=== PATIENT | female | born 2000 | race Two or more races ===

== ENCOUNTER 2023-07-06 22:02 | Emergency (ER) | payer MEDICAID, SELFPAY ==
--- NOTE | ~2023-07-06 | US_ITS ---
EXAMINATION: US ABDOMEN LIMITED CLINICAL INFORMATION: Abdominal pain and vomiting.. COMPARISON: None available. TECHNIQUE: Real-time imaging of the right upper quadrant abdominal viscera. FINDINGS: PANCREAS: The visualized portions of pancreas are within normal limits. The tail of the pancreas is obscured by bowel gas. LIVER: Normal. The liver is normal in size. The liver contour is normal. Parenchymal echogenicity is normal. No focal hepatic lesion. There is no intrahepatic biliary duct dilatation seen. GALLBLADDER: Significant shadowing extends from the gallbladder fossa consistent numerous gallstones. There is no gallbladder wall thickening or pericholecystic fluid. There is no tendon tenderness in the area of the gallbladder. Midline pain is noted. COMMON BILE DUCT: Normal in caliber measuring 0.3 cm in diameter. RIGHT KIDNEY: Normal. No hydronephrosis. No renal calculi or focal parenchymal lesions. The kidney measures 10.3 cm in maximum dimension. FREE FLUID: None. US/US abdomen limited IMPRESSION: Cholelithiasis. No gallbladder wall thickening or pericholecystic fluid. No tenderness in the area of the gallbladder. No biliary dilatation.
[2023-07-06 22:28] VITALS: BP 112/70; PULSE 68; RESP 18; TEMP 36.3; O2SAT 99; BMI 35.1
[2023-07-07 00:03] LABS: MANUAL DIFF FLAG NO
[2023-07-07 00:04] LABS: Basophils Absolute Auto 0.1 X10*3/uL (0.0-0.2); Basophils Percent Auto 0.8 % (0-2); Eosinophils Absolute Auto 0.1 X10*3/uL (0.0-0.4); Eosinophils Percent Auto 0.9 % (0-4); Hematocrit 40.8 % (37.0-47.0); Imm Gran Abs Auto 0.04 X10*3/uL (0.00-0.03); Imm Gran Pct Auto 0.3 % (0.0-0.4); Lymphocytes Absolute Auto 2.1 X10*3/uL (1.2-4.9); Lymphocytes Percent Auto 16.4 % (20-40); Mean Corpuscular HGB Conc 31.9 g/dl (31.0-35.0); Mean Corpuscular Hemoglobin 27.1 pg (27.0-33.0); Mean Corpuscular Volume 85.2 fL (80.0-98.0); Mean Platelet Volume 8.4 fL (9.4-12.3); Monocytes Absolute Auto 0.7 X10*3/uL (0.1-1.2); Monocytes Percent Auto 5.2 % (2-11); Neutrophils Absolute Auto 9.9 x10*3/uL (2.0-8.3); Neutrophils Percent Auto 76.4 % (45-73); Platelet Count 369 X10*3/uL (160-400); Red Blood Count 4.79 X10*6/uL (4.20-5.50); Red Cell Distribution Width 14.6 % (11.0-16.0)
[2023-07-07 00:24] LABS: Alanine Aminotransferase 108 U/L (0-31); Albumin Level 3.7 g/dL (3.5-5.0); Alkaline Phosphatase 147 U/L (39-117); Anion Gap 13 (12-20); Aspartate Amino Transferase 280 U/L (5-31); Bilirubin Total 0.8 mg/dL (0.0-1.0); Blood Urea Nitrogen 13 mg/dL (9-16); Calcium 9.9 mg/dL (8.4-10.2); Carbon Dioxide 26 mmol/L (22-29); Chloride 107 mmol/L (96-108); Creatinine Clr Calc Pharmacy 113.4; Estimated Glomerular Filt Rate > 60; Glucose Random 93 mg/dL (60-115); Lipase 21 U/L (8-78); Potassium 3.9 mmol/L (3.3-5.1); Sodium 142 mmol/L (135-145); Total Protein 6.3 g/dL (6.5-8.0)
[2023-07-07 01:12] VITALS: BP 114/73; PULSE 77; RESP 20; TEMP 36.7; O2SAT 99
[2023-07-07] MEDS: Ibuprofen 600 MG TABLET PO (01:20)
--- OUTSIDE RECORDS SUMMARY | 2023-07-07 02:52 | XMS_ITS | Continuity of Care Document ---
Author Name Unknown Organization [facility] Address [address] [place] [id number]- Care Team Providers Care Electrical Journeyman Name Role Phone Not on Staff, PCP Primary Care Physician Unavail able Encounter [facility] Date(s): 05/02/23 - 06/07/[address] [address]- Attending Physician: Марина Norwood MD Admitting Physician: Марина Norwood MD Referring Physician: Emmanuel SHAH, WOOD TURNING LATHE OPERATOR, Ashely Prieto Allergies, Adverse Reactions, Alerts No Known Allergies Immunizations Given and Recorded Vaccine Date Status Refusal Reason influenza virus vaccine, inactivated 05/01/23 Give n influenza virus vaccine, inactivated 04/24/23 Give n influenza virus vaccine, inactivated 06/10/22 Bhanu rded influenza virus vaccine, inactivated 1 08/16/19 Gi shireen influenza virus vaccine, inactivated 04/28/16 Give n influenza virus vaccine, inactivated 04/30/10 Give n influenza virus vaccine, inactivated 07/29/07 Give n tetanus/diphtheria/pertussis, acel(Tdap) 03/13/23 Given tetanus/diphtheria/pertussis, acel(Tdap) 09/03/12 Given SARS-CoV-2 (COVID-19) mRNA BNT-162b2 vac 08/28/21 Recorded SARS-CoV-2 (COVID-19) mRNA BNT-162b2 vac 03/26/21 Recorded SARS-CoV-2 (COVID-19) mRNA BNT-162b2 vac 03/05/21 Recorded Meningococcal Conjugate Vaccine 2 08/16/19 Given Meningococcal Conjugate Vaccine 3 02/08/14 Given Hepatitis A Adult Vaccine 08/16/19 Recorded Human Papillomavirus Vaccine 4 02/21/15 Given Human Papillomavirus Vaccine 5 02/08/14 Given Varicella Virus Vaccine 09/03/12 Given Varicella Virus Vaccine 12/15/00 Given Poliovirus Vaccine, Inactivated 04/30/10 Given Poliovirus Vaccine, Inactivated 10/31/03 Given Poliovirus Vaccine, Inactivated 01/01/00 Given Poliovirus Vaccine, Inactivated 99 Given Measles/Mumps/Rubella Virus Vaccine 10/31/03 Given Measles/Mumps/Rubella Virus Vaccine 12/15/00 Given Diphth/Tet/Pertussis, Acel (oldterm) 10/31/03 Give n Diphth/Tet/Pertussis, Acel (oldterm) 02/26/01 Give n Diphth/Tet/Pertussis, Acel (oldterm) 03/16/00 Give n Diphth/Tet/Pertussis, Acel (oldterm) 01/01/00 Give n Diphth/Tet/Pertussis, Acel (oldterm) 99 Give n Haemophilus B Conj Vaccine (oldterm) 02/26/01 Give n Haemophilus B Conj Vaccine (oldterm) 03/16/00 Give n Haemophilus B Conj Vaccine (oldterm) 01/01/00 Give n Haemophilus B Conj Vaccine (oldterm) 99 Give n Pneumococcal Conjugate (PCV7) (oldterm) 12/15/00 G iven Pneumococcal Conjugate (PCV7) (oldterm) 08/20/00 G iven Pneumococcal Conjugate (PCV7) (oldterm) 03/16/00 G iven Hepatitis B Vaccine (old term) 12/15/00 Given Hepatitis B Vaccine (old term) 99 Given Hepatitis B Vaccine (old term) 99 Given 1Result Comment: 22179-608-23 2Result Comment: [id number] 3Result Comment: VIS GIVEN 04/04/11 4Result Comment: gardasil 9 5Result Comment: VIS GIVEN 11/05/12 Medications Motrin IB 200 mg oral tablet 3 tablet = 600 mg, By Mouth, Every 6 hours, PRN for pain, # 50 tablet, 0 Refills, Maintenance, 06/02/23 6:54:00 EST, Tablet, [id number], Partial fill upon patient request if the prescription is for a schedule II opioid drug., 158, cm, 06/02/23... Start Date: 06/02/23 Status: Ordered Problem List Condition Confirmation Course Effective Dates Status Health St atus Informant Chlamydia infection during Confirmed Active History of delivery, currently in second trimester Confirmed Active History of chlamydia Confirmed Active History of Headache, migraine 1 Confirmed Active Obese class II Confirmed Active 1Treat on e her own with Tylenol Social History Social History Type Response Smoking Status Never smoker; Tobacc o user in household: No entered on: 01/26/18 Sex Patient Care team information Care Team Personnel Name: Not on Staff, PCP Position: [facility] Physician (General Medicine) Member Role: PCP Name: Peter Li MD Position: [facility] NETWORK SERVICES PROJECT MANAGER MD Member Role: Lifetime NETWORK SERVICES PROJECT MANAGER Physician Address: Address: [address] [place] [address] [place] [address]- Care Team Related Persons Name: CAN ELMORE Address: [id number] Address: home [address] Name: AMANDA HANEY Address: [address] [place] [address] Name: HECTOR GILLILAND Address: [address] [place] [address] Name: MACIE BOUDREAUX Address: [address] Address: home [address] Name: LAYTON COHN Address: [address] [place] [address]
--- OUTSIDE RECORDS SUMMARY | 2023-07-07 02:52 | XMS_ITS | Continuity of Care Document ---
Author Name Unknown Organization [facility] Address [address] [place] [id number]- Care Team Providers Care Alumni Secretary Name Role Phone Jacobo Angel MD Primary Care Physician [phone] [facility]counter [facility] Date(s): 01/21/23 - 02/20/23 [facility] [address] [address]- Allergies, Adverse Reactions, Alerts No Known Allergies Immunizations Given and Recorded Vaccine Date Status Refusal Reason influenza virus vaccine, inactivated 06/10/22 Bhanu rded influenza virus vaccine, inactivated 1 08/16/19 Gi shireen influenza virus vaccine, inactivated 04/28/16 Give n influenza virus vaccine, inactivated 04/30/10 Give n influenza virus vaccine, inactivated 07/29/07 Give n SARS-CoV-2 (COVID-19) mRNA BNT-162b2 vac 08/28/21 Recorded SARS-CoV-2 (COVID-19) mRNA BNT-162b2 vac 03/26/21 Recorded SARS-CoV-2 (COVID-19) mRNA BNT-162b2 vac 03/05/21 Recorded Meningococcal Conjugate Vaccine 2 08/16/19 Given Meningococcal Conjugate Vaccine 3 02/08/14 Given Hepatitis A Adult Vaccine 08/16/19 Recorded Human Papillomavirus Vaccine 4 02/21/15 Given Human Papillomavirus Vaccine 5 02/08/14 Given tetanus/diphtheria/pertussis, acel(Tdap) 09/03/12 Given Varicella Virus Vaccine 09/03/12 Given Varicella [...] Vaccine (old term) 99 Given 1Result Comment: [id number] 2Result Comment: [id number] 3Result Comment: VIS GIVEN 04/04/11 4Result Comment: gardasil 9 5Result Comment: VIS GIVEN 11/05/12 Medications aspirin 81 mg oral delayed release tablet See Instructions, 2 tablet By Mouth Daily at bedtime from 12 weeks gestation until 2 weeks , # 60 tablet, Refills 8, Tot. Refills 8, Maintenance, 11/04/22 8:59:00 EDT, Instructions Replace Required Details, Route to Pharmacy Electronically,... Start Date: 11/04/22 Status: Ordered O2 Sat Monitor See Instructions, # 1 each, Maintenance, check three times per day. call for pulse >115 or O2 <95, 02/10/23 17:42:00 EDT, Supply, 157.48, cm, 11/04/22 8:44:00 EDT, Height, 91, kg, 10/28/22 18:22:00 EDT, Dry Weight Start Date: 02/10/23 Status: Ordered Paxlovid 150 mg-100 mg (150 mg-100 mg Dose) oral tablet See Instructions, 300mg nirmatrelvir (two 150mg tablets) with 100mg ritonavir (one tablet). All 3 tablets taken together twice daily for 5 days, with or without food. Dispense: 30 tablets, # 30 tablet, 0 Refills, Maintenance, 02/10/23 18:53:00 EDT,... Start Date: 02/10/23 Status: Ordered Multivitamins with Vitamin B Complex, Vitamin C, Minerals and L- Methylfolate oral capsule 1 capsule, By Mouth, Daily, # 90 capsule, 2 Refills, Maintenance, 09/23/22 18:38:00 EDT, Capsule, [id number], Partial fill upon patient request if the prescription is for a schedule II opioiddrug., 1 capsule By Mouth Daily, 157.48, cm, 09/15/... Start Date: 09/23/22 Status: Ordered Prometrium 200 mg oral capsule See Instructions, place 1 capsule in vagina Daily at bedtime, # 30 capsule, 5 Refills, Acute 04/27/23 13:48:00 EST, 11/19/22 13:46:00 EDT, [id number], Partial fill upon patient request if theprescription is for a schedule II opioid drug., 157... Start Date: 11/19/22 Stop Date: 04/27/23 Status: Ordered Tylenol 8 Hour Caplet = 1,300 mg, By Mouth, Every 8 hours, 0 Refills, Maintenance, 11/04/22 8:46:00 EDT, Partial fill upon patient request if the prescription is for a schedule II opioid drug. Start Date: 11/04/22 Status: Ordered Unisom 25 mg oral tablet See Instructions, take 1 tablet by mouth at bedtime, # 60 tablet, 1 Refills, Maintenance, 11/04/22 8:59:00 EDT, [id number], Partial fill upon patient request if the prescription is for a schedule II opioid drug., 157.48, cm, 11/04/22 8:44:00 E... Start Date: 11/04/22 Status: Ordered Vitamin B6 25 mg oral tablet See Instructions, 1 tablet By Mouth 3 times Daily, # 90 tablet, 1 Refills, Maintenance, 11/04/22 8:59:00 EDT, [id number], Partial fill upon patient request if the prescription is for a schedule II opioid drug., 157.48, cm, 11/04/22 8:44:00 EDT... Start Date: 11/04/22 Status: Ordered Problem List Condition Confirmation Course Effective Dates Status H ealth Status Informant History of delivery, currently in second trimester Confirmed Active History of chlamydia Confirmed Active History of Headache, migraine 1 Confirmed Active Obese class II Confirmed Active Oligomenorrhea Confirmed Active 1Treat on e her own with Tylenol Social History Social History Type Response Smoking Status Never smoker; Tobacc o user in household: No entered on: 01/26/18 Sex Patient Care team information Care Team Personnel Name: Jacobo Angel MD Position: [facility] Resident Member Role: PCP Address: Address: [address] [place] [address] Name: Peter Li MD Position: [facility] PROCESS OPERATOR MD Member Role: Lifetime PROCESS OPERATOR Physician Address: Address: [address] [place] [address] [facility], [address] Care Team Related Persons Name: CAN ELMORE Address: [address] Address: home [address] Name: AMANDA HANEY Address: [address] [place] [address] Name: HECTOR GILLILAND Address: [address] [place] [address] Name: LAYTON COHN Address: [address] [place] [address]
--- OUTSIDE RECORDS SUMMARY | 2023-07-07 02:52 | XMS_ITS | Continuity of Care Document ---
Author Name Unknown Organization [facility] ter Address [address] [place] [id number]- Care Team Providers Care Insole Channeler Name Role Phone Not on Staff, PCP Primary Care Physician Unavail able Encounter [facility] Date(s): 05/30/23 - 06/02/[address] [address]- Discharge Disposition: A-D/C Home Attending Physician: Mani BANERJEE [OB], Ariana Schrader Admitting Physician: Mani BANERJEE [OB], Ariana Schrader Referring Physician: Mani BANERJEE [OB], Ariana Schrader Allergies, Adverse Reactions, Alerts No Known Allergies [...] Vaccine (old term) 99 Given 1Result Comment: 25945-960-60 2Result Comment: [id number] 3Result Comment: VIS GIVEN 04/04/11 4Result Comment: [...] 1Treat on e her own with Tylenol Vital Signs Most recent to oldest [Reference Range]: 1 2 3 Height 158 cm (06/02/23 10:00 AM) 158 cm (06/02/23 12:09 AM) 158 cm (06/01/23 8:51 PM) Weight 91 kg (05/30/23 6:47 PM) 91 kg (05/30/23 5:32 PM) Oxygen Saturation [94-100 %] 96 % (06/02/23 12:09 AM) 96 % (06/01/23 4:05 AM) 98 % (06/01/23 12:06 AM) Pulse Rate [55-90 bpm] 66 bpm (06/02/23 10:00 AM) 75 bpm (06/02/23 12:09 AM) 64 bpm (06/01/23 4:38 PM) Body Mass Index [18.5-24.99 kg/m2] 36.45 kg/m2 *>HHI* (05/30/23 5:32 PM) Blood Pressure [90-138/55-84 mm Hg] 128/86mm Hg (06/02/23 10:00 AM) 123/81mm Hg (06/02/23 12:09 AM) 114/77mm Hg (06/01/23 4:38 PM) Respiratory Rate [16-30 br/min] 18 br/min (06/02/23 10:00 AM) 18 br/min (06/02/23 12:09 AM) 18 br/min (06/01/23 4:38 PM) Temperature [96.8-100.4 DegF] 98.3 DegF (06/02/23 10:00 AM) 98.3 DegF (06/02/23 12:09 AM) 98.0 DegF (06/01/23 4:38 PM) Mode of Delivery (Oxygen) Room air (06/02/23 12:09 AM) Room air (06/01/23 4:05 AM) Room air (06/01/23 12:06 AM) Blood pressure sites Arm, right (06/01/23 4:38 PM) Arm, left (06/01/23 8:20 AM) Arm, left (05/31/23 6:54 PM) Temperature Route Axillary (06/02/23 10:00 AM) Oral (06/02/23 12:09 AM) Oral (06/01/23 4:38 PM) Dry Weight 91 kg (05/30/23 5:32 PM) Social History Social History Type Response Smoking Status Never smoker; Tobacc o user in household: No entered on: 01/26/18 Sex History and physical note * Chrissy Mcgraw DO: PERFORM Event Display: History and Physical Hospital Authored Date: Patient: ??AMANDA BOUDREAUX ? Age:??22 Years?Sex:??Female?:??2000?? OB Reason for Admission OB Reason for Admission?? No qualifying data available. LMP/EGA/ROSHAN Gestational Age (EGA) and ROSHAN? * Note: EGA calculated as of 05/30/2023 ?? ROSHAN:??05/23/2023?EGA*:??41 weeks ? History?(0,1,0,0)?Method:??Last Menstrual Period??(08/16/2022) History of Present Illness Patient is a 22 year old ??at 41w0d??gestation??presenting for induction of labor in the setting of late term gestation. She denies contractions,??leakage of fluid, or vaginal bleeding. Endorses good movement. Denies fever/chills, CAMPBELL, dizziness, changes in vision, CP, SOB, RUQ pain, UE/LE swelling. Overall, doing well with no complaints. ?? Reports uncomplicated . History of pre term labor at 21 weeks with ultimate demise after delivery. Denies past medical. Not taking any medications. Denies past surgeries.?? Review of Systems Constitutional:??No fever, chills, or fatigue. HEENT:??No changes in vision, sneezing, congestion, runny nose or sore throat. Skin:??No rash or itching. Cardiovascular:??No chest pain. Respiratory:??No shortness of breath. Gastrointestinal:??No abdominal pain, anorexia, nausea/vomiting, constipation/diarrhea. Genitourinary:??No burning micturition, urinary frequency or incontinence. Gynecologic: No vaginal bleeding, vaginal discharge, or vaginal itching. Neurologic:??No headaches. Musculoskeletal:??No muscle pains. Psychiatric:??No depression or anxiety. Physical Exam Vitals & Measurements T:??98.1?F?? HR:??86??(Peripheral)?? RR:??20?? BP:??130/80?? SpO2:??97%?? HT:??158??cm?? WT:??91??kg?? BMI:??36.45?? Constitutional:??Well-developed, no acute distress. Respiratory:??Equal chest rise bilaterally, no labored breathing.? Abdomen/GI:??Soft, non-tender, non-distended, no guarding or rebound tenderness.??Gravid. Gynecologic:?External Genitalia: normal exam, without lesions ??Cervix:??4/20/-3 Extremities:??Warm and well-perfused.?? Skin:??No rash or lesions.?? Neurological/Psychiatric:??Appearance appropriate, mood and affect stable. ?? Presentation:??cephalic by US OB Assessment Baby A Baseline:130 Baseline Description:Normal, 110-160 bpm Baseline Variability:Moderate variability Accelerations:Present Deceleration:None Activity:Present Uterine Number of Contractions per 10 minutes1 Monitor Mode, UterineExternal Cervical Cervical Dilatation4 cm Cervical Krwdqireia74% Station-3 Assessment/Plan Assessment:??22 year old at 41w0d admitted for induction of labor in the setting of late term gestation. GBS negative. Rh positive. With unfavorable cervical exam and Stevens score of 4, plan to start induction with misoprostol. Plan to recheck cervix prior to the next dose to assess possible switch to Pitocin. Category I tracing with reassuring maternal and status. ?? Encounter for induction of labor (Z34.90):? -Admit to L&D -CBC, Type and Screen ordered -Induction: misoprostol -Continuous monitoring and toco -Labor coping: prn -Rubella status: immune -Expected sex: female -Re-eval in 2 hours or prn ?? History of delivery (Z87.51):? H/o delivery at 21w3d, painless premature cervical dilation, infant after delivery s/p MFM consult s/p progesterone ?? Obesity in (O99.210):? BMI 37 at new OB ? Discussed with Dr. Singleton, attending physician. OB team notified. OB History History?(0,1,0,0)? # 1 ?Baby 1 ?Outcome Date:??07/08/2022?Outcome or Result:??Vaginal ?Gest Age:??21 weeks 3 days ? Outcome:??Live ? Sex:??Female?Wt:?343 g ?Hospital:??[facility] ?Comment:??12 mins then demise Labs Labs Labs & Tests Antibody Screen: Negative (11/04/22) Chlamydia Trachomatis Amplified Probe: NEGATIVE (04/24/23) Down Syndrome Age Risk FTS: Age Risk: (11/18/22) Down Syndrome Scrn Risk FTS: Screening Risk: (11/18/22) Glucose 3hr Gest Beatris, +120 minutes: 95 mg/dL (03/23/23) Glucose 3hr Gest Beatris, +180 minutes: 127 mg/dL (03/23/23) Glucose 3hr Gest Beatris, +60 minutes: 150 mg/dL (03/23/23) Glucose 50 Gm, +60 Minutes:??136 mg/dL??High (03/13/23) Glucose Tolerance, Fastin mg/dL (03/23/23) Hct:??33.1 %??Low (03/13/23) Hepatitis B Surface Antigen: NEGATIVE (11/04/22) Hepatitis C Ab: NEGATIVE (11/04/22) Hgb:??11 Gm/dL??Low (03/13/23) HIV 4th Generation Ab-Ag Result: NEGATIVE (11/04/22) RPR Titer Result: NOT INDICATED (03/13/23) Rubella IgG Ab: POSITIVE (11/04/22) Syphilis Screen by SYED: NEGATIVE (03/13/23) Trisomy 18 Scrn Risk FTS: Screening Risk: (11/18/22) Urine Culture: Urine Culture (11/04/22) Problem List Active Active Problem List Chlamydia infection during : (Medical) History of chlamydia: (Medical) History of Headache, migraine: (Medical) Treat on e her own with Tylenol History of delivery, currently in second trimester: (Medical) Obese class II: (Medical) : (Obstetric) (08/16/22) Procedure/Surgical History Vaginal delivery of fetus Home Medications Aspirin: 81 mg = 1 tablet, By Mouth, Daily Doxylamine: See Instructions, take 1 tablet by mouth at bedtime Durable Medical Equipment: See Instructions, check three times per day. call for pulse >115 or O2 <95 Multivitamin, : 1 capsule, By Mouth, Daily Pyridoxine: See Instructions, 1 tablet By Mouth 3 times Daily Allergies NKA Social History Alcohol Use: Never. Electronic Cigarette/Vaping Electronic Cigarette Use: Never. Employment/School Status: Employed. Other: [employer]. Exercise Self assessment: Fair condition. Home/Environment Living situation: Home/Independent. Lives with: Mother. Nutrition/Health Diet: Regular. Sexual Sexually involved in last 6 months: Yes. Gender identity: Identifies as female. Self described orientation: Straight or heterosexual. Substance Abuse Use: Never. Tobacco Never smoker, Tobacco user in household: No. Family History Mother: Blood clot; DVT - Deep vein thrombosis of lower limb Father: Diabetes mellitus Other: Asthma; Cardiac disease ? 05-APR-2016 02:49:52<$>; Diabetes mellitus type II Plan No Data Found * Mani BANERJEE [OB], Ariana R: PERFORM Event Display: History and Physical Hospital Authored Date: ?Attending Attestation:??I have seen and evaluated this patient. ??I have discussed the caseand its management with the resident and agree with the findings and plan as documented above in the resident???s note. ? Hospital Progress note * Donya Rangel RN: PERFORM, SIGN, VERIFY Event Display: Progress Note Hospital Authored Date: [id number] Patient: AMANDA BOUDREAUX Age: 22 years Sex: Female : 2000 Associated Diagnoses: None Author: Donya Rangel RN Findings B.R. pt denies pain. Fundus firm contracted with mild vaginal bleeding.Pt indep with barbara care withice, tucks and barbara bottle. Pt bonding well with infant. Pt ambulating with no difficulty and tolerating po. Pt denies any difficulty with voiding. Pt is requesting to soley formula feed infant and education was provided to pt related to formula feeding. Discussed breast care r/t formula feeding. * Sangeetha Moctezuma MD: PERFORM Event Display: Progress Note Hospital Authored Date: [id number] Patient: ??AMANDA BOUDREAUX ? Age:??22 Years?Sex:??Female?:??2000?? Subjective In to round on patient. Patient is feeling well with no acute concerns. States her pain is well controlled with PO pain medications. Her lochia is??like a normal period. She is ambulating, voiding spontaneously, and tolerating a regular diet without nausea/vomiting. Denies fever, chills, chest pain, shortness of breath,??persistent headache, vision changes, RUQ pain, calf swelling or tenderness.??She is bottle??feeding. Mood is??appropriate and she is bonding well with her baby. Patient??reports that she has a??good support system at home. Review of Systems Per HPI Physical Exam Vitals & Measurements T:??98.4?F?? HR:??76??(Peripheral)?? RR:??18?? BP:??126/76?? SpO2:??96%?? HT:??158??cm?? WT:??91??kg?? BMI:??36.45?? General:??Patient resting comfortably in bed. No??acute distress. Pleasant, cooperative. Cardiovascular: No signs of fluid overload. Pulmonary: No respiratory distress, no signs of accessory muscle use. Abdomen: Fundus firm, non-tender, at umbilicus. It Programmer Analyst: Moderate amount??of blood??on peripad. Minimal perineal??edema. Psych: Appropriate mood and affect. Answering questions appropriately. Extremities: No peripheral edema. No calf asymmetry, redness, or tenderness. Assessment/Plan Assessment:??22 yo G2 now P2 s/p uncomplicated vaginal delivery on 05/31 at 41+1 weeks. The patienthad a small 2nd degree perineal laceration. Delivery was otherwise uncomplicated and she had a postplacental IUD placed. Her course has been uncomplicated and she is meeting appropriate milestones. Anticipate discharge on PPD2. ?? state (Z39.2):? - Patient meeting all appropriate milestones - Expected discharge to home??PPD2 - Continue routine care - Diet: Regular - Pain control: Ibuprofen & Tylenol - Encourage ambulation - Feeding plan:??formula/bottle feeding - Infant sex:??female - PPBC: PP IUD in place - Follow-up:??in 4-6 wks for visit ?? History of delivery (Z87.51):? -H/o delivery at 21w3d, painless premature cervical dilation, infant after delivery -s/p MFM consult -s/p progesterone ?? Obesity in (O99.210):? -Pre- BMI 37 -Normotensive ?? OB Summary : 2 . Baby A - Weight: 3.234 kg Baby A - Date, Time of : 05/31/23 15:15:00 Baby A - Gender: Female Baby A - Complications: None EGA at Documented Date, Time: 41W 1D Weight at Delivery Baby A - Delivery Type: Vaginal Delivery Complications: None OB History History?(0,1,0,0)? # 1 ?Baby 1 ?Outcome Date:??07/08/2022?Outcome or Result:??Vaginal ?Gest Age:??21 weeks 3 days ? Outcome:??Live ? Sex:??Female?Wt:?343 g ?Hospital:??[facility] ?Comment:??12 mins then demise Active Problem List Active Problem List Chlamydia infection during : (Medical) History of chlamydia: (Medical) History of Headache, migraine: (Medical) Treat on e her own with Tylenol History of delivery, currently in second trimester: (Medical) Obese class II: (Medical) : (Obstetric) (08/16/22) Home Medications Aspirin: 81 mg = 1 tablet, By Mouth, Daily Doxylamine: See Instructions, take 1 tablet by mouth at bedtime Durable Medical Equipment: See Instructions, check three times per day. call for pulse >115 or O2 <95 Multivitamin, : 1 capsule, By Mouth, Daily Pyridoxine: See Instructions, 1 tablet By Mouth 3 times Daily Medications Medications (5) Active SCHEDULED: (0) CONTINUOUS: (1) Lactated Ringers (1000 mL) Cont IV 1,000 mL (Lactated Ringers 1,000 mL) ??1,000 mL, Intrauterine, 125 mL/hr PRN: (4) Acetaminophen 325 mg Tablet (Acetaminophen Tablet) ??650 mg, By Mouth, Every 4 hours Calcium Carbonate 500 mg (Calcium 200 mg) Chewable Tablet (Tums 500 mg Tablet) ??1,000 mg 2 tablet,Chew, 3 times a day Docusate Sodium 100 mg Capsule (Docusate Sodium Capsule) ??100 mg 1 capsule, By Mouth, 2 times a day Ibuprofen 800 mg Tablet (Ibuprofen Tablet) ??800 mg, By Mouth, Every 8 hours * Mary Cisneros RN: PERFORM, SIGN, VERIFY Event Display: Progress Note Hospital Authored Date: Patient: AMANDA BOUDREAUX Age: 22 years Sex: Female : 2000 Associated Diagnoses: None Author: Mary Cisneros RN Findings Evaluation A&Ox4. VSS. recovery plan of care reviewed with patient. Pt formula feeding .Good mother/baby bonding observed. Pt reports uterine cramping, medicated with Tylenol and Motrin PRN with +effect. OB bleeding WNL, pt aware to report large clots or new saturations of peripad. . Note * Blessing Greenwood RN: PERFORM Event Display: Discharge/Transfer Note Hospital Authored Date: Nursing Discharge Note Entered On: 06/02/2023 13:01 EST Performed On: 06/02/2023 13:00 EST by Blessing Greenwood RN Nursing Discharge Note 2 Discharge Time : 06/02/2023 12:37 EST Discharge Level of Care at Discharge : Home/[facility] Patient Left Unit Via : Ambulatory Patient Accompanied Off Unit with : Significant other DC Instructions Provided & Signed by Pt : Yes Patient Understands D/C Instructions : Yes Verbalized Understanding of D/C Plan By : Patient Patient Instructions Discharge Signed : Yes Did Pt have Specialty Bed or Wound Vac : No Krystyna OBREGON, Blessing - 06/02/2023 13:00 EST * Anahi Ramos CNM: PERFORM Event Display: Discharge/Transfer Note Hospital Authored Date: Patient: ??AMANDA BOUDREAUX ? Age:??22 Years?Sex:??Female?:??2000?? Admit Date Admission Date: 05/30/2023 Discharge Date 06/02/2023 OB Reason for Admission OB Reason for Admission Reason for admission: Induction of labor Reason for Induction: Late term [facility] Course 22 yo G2 now P2 s/p uncomplicated vaginal delivery of??baby girl??on 05/31 at 41+1 weeks. The patient had a small 2nd degree perineal laceration. Delivery was otherwise uncomplicated and she had a postplacental IUD placed. Her course has been uncomplicated and she is meeting appropriate milestones.?? She was discharged home in stable condition on PP day #2. States she plans to continue to live with her mom in supportive environment, FOB mostly lives with them. Denies any hx of??depression.?? Continues to feel well.?Bottle feeding. Has had a BM.?? Denies any heavy bleeding or worsening abdominal cramping.? Objective/Physical Exam on Day of Discharge Vitals & Measurements T:??98.3?F?? HR:??75??(Peripheral)?? RR:??18?? BP:??123/81?? SpO2:??96%?? HT:??158??cm?? WT:??91??kg?? BMI:??36.45?? VSS Gen: A&Ox3, NAD, laying comfortably in bed Breast: soft, no abnorm. Milk??currently not in. Abd: Soft, non-distended, non-tender, no R/G : Fundus firm, 2FB below umbilicus, non-tender.?? Perineum lac intact. Mild bleeding Ext: No Edema, NT Assessment/Plan/Discharge Diagnosis state (Z39.2):? - Patient meeting all appropriate milestones - Discharge to home today??PPD2 ??- Diet: Regular, continue at home?- Pain control: Ibuprofen & Tylenol prn , Rx faxed to [facility] in [place] - Feeding plan:??formula/bottle feeding, pt??educated on breast care PP. Encouraged Motrin, ice, nostimulation?? - PPBC: PP IUD in place - PP danger signs reviewed with pt prior to discharge - Follow-up:??in 6 wks for visit - scheduled for 06/2623 ?? History of delivery (Z87.51):? -H/o delivery at 21w3d, painless premature cervical dilation, infant after delivery Future Appointments Thursday 11:40 AM EST ?? With: Eriberto Toribio DO Where: [facility] - It Programmer Analyst [address] [place] [address]- Status: Pending Delivery Summary Delivery Summary Maternal Information ??Labor Information ?Baby A ?Labor Onset Methods: ??Induced ?Induction Methods: ??Amniotomy, Misoprostol, Pitocin ??Delivery Information ?Gestational Age at Delivery: ??41W 1D ?Anesthesia OB: ??Epidural ??05/31/23 18:05:57, Epidural ??05/31/23 07:49:00 ?Obstetrical Laceration: ??Perineal laceration ?Perineal Laceration: ??Midline, 2nd degree ?Perineal Laceration Repair: ??Vicryl suture ?Anesthesia for Repair: ??Epidural ?Delivery Complications: ??None ?Blood Loss(ml): ??250 mL ? Baby A ??Delivery Information ?Delivery Type: ??Vaginal ?Date, Time of : ??05/31/23 15:15:00 ? Position: ??Supine ?Foot of bed removed: ??No ?Delayed Cord Clamping: ??Yes ?Placenta Delivery Date/Time: ??05/31/23 15:22:00 ?Placenta Delivery Method: ??Assisted ?Placenta Appearance: ??Normal ?Placenta to Pathology: ??No ??Care Team ?Attending Provider: ??Nick SHETTY, Alaina Singh ?Delivery Physician: ??Lucien SHETTY, Chrissy ?automotive consultant #1: ??Lyly RN, Mariana ?automotive consultant #2: ??Yobani RN, Yokasta ?Painter Supervisor: ??Rebeka Ash MD ?Anesthesiology Attending: ??Royce Blue MD ??Labor Information ?ROM Date, Time: ??05/31/23 06:39:00 ? monitoring: ??External monitor ?? Information ? Outcome: ??Live ? Position: ??Occiput anterior ? Weight: ??3.234 kg ? Score 1 minute: ??8 ? Score 5 minute: ??9 ? Score 10 minute: ??9 ?Transferred To: ?? Care area with Family ?Umbilical Cord Description: ??3 vessel cord ? Complications: ??None ?Gender: ??Female ? Discharge Medications Stop taking these medications ???Aspirin (aspirin 81 mg oral tablet)???Doxylamine (Unisom 25 mg oral tablet)???Durable Medical Equipment (O2 Sat Monitor)???Multivitamin, ( Multivitamins with Vitamin B Complex, Vitamin C, Minerals and L-Methylfolate oral capsule)???Pyridoxine (Vitamin B6 25 mg oral tablet) Immunizations during Hospitalization Vaccine Date Status influenza virus vaccine, inactivated 05/01/2023 Given influenza virus vaccine, inactivated 04/24/2023 Given tetanus/diphtheria/pertussis, acel(Tdap) 03/13/2023 Given influenza virus vaccine, inactivated 06/10/2022 Recorded SARS-CoV-2 (COVID-19) mRNA BNT-162b2 vac 08/28/2021 Recorded SARS-CoV-2 (COVID-19) mRNA BNT-162b2 vac 03/26/2021 Recorded SARS-CoV-2 (COVID-19) mRNA BNT-162b2 vac 03/05/2021 Recorded Meningococcal Conjugate Vaccine 08/16/2019 Given Comments : [id number] influenza virus vaccine, inactivated 08/16/2019 Given Comments : [id number] Hepatitis A Adult Vaccine 08/16/2019 Recorded influenza virus vaccine, inactivated 04/28/2016 Given Human Papillomavirus Vaccine 02/21/2015 Given Comments : gardasil 9 Meningococcal Conjugate Vaccine 02/08/2014 Given Comments : VIS GIVEN 04/04/11 Human Papillomavirus Vaccine 02/08/2014 Given Comments : VIS GIVEN 11/05/12 tetanus/diphtheria/pertussis, acel(Tdap) 09/03/2012 Given Varicella Virus Vaccine 09/03/2012 Given Poliovirus Vaccine, Inactivated 04/30/2010 Given influenza virus vaccine, inactivated 04/30/2010 Given influenza virus vaccine, inactivated 07/29/2007 Given Measles/Mumps/Rubella Virus Vaccine 10/31/2003 Given Poliovirus Vaccine, Inactivated 10/31/2003 Given Diphth/Tet/Pertussis, Acel (oldterm) 10/31/2003 Given Haemophilus B Conj Vaccine (oldterm) 02/26/2001 Given Diphth/Tet/Pertussis, Acel (oldterm) 02/26/2001 Given Pneumococcal Conjugate (PCV7) (oldterm) 12/15/2000 Given Varicella Virus Vaccine 12/15/2000 Given Measles/Mumps/Rubella Virus Vaccine 12/15/2000 Given Hepatitis B Vaccine (old term) 12/15/2000 Given Pneumococcal Conjugate (PCV7) (oldterm) 08/20/2000 Given Haemophilus B Conj Vaccine (oldterm) 03/16/2000 Given Pneumococcal Conjugate (PCV7) (oldterm) 03/16/2000 Given Diphth/Tet/Pertussis, Acel (oldterm) 03/16/2000 Given Haemophilus B Conj Vaccine (oldterm) 01/01/2000 Given Poliovirus Vaccine, Inactivated 01/01/2000 Given Diphth/Tet/Pertussis, Acel (oldterm) 01/01/2000 Given Diphth/Tet/Pertussis, Acel (oldterm) 2000 Given Haemophilus B Conj Vaccine (oldterm) 2000 Given Poliovirus Vaccine, Inactivated 1999 Given Hepatitis B Vaccine (old term) 2000 Given Hepatitis B Vaccine (old term) 2000 Given Feeding Method Feeding Method: Formula (06/01/23 09:27:00) Follow-Up Appointments Added Follow Up ?Time Frame ?Comments Please call and schedule a follow up appointment with OBGYN in 4-6 weeks * Markie OBREGON, Isi: PERFORM Event Display: Patient Education/Instruction Authored Date: [id number] Inpatient Adult Discharge Instructions [address] [address] Name: AMANDA BOUDREAUX : 2000 Visit: 05/30/2023 17:09:00 Current Date: 06/02/2023 11:58 Account: [id number] Inpatient Adult Discharge Instructions We would like to thank you for allowing us to assist you with your healthcare needs. The following includes patient education materials and information regarding your injury/illness. Our entire staffstrives to provide an excellent experience for our patients and their families. PLEASE ENSURE YOU FOLLOW-UP PER THE INSTRUCTIONS BELOW! ?? YOUR OPINION IS IMPORTANT TO US! Please complete the survey you may receive by mail or email. Your feedback will be used to make improvements to the healthcare experiences of our patients and their families. Surveys are administered by [employer] ?? If further treatment with your primary care physician or another doctor is recommended, it is important for you to keep the appointment. Call your primary care physician or return to the Emergency Department immediately if your condition worsens, fails to improve, or new symptoms develop. If you need to find a doctor, you can call [facility] [employer] for a referral at [phone] or toll free at [phone]) or log in to [email or web address].. ?? [facility], in keeping with [facility] guidance, no longer requires face masks for staff, patientsor visitors in most situations. Similiar to time spent indoors at other locations, there is the chance that you were exposed to repiratory viruses during your time with us (such as flu or COVID-19). If you develop symptoms concerning for a viral respiratory infection, please seek testing (and treatment if indicated) from your medical provider or home test kit. ?? You can view and manage your care through the patient portal or by using a health care kenan of your choosing. [employer] is a website that allows you to securely view your medical information including your hospital discharge summary, office visit summaries, medications and follow-up visits. You can also request appointments, renew medications, and request access to your medical information using a health care kenan of your choosing, or just ask a question. You can enroll at [email or web address] or register during your next office visit. You have been discharged from [facility], Patient Care Unit: [facility]. If you have any questions regarding these instructions after you leave, please call us and we will be happy to assist you. [facility] Your Care Team Attending Physician Mani BANERJEE [OB], Ariana Schrader Discharging Providers Anahi Ramos CNM Reason for Admission Induction of labor Your Diagnosis History of delivery Obesity in state Tests Performed Below is a partial list of the tests performed during your hospitalization. You may have had other tests and procedures not included in this list. Please discuss all test results with your provider. CBC Type and Screen Primary Care Provider Not on Staff, PCP [facility] Care Proxy on File Yes - Health Care Proxy Discharge Vitals Temperature: 98.3 DegF Height: 158 cm Pulse Rate: 66 bpm Weight: 91 kg Respiratory Rate: 18 br/min Body Mass Index:??36.45 kg/m2??Critical Systolic Blood Pressure: 128 mm Hg Body surface area: 2 Diastolic Blood Pressure:??86 mm Hg??High ?? Oxygen Saturation: 96 % ?? Studies Pending All tests and labs ordered during this hospital stay have been completed unless listed below. Please discuss all pending results with your provider listed above in these instructions. ?? No incomplete studies found What to do next Instructions From Your Doctor Discharge Orders Instructions from your Care Team Discharge Care Instructions for the New Mom?? Please take a few moments to read through these helpful instructions before you leave the hospital.??Your nurse will be glad to answer any questions you may have. ??You can also find this and more information throughout the purple??Becoming a Family??booklet,??[facility] New Beginnings Guide??and the?? Consultation Services Guide??given to you after the of your baby. ??You may also phone our nurses stations if you have further questions. ??[facility]: ??First Floor ([phone]), Second Floor ([phone]). ?? Please call your provider if you have any questions or concerns ??before your next appointment. For ongoing support??please?Like?us on our Facebook page?[facility] New Beginnings?and sign up for our email newsletter at??[email or web address]. ??News and information will be sent to you??until your baby???s third birthday. Instructions for the New Mother Activity:?? For the next 2 weeks at home?no heavy lifting, avoid unnecessary stair climbing, and no driving (especially if you are taking medicine that may make you sleepy or feel that you are sleep deprived). ?? For the next 4-6 weeks - no tampons, no douches, no sexual intercourse. Use your barbara bottle to rinse your perineum until your vaginal flow stops. ??If you have stitches in your bottom, they generally dissolve within 7-10 days. ??Apply Tucks/witch william pads until your soreness subsides. ??Use your bathroom at home every 3 to 4 hours, rinse, and change your pads. Warm showers feel great on achy muscles, sore backs and sore bottoms. Exercise: Walking is the best form of exercise. ??Wait until your follow up appointment with your provider in4-6 weeks before engaging in more strenuous activity. Diet: Drink plenty of fluids to avoid constipation and to help support your recovery. Eat plenty of iron rich foods such as red meat, iron fortified cereals like Total and Cream of Wheat, raisins, prunes, greens and spinach. ??These will help to build your blood count back up as all women lose some blood after delivery. ??Also add foods rich in Vitamin C such as strawberries, oranges, papayas, kale and lehman peppers. Continue to take your vitamins if you are . ??If you are not follow the instructions of your provider. ??If you were prescribed iron supplements such as ferrous sulfate, it is important to continue these until your doctor or lock and dam equipment repairer tells you to stop. ?? Breast Care for Bottle Feeding Mothers: Engorgement may occur within the first week after delivery. ??Your breasts may become hard and verytender. ??A cool compress of cleaned raw green cabbage leaves applied to the breast and changed as leaves wilt has been proven helpful for many women. ??Ice packs or frozen bags of peas also work nicely to ease the discomfort. ??The soreness will only last a couple of days. Keep your back turned to the water while showering to decrease breast stimulation. Wear a snug fitting bra such as a sports bra. ?? Control: Your doctor or lock and dam equipment repairer will discuss control methods with you when you are discharged from thespital or at your checkup. ??Be sure to let your provider know if you are . You had a Paragard IUD placed on 05/31/2023. ??This control method is effective for 10 years. ?? Pain Management: Cramping after is common and increases in strength with each baby you have. ??If you experience painful cramps, and have no allergies to acetaminophen (Tylenol) or ibuprofen (Motrin), you may continue to take these medications as you did in the hospital. ??Ibuprofen is also helpful with back aches following epidurals, perineal pain following a vaginal delivery, and moderate incisional pain after a section or a tubal ligation. ?? If you experience gas distention, especially after surgery, you may take an over the counter medication called simethicone. ??Take these chewable tablets 4 times a day as needed and directed on the package. ??Keep moving. ??Walking or rocking in a chair, will help to move the gas along. ??Carlos tea made with heated carlos raina (instead of water) and a tea bag, stirred to dissolve carbonation (bubbles) is a helpful drink to soothe a gassy stomach. Warning Signs of a Problem to Notify Your Doctor or Safety Grooving Machine Operator of: Heavy vaginal bleeding?which is??soaking a pad every hour??with bright red blood. Passing blood clots the size of an egg or larger. An incision that is not healing. A temperature greater than or equal to 100.4 especially if accompanied by any of the following symptoms?painful, frequent urination; extreme back or flank pain; lower belly pain with a foul smell to your vaginal flow; a red hard hot area on your breast. ?? Severe headache that does not go away after taking acetaminophen or ibuprofen. ?? A headache that changes your vision, including seeing spots or blurring. Right sided upper abdominal pain along the rib cage area. Pain in your legs that is warm and tender to the touch. depression signs may include?loss of interest in your baby, weepiness, difficulty focusing, weight loss with no appetite, exhaustion, feeling overwhelmed or anxious, feelings??of despair, or thoughts of harming yourself or your baby. ??These symptoms are important and should be discussed with your doctor or lock and dam equipment repairer. depression may develop over a period of time and needs prompt medical attention. ??Do not suffer in silence. ??In both the??Becoming a Family??booklet and the??[facility]??New Beginnings Guide??there is a screening tool used to identify women at risk, called the Nash Scale which you have taken in the office prior to delivery and again during your [facility] stay. ??Three to four weeks after your delivery, and before your check with your provider, take this test and share your results with your provider. ??Be sure to mention any score of 10 or more. ?? Many women, and even some partners, may experience the?baby blues?? . ??This is a state of feeling overwhelmed and weepy. ??Discomfort from childbirth, hormonal changes, exhaustion, changes to your body and lifestyle are a few of the things that contribute to the highs and lows new parents go through. ??Don???t be afraid to ask your partner or family and friends for some help at home so you can get some rest and a few minutes to yourself. ??The blues will quickly pass. Personal Safety: Every person has the right to feel safe at home and live free from physical or emotional harm. ??Ifyou have suffered mental or physical abuse at home, you are not alone. ??There is help. ??Please call HOTLINE or the Kiosked Program at [phone]. Scheduled Follow-Up Appointments Thursday 11:40 AM EST ?? With: Eriberto Toribio DO Where: [facility] - It Programmer Analyst [address] [place] [address]- Status: Pending You Need to Schedule the Following Appointments Follow Up with??Please call and schedule a follow up appointment with OBGYN in 4-6 weeks Discharge Medications AMANDA BOUDREAUX :2000 Visit Date:05/30/2023 Medications: Please continue your medications until treatment is completed or stopped by your provider. Medications not listed below should be discontinued. Discuss any questions related to medications with your provider. What How Much When Instructions Next Dose New Ibuprofen (Motrin IB 200 mg oral tablet) 3 tab(s) Oral Every 6 hours as needed for for pain Pickup at [facility] Pharmacy Information [facility]: [address], [place] [id number] [phone] ?? What How Much When Why Comments Stop Taking Aspirin (aspirin 81 mg oral tablet) 1 tab(s) Oral Daily Stop Taking Doxylamine (Unisom 25 mg oral tablet) See instructions Nausea and vomiting in take 1 tablet by mouth at bedtime ?? Stop Taking Durable Medical Equipment (O2 Sat Monitor) See instructions check three times per day. call for pulse >115 or O2 <95 ?? Stop Taking Multivitamin, ( Multivitamins with Vitamin B Complex, Vitamin C, Minerals and L-Methylfolate oral capsule) 1 capsule Oral Daily Stop Taking Pyridoxine (Vitamin B6 25 mg oral tablet) See instructions Nausea and vomiting in 1 tablet By Mouth 3 times Daily ?? Test Results Below is a partial list of the most recent Laboratory test results done prior to this discharge. You may have had other tests and procedures not included in this list. Please discuss all test resultswith your provider. CBC (05/30/2023) ???WBC - 12.3 k/mm3???RBC - 3.64 m/mm3???Hgb - 10.0 Gm/dL???Hct - 31.2 %???MCV - 85.7 femtoliters???MCH - 27.5 pg???MCHC - 32.1 g/dL???Platelet Count - 345 k/mm3???RDW-SD - 42.6 femtoliters???MPV - 9.1 femtoliters???Nucleated RBC (Automated) - 0.0 #/100 WBC'S???Abs. NRBC - 0.0 k/mm3 Type and Screen (05/30/2023) ???Blood Type - O Positive???Antibody Screen - Negative Allergies (NKA means No Known Allergies) NKA Problems Active Problems??(6) Chlamydia infection during ?? History of chlamydia?? History of Headache, migraine?? History of delivery, currently in second trimester?? Obese class II? Education Materials Below is the list of Educational Leaflet Providered with your Discharge Instructions. Valuables and Belongings I fully understand and agree that [facility] accepts no responsibility for all my personal property including clothing, toilet articles, radios, jewelry, dentures, hearing aids, rings, money, or any other property that is in my possession or is brought to me after admission. I understand certain valuables may be placed in a hospital safe for a short period of time. I understand that the hospital is not liable for loss or damage due to accident, fire, or other natural occurrence while said property is in the safe. I accept full responsibility for any personal property that I keep with me, and will not hold the hospital responsible in case of loss or disappearance. I acknowledge that i have been encouraged to send valuables and belongings home. ?? No Valuables/Belongings: No valuables/belongings present Review of Valuable and Belonging List: With patient Disposition of Belongings: Other: in room with pt Date for Pt to Sign Valuables/Belongings: 06/02/23 10:24:00 ?? Other Discharge Information ? Pulmonary Rehab Status?? Pulmonary Rehab Discharge Status?? Respiratory Rate: 18 br/min ? Common Emergency Awareness Tips IS IT A STROKE? Act FAST and Check for these signs: FACE Does the face look uneven? ARM Does one arm drift down? SPEECH Does their speech sound strange? TIME Call at any sign of stroke ?? Heart Attack Signs Chest discomfort: Most heart attacks involve discomfort in the center of the chest and lasts more than a few minutes, or goes away and comes back. It can feel like uncomfortable pressure, squeezing, fullness or pain. Discomfort in upper body: Symptoms can include pain or discomfort in one or both arms, back, neck, jaw or stomach. Shortness of breath: With or without discomfort. Other signs: Breaking out in a cold sweat, nausea, or lightheaded. Remember, MINUTES DO MATTER. If you experience any of these heart attack warning signs, call to get immediate medical attention! ?? Smoking can increase your chances of developing chronic health problems and can cause harmful effects to other family members in your house. If you smoke, you are strongly encouraged to quit. Please call [facility] at [phone] or [phone] ([phone]) or log in to [email or web address] for referrals to smoking cessation programs. ?? 711 Suicide & Crisis Lifeline is available 12/01 if you or someone you know needs to find a reason to keep living. By calling 974 you'll be connected to a skilled, trained counselor at a crisis center in your area. INPATIENT DISCHARGE INSTRUCTIONS SIGNATURE PAGE AMANDA BOUDREAUX Location:[facility] Registration Date and Time:05/30/2023 17:09 EST Primary Care Physician: Not on Staff, PCP Attending Physician: Mani BANERJEE [OB], Ariana Schrader, I AMANDA BOUDREAUX, have received the above patient education materials/instructions and have verbalized understanding. If ambulance or transport services are being used I further acknowledge being given a choice of service. ?? If you need to contact me, please call me at this number: . Patient/Keyboard Action Assembler Name: Patient/Keyboard Action Assembler Signature: Relationship to Patient: Witness Name/Signature: Date: * Donya Rangel RN: PERFORM, SIGN, VERIFY Event Display: Patient Education Handout Authored Date: [id number] Patient Care team information Care Team Personnel Name: Not on Staff, PCP Position: [facility] Physician (General Medicine) Member Role: PCP Name: Peter Li MD Position: [facility] COBOL MAINFRAME DEVELOPER Member Role: Lifetime COBOL MAINFRAME DEVELOPER Physician Address: Address: [address] [place], [place] [address] [place] [address]- Name: Mary Cisneros RN Position: [facility] OB RN Member Role: Patient Care Provider Care Team Related Persons Name: CAN ELMORE Address: [address] Address: [place] [address] [place] Name: AMANDA HANEY Address: home [address] [place] [address] Name: HECTOR GILLILAND Address: home [address] [place] [address] Name: AMANDA BOUDREAUX GIRL Address: [address] Address: home [address] Name: LAYTON COHN Address: [place] [address]
--- OUTSIDE RECORDS SUMMARY | 2023-07-07 02:52 | XMS_ITS | Continuity of Care Document ---
Author Name Unknown Organization [facility] Address [address] [place] [address]- Care Team Providers Care Insulator Helper Name Role Phone Jacobo Angel MD Primary Care Physician [facility]counter [facility] Date[facility]s): 12[facility]16/22 - 01/15/23 [facility] [address] [address]- Attending Physician: Howard Ledbetter Admitting Physician: Howard Ledbetter Referring Physician: AdmtrHoward Allergies, Adverse Reactions, Alerts No Known Allergies [...] SARS-CoV-2 (COVID-19) mRNA BNT-162b2 vac 03/05/21 Recorded Hepatitis A Pediatric Vaccine 2, 3 08/16/19 Given Meningococcal Conjugate Vaccine 4 08/16/19 Given Meningococcal Conjugate Vaccine 5 02/08/14 Given Hepatitis A Adult Vaccine 08/16/19 Recorded Human Papillomavirus Vaccine 6 02/21/15 Given Human Papillomavirus Vaccine 7 02/08/14 Given tetanus/diphtheria/pertussis, acel(Tdap) 09/03/12 Given Varicella Virus Vaccine 09/03/12 Given Varicella Virus Vaccine 12/15/00 Given Poliovirus Vaccine, Inactivated 04/30/10 Given Poliovirus Vaccine, Inactivated 10/31/03 Given Poliovirus Vaccine, Inactivated 8 03/16/00 Given Poliovirus Vaccine, Inactivated 01/01/00 Given Poliovirus [...] Vaccine (old term) 99 Given 1Result Comment: 70359-253-75 2Result Comment: 10432-571-56 3Result Comment: wrong dose ordered 4Result Comment: 94312-232-20 5Result Comment: VIS GIVEN 04/04/11 6Result Comment: gardasil 9 7Result Comment: VIS GIVEN 11/05/12 8Result Comment: entered in error Medications aspirin 81 mg oral delayed release tablet See Instructions, 2 tablet By Mouth Daily at bedtime from 12 weeks gestation until 2 weeks , # 60 tablet, Refills 8, Tot. Refills 8, Maintenance, 11/04/22 8:59:00 EDT, Instructions Replace Required Details, Route to Pharmacy Electronically,... Start Date: 11/04/22 Status: Ordered Multivitamins with Vitamin B Complex, [...] Team Personnel Name: Jacobo Angel MD Position: [facility] Resident Member Role: PCP Address: Address: [address] [place] [address] [place] [address]- Name: Peter Li MD Position: [facility] BUILD TECHNICIAN MD Member Role: Lifetime BUILD TECHNICIAN Physician Address: Address: [address] [place] [address] [facility], [address] Care Team Related Persons Name: CAN ELMORE Address: [address] Address: home [address] [place] [address] [place] Name: AMANDA HANEY Address: home [address] [place] [address] Name: HECTOR GILLILAND Address: home [address] [place] [address] Name: LAYTON COHN Address: [place] [address]
--- OUTSIDE RECORDS SUMMARY | 2023-07-07 02:52 | XMS_ITS | Continuity of Care Document ---
Author Name Unknown Organization [facility] Address [address] [place] [address]- Care Team Providers Care Ladies Attendant Name Role Phone Jacobo Angel MD Primary Care Physician [facility]counter [facility] Date(s): 12/09/22 - 01/08/[address] [address]- Allergies, Adverse Reactions, Alerts No Known Allergies [...] Vaccine (old term) 99 Given 1Result Comment: 49942-231-30 2Result Comment: [id number] 3Result Comment: wrong dose ordered 4Result Comment: [id number] 5Result Comment: VIS GIVEN 04/04/11 6Result Comment: [...] Team Personnel Name: Jacobo Angel MD Position: [facility] Resident Member Role: PCP Address: Address: [address] [place] [address] [place] [address]- Name: Peter Li MD Position: [facility] BEEF CATTLE FARM MANAGER MD Member Role: Lifetime BEEF CATTLE FARM MANAGER Physician Address: Address: [address] [place] [address] [facility], [place] [address]- Care Team Related Persons Name: CAN ELMORE Address: [address] Address: home [address] [place] [address] [place] Name: AMANDA HANEY Address: home [address] [place] [address] Name: HECTOR GILLILAND Address: home [address] [place] [address] Name: LAYTON COHN Address: [place] [address]
--- OUTSIDE RECORDS SUMMARY | 2023-07-07 02:52 | XMS_ITS | Continuity of Care Document ---
Author Name Unknown Organization [facility] Address [address] [place] [address]- Care Team Providers Care Airline Reservation Agent Name Role Phone Zachary BANERJEE, [facility] Primary Care Physician Encounter [facility] Date(s): 07/08/22 - 07/15/[address] [address]- Encounter Diagnosis Procedure and treatment not carried out for other reasons(Final) - Discharge Disposition: A-D/C Walkout Attending Physician: Peter Li MD Admitting Physician: Peter Li MD Allergies, Adverse Reactions, Alerts No Known Allergies Immunizations Given and Recorded Vaccine Date Status Refusal Reason SARS-CoV-2 (COVID-19) mRNA BNT-162b2 vac 03/26/21 Recorded SARS-CoV-2 (COVID-19) mRNA BNT-162b2 vac 03/05/21 Recorded Hepatitis A Pediatric Vaccine 1, 2 08/16/19 Given Meningococcal Conjugate Vaccine 3 08/16/19 Given Meningococcal Conjugate Vaccine 4 02/08/14 Given influenza virus vaccine, inactivated 5 08/16/19 Gi shireen influenza virus vaccine, inactivated 04/28/16 Give n influenza virus vaccine, inactivated 04/30/10 Give n influenza virus vaccine, inactivated 07/29/07 Give n Hepatitis A Adult Vaccine 08/16/19 Recorded Human [...] Vaccine (old term) 99 Given 1Result Comment: 75198-584-54 2Result Comment: wrong dose ordered 3Result Comment: 32399-380-93 4Result Comment: VIS GIVEN 04/04/11 5Result Comment: 63861-624-80 6Result Comment: gardasil 7Result Comment: VIS GIVEN 11/05/12 8Result Comment: entered in error Problem List Condition Confirmation Course Effective Dates Status Health St atus Informant Headache Confirmed Active Obese class II Confirmed Active Oligomenorrhea Confirmed Active Vaginitis Confirmed Active Vital Signs Most recent to oldest [Reference Range]: 1 Weight 91.0 kg (07/08/22 12:22 PM) Oxygen Saturation [94-100 %] 99 % (07/08/22 12:22 PM) Blood Pressure [90-138/55-84 mm Hg] 108/ 65mm Hg (07/08/22 12:22 PM) Respiratory Rate [16-30 br/min] 18 br/mi n (07/08/22 12:22 PM) Temperature [96.8-100.4 DegF] 97.7 DegF (07/08/22 12:22 PM) Mode of Delivery (Oxygen) Room air (07/08/22 12:22 PM) Blood pressure sites Arm, right (07/08/22 12:22 PM) Temperature Route Oral (07/08/22 12:22 PM) Dry Weight 91.0 kg (07/08/22 12:22 PM) Weight Obtained Via Standing scale (07/08/22 12:22 PM) Dry Weight Obtained Via Standing scale (07/08/22 12:22 PM) Social History Social History Type Response Smoking Status Never smoker; Tobacc o user in household: No entered on: 01/26/18 Sex Patient Care team information Care Team Personnel Name: Megan Sharma MD Position: [facility] Resident Member Role: PCP Address: Address: [address] [place] [address]- Name: Guillermo BANERJEE, Peter Singh Position: [facility] DOCUMENTATION WRITER MD Member Role: Lifetime DOCUMENTATION WRITER Physician Address: Address: [address] [place] [address] [place] [address]- Care Team Related Persons Name: CAN ELMORE Address: [address] Address: home [address] [place] [address] Name: AMANDA HANEY Address: home [address] [place] [address] Name: HECTOR GILLILAND Address: [place] [address] [place] [address]
--- OUTSIDE RECORDS SUMMARY | 2023-07-07 02:52 | XMS_ITS | Continuity of Care Document ---
Author Name Unknown Organization [facility] Address [address] [place] [address]- Care Team Providers Care Dental Equipment Repairer Name Role Phone Roz Couch DO Primary Care Physician Encounter [facility] Date(s): 08/23/20 - 08/30/20 [facility] [address] [place] [address]- Attending Physician: Not on Staff, Attending MD Referring Physician: Roz Couch DO Allergies, Adverse Reactions, Alerts Substance Reaction Severity Status NKA Active Immunizations Given and Recorded Vaccine Date Status Refusal Reason Hepatitis A Pediatric Vaccine 1, 2 08/16/19 [...] Vaccine (old term) 99 Given 1Result Comment: 28701-594-98 2Result Comment: wrong dose ordered 3Result Comment: 08120-050-04 4Result Comment: VIS GIVEN 04/04/11 5Result Comment: 71648-247-89 6Result Comment: gardasil 9 7Result Comment: VIS GIVEN 11/05/12 8Result Comment: entered in error Medications Diflucan 150 mg oral tablet 1 tablet = 150 mg, By Mouth, Once, # 1 tablet, 5 Refills, Soft Stop, 11/16/19 13:58:00 EDT, Tablet,[facility]/pharmacy #1972, 162.2, cm, 11/16/19 13:24:00 EDT, Height, 85.2, kg, 11/16/19 13:24:00 EDT, Dry Weight Start Date: 11/16/19 Status: Ordered Provera 10 mg oral tablet 10 mg, 1, tablet, By Mouth, Daily, take 1 per day for 10 days, # 30 tablet, Refills 3, Tot. Refills3, Maintenance, 06/19/20 13:38:00 EST, Route to Pharmacy Electronically, [facility]/pharmacy #1972, Partial fill upon patient request if the prescription is f... Start Date: 06/19/20 Status: Ordered Provera 10 mg oral tablet 10 mg, 1, tablet, By Mouth, Daily, take 1 daily for 10 days- continue after period if bleeding persists, # 30 tablet, Refills 3, Tot. Refills 3, Maintenance, 06/19/20 13:42:00 EST, Route to Pharmacy Electronically, [facility]/pharmacy #1972, Partial fill upo... Start Date: 06/19/20 Status: Ordered SUMAtriptan 100 mg oral tablet 1 tablet = 100 mg, By Mouth, Once, PRN as needed for migraine headache, may repeat dose after 2 hours up to a maximum of 200 mg in 24 hours, # 18 tablet, 1 Refills, Soft Stop, 08/16/19 17:17:00 EST, Tablet, [facility]/pharmacy #1972, 158.4, cm, 08/16/19 16:5... Start Date: 08/16/19 Status: Ordered Xulane 150 mcg-35 mcg/24 hr transdermal film, extended release 1 patch, Topically, Every week, # 12 each, 5 Refills, Maintenance, 11/16/19 13:58:00 EDT, [facility]/pharmacy #1972, 1 patch Topically Every week, 162.2, cm, 11/16/19 13:24:00 EDT, Height, 85.2, kg, 11/16/19 13:24:00 EDT, Dry Weight Start Date: 11/16/19 Status: Ordered Problem List Condition Effective Dates Status Health Status Inform ant Headache(Confirmed) Active Social History Social History Type Response Smoking Status Never smoker; Tobacc o user in household: No entered on: 01/26/18 Sex
--- OUTSIDE RECORDS SUMMARY | 2023-07-07 02:52 | XMS_ITS | Continuity of Care Document ---
Author Name Unknown Organization [facility] Address [address] [place] [address]- Care Team Providers Care Bobbin Winder Tender Name Role Phone Zachary BANERJEE, [facility] Primary Care Physician ( [phone] [place] [facility] Date(s): 06/24/22 - 07/30/[address] [address]- Attending Physician: Peter Li MD Admitting Physician: Peter Li MD Referring Physician: Peter Li MD Allergies, Adverse Reactions, [...] Vaccine (old term) 99 Given 1Result Comment: 70334-199-50 2Result Comment: wrong dose ordered 3Result Comment: 08239-784-52 4Result Comment: VIS GIVEN 04/04/11 5Result Comment: 33999-447-07 6Result Comment: gardasil 9 7Result Comment: VIS GIVEN 11/05/12 8Result Comment: entered in error Problem List Condition Confirmation Course Effective Dates Status Health St [facility] Informant Headache Confirmed Active Obese class II Confirmed Active Oligomenorrhea Confirmed Active Vaginitis Confirmed Active Social History Social History Type Response Smoking Status Never smoker; Tobacc o user in household: No entered on: 01/26/18 Sex Patient Care team information Care Team Personnel Name: Megan Sharma MD Position: [facility] Resident Member Role: PCP Address: Address: [address] [place] [address] Name: Peter Li MD Position: [facility] PILE DRIVING TECHNICIAN Member Role: Lifetime PILE DRIVING TECHNICIAN Physician Address: Address: [address] [place] [address] [facility], [place] [address]- Care Team Related Persons Name: RAMÍREZ, CAN Address: [address] Address: home [address] [place] [address] Name: AMANDA HANEY Address: home [address] [place] [address] Name: HECTOR GILLILAND Address: [place] [address]
--- OUTSIDE RECORDS SUMMARY | 2023-07-07 02:52 | XMS_ITS | Continuity of Care Document ---
Author Name Unknown Organization [facility] Address [address] [place] [address]- Care Team Providers Care Education Reporter Name Role Phone Not on Staff, PCP Primary Care Physician Unavail able [facility] Date[facility]s): 03/19/23 - 04/18/[address] [email or web address] Allergies, Adverse Reactions, Alerts No Known Allergies Immunizations Given and Recorded Vaccine Date Status Refusal Reason tetanus/diphtheria/pertussis, acel(Tdap) 03/13/23 Given tetanus/diphtheria/pertussis, acel(Tdap) 09/03/12 Given influenza virus vaccine, inactivated 06/10/22 Bhanu rded [...] Vaccine (old term) 99 Given 1Result Comment: 88876-443-63 2Result Comment: 44699-964-73 3Result Comment: VIS GIVEN 04/04/11 4Result Comment: gardasil 9 5Result Comment: VIS GIVEN 11/05/12 Medications O2 Sat Monitor See Instructions, # 1 each, Maintenance, check three times per day. call for pulse >115 or O2 <95, 02/10/23 17:42:00 EDT, Supply, 157.48, cm, 11/04/22 8:44:00 EDT, Height, 91, kg, 10/28/22 18:22:00 EDT, Dry Weight Start Date: 02/10/23 Status: Ordered Multivitamins with [...] Date: 11/19/22 Stop Date: 04/27/23 Status: Ordered Unisom 25 mg oral tablet [...] Personnel Name: Not on Staff, PCP Position: [facility] Physician (General Medicine) Member Role: PCP Name: Peter Li MD Position: [facility] PATIENTS TRANSPORTER MD Member Role: Lifetime PATIENTS TRANSPORTER Physician Address: Address: [address] [place] [address], [place] [address]- Care Team Related Persons Name: CAN ELMORE Address: [address] Address: home [address] [place] [address] Name: AMANDA HANEY Address: [address] [place] [address] Name: HECTOR GILLILAND Address: home [address] [place] [address] Name: LAYTON COHN Address: home [address] [place] [address]
--- OUTSIDE RECORDS SUMMARY | 2023-07-07 02:52 | XMS_ITS | Continuity of Care Document ---
Author Name Unknown Organization [facility] Address [address] [place] [address]- Care Team Providers Care Pss Delivery Professional Name Role Phone Zachary BANERJEE, [facility] Primary Care Physician [facility]counter [facility] Date(s): 06/10/22 - 07/10/22 [facility] [address] [place] [address] Allergies, Adverse Reactions, Alerts No Known Allergies [...] Vaccine (old term) 99 Given 1Result Comment: 07105-990-97 2Result Comment: wrong dose ordered 3Result Comment: 00483-747-59 4Result Comment: VIS GIVEN 04/04/11 5Result Comment: 06421-075-10 6Result Comment: gardasil 9 7Result Comment: VIS [...] Team Personnel Name: Megan Sharma MD Position: [facility] Resident Member Role: PCP Address: Address: [address] [place] [address]- Name: Peter Li MD Position: [facility] BAND DIRECTOR MD Member Role: Lifetime BAND DIRECTOR Physician Address: Address: [address] [place] [address] [facility], [place] [address]- [place] Care Team Related Persons Name: AMANDA HANEY Address: home [address] [place] [address] Name: HECTOR GILLILAND Address: [place] [address] Name: AMANDA BOUDREAUX GIRL Address: [address] Address: [address]
--- OUTSIDE RECORDS SUMMARY | 2023-07-07 02:52 | XMS_ITS | Continuity of Care Document ---
Author Name Unknown Organization [facility] Address [address] [place] [address]- Care Team Providers Care Board Design Engineer Name Role Phone Nileshmartíngerald Roz Primary Care Physician [facility]counter [facility] Date(s): 11/15/19 - 12/16/19 [facility] [address] [place] [address]- Attending Physician: Not on Staff, Attending MD Allergies, Adverse Reactions, Alerts Substance Reaction Severity [...] Vaccine (old term) 99 Given 1Result Comment: 19269-864-87 2Result Comment: wrong dose ordered 3Result Comment: 98331-863-01 4Result Comment: VIS GIVEN 04/04/11 5Result Comment: 03828-803-34 6Result Comment: gardasil 9 7Result Comment: VIS GIVEN 11/05/12 8Result Comment: entered in error Medications Diflucan 150 mg oral tablet 1 tablet = 150 mg, By Mouth, Once, # 1 tablet, 5 Refills, Soft Stop, 11/16/19 13:58:00 EDT, Tablet,[facility]/pharmacy #1972, 162.2, cm, 11/16/19 13:24:00 EDT, Height, 85.2, kg, 11/16/19 13:24:00 EDT, Dry Weight Start Date: 11/16/19 Status: Ordered SUMAtriptan 100 mg oral tablet 1 tablet = 100 mg, By Mouth, Once, PRN as needed for migraine headache, may repeat dose after 2 hours up to a maximum of 200 mg in 24 hours, # 18 tablet, 1 Refills, Soft Stop, 08/16/19 17:17:00 EST, Tablet, [facility]/pharmacy #1972, 158.4, cm, 08/16/19 16:5... Start Date: 08/16/19 Status: Ordered Xulane 150 mcg-35 mcg/24 hr transdermal film, extended release 1 patch, Topically, Every week, # 12 each, 5 Refills, Maintenance, 11/16/19 13:58:00 EDT, [facility]/pharmacy #1972, 1 patch Topically Every week, 162.2, cm, 11/16/19 13:24:00 EDT, Height, 85.2, kg, 11/16/19 13:24:00 EDT, Dry Weight Start Date: 11/16/19 Status: Ordered Problem List Condition Effective Dates Status Health Status Inform ant Headache(Confirmed) Active Social History Social History Type Response Smoking Status Never smoker; Tobacc o user in household: No entered on: 01/26/18 Sex
--- OUTSIDE RECORDS SUMMARY | 2023-07-07 02:52 | XMS_ITS | Continuity of Care Document ---
Author Name Unknown Organization [facility] Address [address] [place] [address]- Care Team Providers Care Syrup Mixer Assistant Name Role Phone Zachary BANERJEE, [facility] Primary Care Physician ( [phone] [facility]counter [facility] Date(s): 10/09/22 - 11/14/[address] [address]- Attending Physician: Mary Joya MD Admitting Physician: Mary Joya MD Referring Physician: Ariana Friend MD Allergies, Adverse Reactions, Alerts No Known [...] Vaccine (old term) 99 Given 1Result Comment: 89604-955-98 2Result Comment: 24881-763-87 3Result Comment: wrong dose ordered 4Result Comment: 57859-655-53 5Result Comment: VIS GIVEN 04/04/11 6Result Comment: [...] 1 capsule By Mouth Daily, 157.48, cm, ... Start Date: 09/23/22 Status: Ordered Tylenol 8 Hour Caplet = [...] Status H ealth Status Informant History of chlamydia Confirmed Active History of Headache, migraine 1 Confirmed Active Obese class II Confirmed Active Oligomenorrhea Confirmed Active 1Treat on e her own with Tylenol Social History Social History Type Response Smoking Status Never smoker; Tobacc o user in household: No entered on: 01/26/18 Sex Patient Care team information Care Team Personnel Name: Megan Sharma MD Position: [facility] Resident Member Role: PCP Address: Address: [address] [place] [address] Name: Peter Li MD Position: [facility] DIRECTOR PRESALES MD Member Role: Lifetime DIRECTOR PRESALES Physician Address: Address: [address] [place] [address] [facility], [place] [address]- Care Team Related Persons Name: CAN ELMORE Address: [address] Address: home [address] [place] [address] Name: AMANDA HANEY Address: [place] [address] Name: HECTOR GILLILAND Address: [place] [address] Name: LAYTON COHN Address: [place] [address]
--- OUTSIDE RECORDS SUMMARY | 2023-07-07 02:52 | XMS_ITS | Continuity of Care Document ---
Author Name Unknown Organization [facility] Address [address] [place] [address]- Care Team Providers Care Flux Tube Attendant Name Role Phone Zachary BANERJEE, [facility] Primary Care Physician ( [phone] [facility]counter [facility] Date(s): 10/10/22 - 11/09/22 [facility] [address] [place] [address] Allergies, Adverse Reactions, Alerts No Known Allergies [...] Vaccine (old term) 99 Given 1Result Comment: 20670-811-81 2Result Comment: 02894-472-80 3Result Comment: wrong dose ordered 4Result Comment: 00336-455-62 5Result Comment: VIS GIVEN 04/04/11 6Result Comment: [...] Team Personnel Name: Megan Sharma MD Position: [facility] Resident Member Role: PCP Address: Address: [address] [place] [address]- Name: Peter Li MD Position: [facility] NONPROFIT FUNDRAISER MD Member Role: Lifetime NONPROFIT FUNDRAISER Physician Address: Address: [address] [place] [address] [facility], [place], [place] [address] Care Team Related Persons Name: CAN ELMORE Address: [address] Address: home [address] [place] [address] Name: AMANDA HANEY Address: [place] [address] Name: HECTOR GILLILAND Address: [place] [address] Name: LAYTON COHN Address: [place] [address]
--- OUTSIDE RECORDS SUMMARY | 2023-07-07 02:52 | XMS_ITS | Continuity of Care Document ---
Author Name Unknown Organization [facility] Address [address] [place] [address]- Care Team Providers Care Cost Recorder Name Role Phone Not on Staff, PCP Primary Care Physician Unavail able Encounter [facility] Date(s): 02/13/23 - 06/07/[address] [address]- Attending Physician: Not on Staff, Attending MD Allergies, Adverse Reactions, Alerts No Known [...] Vaccine (old term) 99 Given 1Result Comment: 97957-723-66 2Result Comment: 89176-816-69 3Result Comment: VIS GIVEN 04/04/11 4Result Comment: [...] Personnel Name: Not on Staff, PCP Position: [facility] Physician (General Medicine) Member Role: PCP Name: Peter Li MD Position: [facility] OPERATIONS INTERN MD Member Role: Lifetime OPERATIONS INTERN Physician Address: Address: [address] [place] [address] [place] [address]- Care Team Related Persons Name: CAN ELMORE Address: [address] Address: [address] Name: AMANDA HANEY Address: [address] [place] [address] Name: HECTOR GILLILADN Address: [address] [place] [address] Name: MACIE BOUDREAUX Address: [address] Address: home [address] Name: LAYTON COHN Address: [address] [place] [address]
--- OUTSIDE RECORDS SUMMARY | 2023-07-07 02:52 | XMS_ITS | Continuity of Care Document ---
Author Name Unknown Organization [facility] Address [address] [place] [address]- Care Team Providers Care Prime Minister Name Role Phone Zachary BANERJEE, Megan Primary Care Physician [facility] Date(s): 02/17/22 - 04/16/22 [facility] [address] [place] [address]- Attending Physician: Werner Weathers MD Admitting Physician: Werner Weathers MD Allergies, Adverse Reactions, Alerts No Known [...] Vaccine (old term) 99 Given 1Result Comment: 92018-990-31 2Result Comment: wrong dose ordered 3Result Comment: 51730-622-72 4Result Comment: VIS GIVEN 04/04/11 5Result Comment: 14847-967-79 6Result Comment: gardasil 9 7Result Comment: VIS GIVEN 11/05/12 8Result Comment: entered in error Problem List Condition Confirmation Course Effective Dates Status Health St [facility] Informant Headache Confirmed Active Obese class I Confirmed Active Oligomenorrhea Confirmed Active Vaginitis Confirmed Active Social History Social History Type Response Smoking Status Never smoker; Tobacc o user in household: No entered on: 01/26/18 Sex Patient Care team information Personnel Name: Megan Sharma MD Address: Address: [address] [place] [address]
--- OUTSIDE RECORDS SUMMARY | 2023-07-07 02:53 | XMS_ITS | Continuity of Care Document ---
Author Name Unknown Organization [facility] Address [address] [place] [address]- Care Team Providers Care Cordage Sales Representative Name Role Phone Zachary BANERJEE, [facility] Primary [facility] Physician [facility] Date[facility]s): 08/02/21 - 09/01/21 [facility] [address] [place] [address]- Attending Physician: Howard Ledbetter Admitting Physician: AdmHowrad fountain Referring Physician: AdmtrHoward Allergies, Adverse Reactions, Alerts [...] Vaccine (old term) 99 Given 1Result Comment: 23287-610-05 2Result Comment: wrong dose ordered 3Result Comment: 28911-842-34 4Result Comment: VIS GIVEN 04/04/11 5Result Comment: 53481-140-61 6Result Comment: gardasil 9 7Result Comment: VIS GIVEN 11/05/12 8Result Comment: entered in error Problem List Condition Effective Dates Status Health Status Inform ant Chlamydia trachomatis infection(Confirmed) Active Headache(Confirmed) Active Oligomenorrhea(Confirmed) Active Vaginitis(Confirmed) Active Social History Social History Type Response Smoking Status Never smoker; Tobacc o user in household: No entered on: 01/26/18 Sex
--- OUTSIDE RECORDS SUMMARY | 2023-07-07 02:53 | XMS_ITS | Continuity of Care Document ---
Author Name Unknown Organization [facility] Address [address] [place] [address]- Care Team Providers Care Plaque Maker Name Role Phone Zachary BANERJEE, [facility] Date(s): 03/10/22 - 04/09/[address] [address] Allergies, Adverse Reactions, Alerts No Known [...] Vaccine (old term) 99 Given 1Result Comment: 29176-349-99 2Result Comment: wrong dose ordered 3Result Comment: 42353-271-14 4Result Comment: VIS GIVEN 04/04/11 5Result Comment: 84345-709-28 6Result Comment: gardasil 9 7Result Comment: VIS [...] Sex Patient Care team information Personnel Name: Zachary BANERJEE, Megan Address: Address: [address] [place] [address]
--- OUTSIDE RECORDS SUMMARY | 2023-07-07 02:53 | XMS_ITS | Continuity of Care Document ---
Author Name Unknown Organization [facility] Address [address] [place] [address]- Care Team Providers Care Entrepreneurial Finance Professor Name Role Phone Roz Couch DO Primary Care Physician Encounter [facility] Date(s): 08/23/20 - 09/22/20 [facility] [address] [place], [place] [address] Attending Physician: Howard Ledbetter Admitting Physician: AdmHoward fountain Referring Physician: AdmtrHoward Allergies, Adverse Reactions, Alerts Substance Reaction Severity [...] Vaccine (old term) 99 Given 1Result Comment: 98229-289-75 2Result Comment: wrong dose ordered 3Result Comment: 02106-418-31 4Result Comment: VIS GIVEN 04/04/11 5Result Comment: 15637-512-19 6Result Comment: gardasil 9 7Result Comment: VIS GIVEN 11/05/12 8Result Comment: entered in error Medications Diflucan 150 mg oral tablet 1 tablet = 150 mg, By Mouth, Once, # 1 tablet, 5 Refills, Soft Stop, 11/16/19 13:58:00 EDT, Tablet,[facility]/pharmacy #1972, 162.2, cm, 11/16/19 13:24:00 EDT, Height, 85.2, kg, 11/16/19 13:24:00 EDT, Dry Weight Start Date: 11/16/19 Status: Ordered Provera 10 mg oral tablet 10 mg, 1, tablet, By Mouth, Daily, take 1 per day for 10 days, # 30 tablet, Refills 3, Tot. Refills3, Maintenance, 06/19/20 13:38:00 EST, Route to Pharmacy Electronically, [facility]/pharmacy #1972, Partial fill upon patient request if the prescription is f... Start Date: 06/19/20 Status: Ordered Provera 10 mg oral tablet 10 mg, 1, tablet, By Mouth, Daily, take 1 daily for 10 days- continue after period if bleeding persists, # 30 tablet, Refills 3, Tot. Refills 3, Maintenance, 06/19/20 13:42:00 EST, Route to Pharmacy Electronically, [facility]/pharmacy #1972, Partial fill upo... Start Date: 06/19/20 Status: Ordered SUMAtriptan 100 mg oral tablet 1 tablet = 100 mg, By Mouth, Once, PRN as needed for migraine headache, may repeat dose after 2 hours up to a maximum of 200 mg in 24 hours, # 18 tablet, 1 Refills, Soft Stop, 08/16/19 17:17:00 EST, Tablet, [facility]/pharmacy #1972, 158.4, cm, 08/16/19 16:5... Start Date: 08/16/19 Status: Ordered Xulane 150 mcg-35 mcg/24 hr transdermal film, extended release 1 patch, Topically, Every week, # 12 each, 5 Refills, Maintenance, 11/16/19 13:58:00 EDT, [facility]/pharmacy #1972, 1 patch Topically Every week, 162.2, cm, 11/16/19 13:24:00 EDT, Height, 85.2, kg, 11/16/19 13:24:00 EDT, Dry Weight Start Date: 11/16/19 Status: Ordered Problem List Condition Effective Dates Status Health Status Inform ant Headache(Confirmed) Active Social History Social History Type Response Smoking Status Never smoker; Tobacc o user in household: No entered on: 01/26/18 Sex
--- OUTSIDE RECORDS SUMMARY | 2023-07-07 02:53 | XMS_ITS | Continuity of Care Document ---
Author Name Unknown Organization [facility] Address [address] [place] [address]- Care Team Providers Care Food Science Technician Name Role Phone MannyjoRoz duarte DO Primary Care Physician [facility] Date(s): 09/19/19 - 09/29/19 [facility] [address] [place] [address]- Attending Physician: Admtr, Ar8 Allergies, Adverse Reactions, Alerts Substance Reaction Severity [...] Vaccine (old term) 99 Given 1Result Comment: 31673-299-14 2Result Comment: wrong dose ordered 3Result Comment: 06959-366-43 4Result Comment: VIS GIVEN 04/04/11 5Result Comment: 63272-215-47 6Result Comment: gardasil 9 7Result Comment: VIS GIVEN 11/05/12 8Result Comment: entered in error Medications Diflucan 150 mg oral tablet 1 tablet = 150 mg, By Mouth, Once, # 1 tablet, 5 Refills, Soft Stop, 08/16/19 17:22:00 EST, Tablet,[facility]/pharmacy #1972, 158.4, cm, 08/16/19 16:54:00 EST, Height, 83.9, kg, 08/16/19 16:54:00 EST, Dry Weight Start Date: 08/16/19 Status: Ordered Estradiol Patch 0.025 mg/24 hours weekly transdermal film, extended release 1 patch, Topically, Every week, # 4 patch, 0 Refills, Maintenance, 09/19/19 12:24:00 EDT, Patch Start Date: 09/19/19 Status: Ordered SUMAtriptan 100 mg oral tablet 1 tablet = 100 mg, By Mouth, Once, PRN as needed for migraine headache, may repeat dose after 2 hours up to a maximum of 200 mg in 24 hours, # 18 tablet, 1 Refills, Soft Stop, 08/16/19 17:17:00 EST, Tablet, [facility]acy [facility], 158.4, cm, 08/16/19 16:5... Start Date: 08/16/19 Status: Ordered Problem List Condition Effective Dates Status Health Status Inform ant Headache(Confirmed) Active Vital Signs Most recent to oldest [Reference Range]: 1 Height 131.60 cm (11/21/08 2:07 PM) Weight 30.500 kg (11/21/08 2:07 PM) Pulse Rate [75-100 bpm] 84 bpm (11/21/08 2:07 PM) Body Mass Index [18.50-24.99] 17.61 *L* (11/21/08 2:07 PM) Blood Pressure [77-126/50-84 mm Hg] 100/ 60mm Hg (11/21/08 2:07 PM) Blood pressure sites Arm, right (11/21/08 2:07 PM) Social History Social History Type Response Smoking Status Never smoker; Tobacc o user in household: No entered on: 01/26/18 Sex
--- OUTSIDE RECORDS SUMMARY | 2023-07-07 02:53 | XMS_ITS | Continuity of Care Document ---
Author Name Unknown Organization [facility] Address [address] [place] [address]- Care Team Providers Care Medical Scientific Liaison Name Role Phone Roz Couch DO Primary Care Physician Encounter [facility] Date(s): 08/21/20 - 09/20/[address] [address]- Attending Physician: Howard Ledbetter Admitting Physician: Howard [...] Vaccine (old term) 99 Given 1Result Comment: 83131-479-23 2Result Comment: wrong dose ordered 3Result Comment: 77498-383-96 4Result Comment: VIS GIVEN 04/04/11 5Result Comment: [id number] 6Result Comment: gardasil 9 7Result Comment: VIS GIVEN 11/05/12 8Result Comment: entered in error Medications Diflucan 150 mg oral tablet 1 tablet = 150 mg, By Mouth, Once, # 1 tablet, 5 Refills, Soft Stop, 11/16/19 13:58:00 EDT, Tablet,[facility]/pharmacy #1972, 162.2, cm, 11/16/19 13:24:00 EDT, Height, 85.2, kg, 11/16/19 13:24:00 EDT, Dry Weight Start Date: 11/16/19 Status: Ordered Provera 10 mg oral tablet 10 mg, 1, tablet, By Mouth, Daily, take 1 per day for 10 days, # 30 tablet, Refills 3, Tot. Refills3, Maintenance, 06/19/20 13:38:00 EST, Route to Pharmacy Electronically, [facility]/pharmacy #1972, Partial fill upon patient request if the prescription is f... Start Date: 06/19/20 Status: Ordered Provera 10 mg oral tablet 10 mg, 1, tablet, By Mouth, Daily, take 1 daily for 10 days- continue after period if bleeding persists, # 30 tablet, Refills 3, Tot. Refills 3, Maintenance, 06/19/20 13:42:00 EST, Route to Pharmacy Electronically, [facility]/pharmacy #1972, Partial fill upo... Start Date: 06/19/20 Status: Ordered SUMAtriptan 100 mg oral tablet 1 tablet = 100 mg, By Mouth, Once, PRN as needed for migraine headache, may repeat dose after 2 hours up to a maximum of 200 mg in 24 hours, # 18 tablet, 1 Refills, Soft Stop, 08/16/19 17:17:00 EST, Tablet, [facility]/pharmacy #1972, 158.4, cm, 08/16/19 16:5... Start Date: 08/16/19 Status: Ordered Xulane 150 mcg-35 mcg/24 hr transdermal film, extended release 1 patch, Topically, Every week, # 12 each, 5 Refills, Maintenance, 11/16/19 13:58:00 EDT, [facility]/pharmacy #1972, 1 patch Topically Every week, [...]
--- OUTSIDE RECORDS SUMMARY | 2023-07-07 02:53 | XMS_ITS | Continuity of Care Document ---
Author Name Unknown Organization [facility] ter Address [address] [place] [address]- Care Team Providers Care Diamond Blender Name Role Phone Zachary BANERJEE, [facility] Primary Care Physician Encounter [facility] Date(s): 09/22/22 - 11/14/[address] [address] Attending Physician: Neal Mayberry MD Admitting Physician: Neal Mayberry MD Allergies, Adverse Reactions, Alerts No Known [...] Vaccine (old term) 99 Given 1Result Comment: [id number] 2Result Comment: 69312-950-18 3Result Comment: wrong dose ordered 4Result Comment: 46051-138-72 5Result Comment: VIS GIVEN 04/04/11 6Result Comment: [...] Team Personnel Name: Megan Sharma MD Position: [facility] Resident Member Role: PCP Address: Address: [address] [place] [address]- Name: Peter Li MD Position: [facility] RESTAURANT MANAGING PARTNER MD Member Role: Lifetime RESTAURANT MANAGING PARTNER Physician Address: Address: [address] [place] [address] [facility], [place], [place] [address] Care Team Related Persons Name: CAN ELMORE Address: [address] Address: home [address] [place] [address] Name: AMANDA HANEY Address: home [address] [place] [address] Name: HECTOR GILLILAND Address: home [address] [place] [address] Name: LAYTON COHN Address: [place] [address]
--- OUTSIDE RECORDS SUMMARY | 2023-07-07 02:53 | XMS_ITS | Continuity of Care Document ---
Author Name Unknown Organization [facility] Address [address] [place] [address]- Care Team Providers Care Dental Equipment Technician Name Role Phone Zachary BANERJEE, [facility] Primary Care Physician Encounter [facility] Date(s): 10/28/22 - 11/27/[address] [address]- Allergies, Adverse Reactions, Alerts No Known Allergies [...] Vaccine (old term) 99 Given 1Result Comment: 62824-856-28 2Result Comment: 37187-947-89 3Result Comment: wrong dose ordered 4Result Comment: 36866-759-45 5Result Comment: VIS GIVEN 04/04/11 6Result Comment: [...] Care team information Care Team Personnel Name: Zachary BANERJEE, Megan Position: [facility] Resident Member Role: PCP Address: Address: [address] [place] [address]- Name: Peter Li MD Position: [facility] GENERAL MANAGER FOOD MD Member Role: Lifetime GENERAL MANAGER FOOD Physician Address: Address: [address] [place] [address] [facility], [place] [address]- Care Team Related Persons Name: CAN ELMORE Address: [address] Address: home [address] [place] [address] [place] Name: AMANDA HANEY Address: home [address] [place] [address] Name: HECTOR GILLLIAND Address: home [address] [place] [address] Name: LAYTON COHN Address: [place] [address]
--- OUTSIDE RECORDS SUMMARY | 2023-07-07 02:53 | XMS_ITS | Continuity of Care Document ---
Author Name Unknown Organization [facility] Address [address] [place] [address]- Care Team Providers Care Door Maker Name Role Phone Zachary BANERJEE, [facility] Primary Care Physician Encounter [facility] Date(s): 10/18/21 - 11/17/21 [facility] [address] [place] [address]- Attending Physician: Howard Ledbetter Admitting Physician: AdmHoward [...] Vaccine (old term) 99 Given 1Result Comment: 87255-125-37 2Result Comment: wrong dose ordered 3Result Comment: 17741-119-13 4Result Comment: VIS GIVEN 04/04/11 5Result Comment: 18722-220-04 6Result Comment: gardasil 9 7Result Comment: VIS GIVEN 11/05/12 8Result Comment: entered in error Problem List Condition Effective Dates Status Health Status Inform ant Headache(Confirmed) Active Obese class I(Confirmed) Active Oligomenorrhea(Confirmed) Active Vaginitis(Confirmed) Active Social History Social History Type Response Smoking Status Never smoker; Tobacc o user in household: No entered on: 01/26/18 Sex
--- OUTSIDE RECORDS SUMMARY | 2023-07-07 02:53 | XMS_ITS | Continuity of Care Document ---
Author Name Unknown Organization [facility] Address [address] [place] [address]- Care Team Providers Care Switch Technician Name Role Phone Zachary BANERJEE, [facility] Primary Care Physician ( [phone] Encounter [facility] Date(s): 04/22/22 - 05/22/22 [facility] [address] [place] [address] Allergies, Adverse Reactions, Alerts No Known Allergies [...] Vaccine (old term) 99 Given 1Result Comment: 40984-024-30 2Result Comment: wrong dose ordered 3Result Comment: 71777-620-13 4Result Comment: VIS GIVEN 04/04/11 5Result Comment: 40627-957-48 6Result Comment: gardasil 9 7Result Comment: VIS [...] Team Personnel Name: Megan Sharma MD Position: [facility] Resident Member Role: PCP Address: Address: [address] [place] [address]- Name: Peter Li MD Position: [facility] RESEARCH AFFILIATE MD Member Role: Lifetime RESEARCH AFFILIATE Physician Address: Address: [address] [place] [address] [facility], [place], [place] [address] Care Team Related Persons Name: AMANDA HANEY Address: home [address] [place] [address] Name: HECTOR GILLILAND Address: [place] [address]
--- OUTSIDE RECORDS SUMMARY | 2023-07-07 02:53 | XMS_ITS | Continuity of Care Document ---
Author Name Unknown Organization [facility] Address [address] [place] [address]- Care Team Providers Care Tube Coater Name Role Phone Roz Couch DO Primary Care Physician Encounter [facility] Date(s): 09/19/19 - 09/26/19 [facility] [address] [place] [address]- Attending Physician: Connie Cloud MD Admitting Physician: Consuelo Trujillo MD Allergies, Adverse Reactions, Alerts Substance Reaction [...] Vaccine (old term) 99 Given 1Result Comment: 28525-604-73 2Result Comment: wrong dose ordered 3Result Comment: 10959-609-93 4Result Comment: VIS GIVEN 04/04/11 5Result Comment: 64926-734-13 6Result Comment: gardasil 9 7Result Comment: VIS GIVEN 11/05/12 8Result Comment: entered in error Medications Diflucan 150 mg oral tablet 1 tablet = 150 mg, By Mouth, Once, # 1 tablet, 5 Refills, Soft Stop, 08/16/19 17:22:00 EST, Tablet,[facility]/pharmacy #1972, 158.4, cm, 08/16/19 16:54:00 EST, Height, [...]
--- OUTSIDE RECORDS SUMMARY | 2023-07-07 02:53 | XMS_ITS | Continuity of Care Document ---
Author Name Unknown Organization [facility] ter Address [address] [place] [id number]- Care Team Providers Care Canvas Repairer Name Role Phone Jacobo Angel MD Primary Care Physician Encounter [facility] Date(s): 02/10/23 - 02/10/[address] [address] Discharge Disposition: A-D/C Home Attending Physician: Martha Chopra MD Admitting Physician: Martha Chopra MD Referring Physician: Martha Chopra MD Allergies, Adverse Reactions, Alerts No Known [...] Vaccine (old term) 99 Given 1Result Comment: [id number] 2Result Comment: [id number] 3Result Comment: VIS GIVEN 04/04/11 4Result Comment: [...] mg-100 mg Dose) oral tablet See Instructions, By Mouth 2 times a day, # 5 tablet, 0 Refills, Acute 02/16/23 3:36:00 EDT, 02/10/23 3:36:00 EDT, [id number], Partial fill upon patient request if the prescription is for a schedule II opioid drug., 157.48, cm, 11/04/22 8:44:0... Start Date: 02/10/23 Stop Date: 02/16/23 Status: Ordered Paxlovid 150 mg-100 mg (150 [...] Most recent to oldest [Reference Range]: 1 Oxygen Saturation [94-100 %] 98 % (02/10/23 11:38 AM) Blood Pressure [90-138/55-84 mm Hg] 94/5 4mm Hg (02/10/23 11:38 AM) Temperature [96.8-100.4 DegF] 99.0 DegF (02/10/23 11:38 AM) Mode of Delivery (Oxygen) Room air (02/10/23 11:38 AM) Blood pressure sites Arm, right (02/10/23 11:38 AM) Social History Social History Type Response Smoking Status Never smoker; Tobacc o user in household: No entered on: 01/26/18 Sex EKG study * Event Display: ECG 12-Lead Authored Date: Please click on pdf link to open report * Event Display: ECG 12-Lead Authored Date: [id number] Ventricular Rate: 110 BPM Atrial Rate: 110 BPM P-R Interval: 156 ms QRS Duration: 70 ms Q-T Interval: 328 ms QTC Calculation(Bazett): 443 ms P [place]: 51 degrees R [place]: 21 degrees T [place]: 30 degrees Sinus tachycardia Otherwise normal ECG When compared with ECG of 19-JUL-2022 17:35, Vent. rate has increased BY 39 BPM Confirmed by VANESA JACKSON MD ([id number]) on 02/10/2023 7:38:05 PM [place]: VANESA JACKSON MD Note * Teja Pérez RN: PERFORM Event Display: Discharge/Transfer Note Hospital Authored Date: [id number] Nursing Discharge Note Entered On: 02/10/2023 18:11 EDT Performed On: 02/10/2023 18:10 EDT by Teja Pérez RN Nursing Discharge Note 2 Discharge Time : 02/10/2023 18:10 EDT Discharge Level of Care at Discharge : Home/Senior Care/Foster Care Patient Left Unit Via : Ambulatory Patient Accompanied Off Unit with : Other: self DC Instructions Provided & Signed by Pt : Yes Patient Understands D/C Instructions : Yes Patient Instructions Discharge Signed : Yes Did Pt have Specialty Bed or Wound Vac : No Teja Pérez RN - 02/10/2023 18:10 EDT * Teja Pérez RN: PERFORM Event Display: Patient Education/Instruction Authored Date: [id number] Inpatient Adult Discharge Instructions [address] [address] Name: AMANDA BOUDREAUX : 2000 Visit: 02/10/2023 10:19:00 Current Date: 02/10/2023 16:40 Account: [id number] Inpatient Adult Discharge Instructions We would like [...] and their families. Surveys are administered by [employer] ?? If further treatment with your primary care physician or another doctor is recommended, it is important for you to keep the appointment. Call your primary care physician or return to the Emergency Department immediately if your condition worsens, fails to improve, or new symptoms develop. If you need to find a doctor, you can call [facility] for a referral at [phone] or toll free at [phone] ([phone]) or log in to [email or web address].. ?? You can view and manage your care through the patient portal or by using a health care kenan of your choosing. [employer] is a website that allows you to securely view your medical information including your hospital discharge summary, office visit summaries, medications and follow-up visits. You can also request appointments, renew medications, and request access to your medical information using a health care kenan of your choosing, or just ask a question. You can enroll at [email or web address] or register during your next office visit. You have been discharged from [facility], Patient Care Unit: [id number]. If you have any questions regarding these instructions after you leave, please call us and we will be happy to assist you. [facility] Your Care Team Attending Physician Martha Chopra MD Tests Performed Below is a partial list of the tests performed during your hospitalization. You may have had other tests and procedures not included in this list. Please discuss all test results with your provider. Primary Care Provider Jacobo Angel MD Advance Directive Health Care Proxy on File Yes - Health Care Proxy Discharge Vitals Temperature: 99 DegF Systolic Blood Pressure: 94 mm Hg Diastolic Blood Pressure:??54 mm Hg??Low Oxygen Saturation: 98 % Studies Pending All tests and labs ordered during this hospital stay have been completed unless listed below. Please discuss all pending results with your provider listed above in these instructions. ?? No incomplete studies found What to do next Instructions From Your Doctor Discharge Orders Scheduled Follow-Up Appointments Thursday 4:00 PM EDT ?? Where: [facility] - Housekeeper Caregiver [address] [place] [address]- Status: Pending You Need to Schedule the Following Appointments Follow Up with??Ivonne SHETTY, Dasha Rivera Why: Please keep all scheduled appts with your OB Provider and call with any additional concerns orquestions. Where: [address] [facility] [place] [address]- Discharge Medications AMANDA BOUDREAUX :2000 Visit Date:02/10/2023 Medications: Please continue your medications until treatment is completed or stopped by your provider. Medications not listed below should be discontinued. Discuss any questions related to medications with your provider. What How Much When Why Instructions Next Dose Unchanged Acetaminophen (Tylenol 8 Hour Caplet) 1,300 Milligram Oral Every 8 hours Unchanged Aspirin (aspirin 81 mg oral delayed release tablet) See instructions 2 tablet By Mouth Daily at bedtime from 12 weeks gestation until 2 weeks ?? Unchanged Doxylamine (Unisom 25 mg oral tablet) See instructions Nausea and vomiting in take 1 tablet by mouth at bedtime ?? Unchanged Multivitamin, ( Multivitamins with Vitamin B Complex, Vitamin C, Minerals and L-Methylfolate oral capsule) 1 capsule Oral Daily Unchanged nirmatrelvir-ritonavir (Paxlovid 150 mg-100 mg (150 mg-100 mg Dose) oral tablet) See instructions By Mouth 2 times a day ?? Unchanged Progesterone (Prometrium 200 mg oral capsule) See instructions place 1 capsule in vagina Daily at bedtime ?? Unchanged Pyridoxine (Vitamin B6 25 mg oral tablet) See instructions Nausea and vomiting in 1 tablet By Mouth 3 times Daily ?? Test Results Below is a partial list of the most recent Laboratory test results done prior to this discharge. You may have had other tests and procedures not included in this list. Please discuss all test resultswith your provider. Allergies (NKA means No Known Allergies) NKA Problems Active Problems??(6) History of chlamydia?? History of Headache, migraine?? History of delivery, currently in second trimester?? Obese class II?? Oligomenorrhea? Education Materials Below is the list of Educational Leaflet Providered with your Discharge Instructions. Paxlovid 5-Day Oral Tablet 150 mg/100 mg (nirmatrelvir/ritonavir)?? Premature Labor?? Understanding Coronavirus Disease 2019 COVID-19?? COVID-19 Information for Families?? Valuables and Belongings I fully understand and agree that [facility] accepts no responsibility for all my personal [...] encouraged to send valuables and belongings home. ? Common Emergency Awareness Tips IS IT [...] are strongly encouraged to quit. Please call [facility] Link at [phone] or [phone] ([phone]) or log in to [email or web address] for referrals to smoking cessation programs. ?? 731 Suicide & Crisis Lifeline is available 12/01 if you or someone you know needs to find a reason to keep living. By calling 884 you'll be connected to a skilled, trained counselor at a crisis center in your area. INPATIENT DISCHARGE INSTRUCTIONS SIGNATURE PAGE AMANDA BOUDREAUX Location:[facility] Registration Date and Time:02/10/2023 10:19 EDT Primary Care Physician: Jacobo Angel MD, Attending Physician: Martha Chopra MD, I AMANDA BOUDREAUX, have received the above patient education materials/instructions and have verbalized understanding. If ambulance or transport services are being used I further acknowledge being given a choice of service. ?? If you need to contact me, please call me at this number: . Patient/Environmental Monitoring Technician Name: Patient/Environmental Monitoring Technician Signature: Relationship to Patient: Witness Name/Signature: Date: * Teja Pérez RN: PERFORM Event Display: Patient Education Leaflets Authored Date: [id number] Paxlovid 5-Day Oral Tablet 150 mg/100 mg (nirmatrelvir/ritonavir) ?? [id number] Paxlovid 5-Day Oral Tablet 150 mg/100 mg (nirmatrelvir/ritonavir) Uses For treating COVID-19 (coronavirus). ?? Instructions Swallow the medicine without crushing or chewing it. This medicine may be taken with or without food. This medicine will work best if you take it at about the same time every day. Space doses evenly to keep a steady amount of medicine in the body. Store at room temperature away from heat, light, and moisture. Do not keep in the bathroom. If you forget to take a dose on time, take it if you remember within 8 hours of the scheduled dose.If you don???t remember until after more than 8 hours, skip the missed dose and return to your regular schedule with the next dose. Do not take 2 doses of this medicine at one time. Drug interactions can change how medicines work or increase risk for side effects. Tell your healthcare providers about all medicines taken. Include prescription and [id number]-[id number]-[id number] medicines, vitamins, and herbal medicines. Speak with your doctor or pharmacist before starting or stopping any medicine. Tell your doctor if symptoms do not get better or if they get worse. Keep using this medicine for the full number of days that it is prescribed. Do not stop the medicine even if you start to feel better. This medicine may decrease the effectiveness of some controls which use hormones (such as control pills and patches). Use an extra form of control, such as condoms, while on this medicine. Keep all appointments for medical exams and tests while on this medicine. Continue to wear a mask, practice social distancing, and follow other safety guidelines to protect yourself and those around you until otherwise directed. ?? Cautions Tell your doctor and pharmacist if you ever had an allergic reaction to a medicine. Do not use the medication any more than instructed. It is unknown if this medicine passes into breast milk. Ask your doctor before . During , this medicine should be used only when clearly needed. Talk to your doctor about the risks and benefits. Do not take Tiffanie's wort while on this medicine. Do not share this medicine with anyone who has not been prescribed this medicine. ?? Side Effects The following is a list of some common side effects from this medicine. Please speak with your doctor about what you should do if you experience these or other side effects. ??? diarrhea ??? changes in taste or unpleasant taste Call your doctor or get medical help right away if you notice any of these more serious side effects: ??? signs of liver damage (such as yellowing of eye or skin, dark urine, or unusual tiredness) A few people may have an allergic reaction to this medicine. Symptoms can include difficulty breathing, skin rash, itching, swelling, or severe dizziness. If you notice any of these symptoms, seek medical help quickly. ?? Extra Please speak with your doctor, nurse, or pharmacist if you have any questions about this medicine. ?? [email or web address] IMPORTANT NOTE: This document tells you briefly how to take your medicine, but it does not tell youall there is to know about it. Your doctor or pharmacist may give you other documents about your medicine. Please talk to them if you have any questions. Always follow their advice. There is a more complete description of this medicine available in [place]. Scan this code on your smartphone or tablet or use the web address below. You can also ask your pharmacist for a printout. If you have any questions, please ask your pharmacist. The display and use of this drug information is subject to Terms of Use. Copyright(c) 2022 [employer]. ?? [employer]. All rights reserved. This information is not intended as a substitute for professional medical care. Always follow your healthcare professional's instructions. ?? * Teja Pérez RN: PERFORM Event Display: Patient Education Leaflets Authored Date: [id number] Premature Labor ?? [id number] Premature Labor Premature labor ( labor) is when symptoms of labor occur before 37 weeks of . (Thisis 3 weeks before your due date.) Premature labor can lead to premature delivery. This means givingbirth to your baby early. Babies need at least 37 weeks of for all the organs to develop normally. The earlier the delivery, the greater the risks to the baby. In most cases, the cause of premature labor is unknown. But certain factors may make the problem more likely. These include: ??? History of premature labor with other pregnancies ??? Smoking ??? Alcohol or substance abuse ??? Low prepregnancy weight or weight gain during ??? Short time period between pregnancies ??? Being with twins, triplets, or more ??? History of certain types of surgery on the cervix or uterus ??? Having a short cervix ??? Certain infections There are a number of other risk factors. Ask your healthcare provider to help you understand the risk factors specific to your case. Then find out what you can do to control or reduce them. Contractions are one of the main signs of premature labor. A contraction is different from cramping. It may feel painful and the belly (abdomen) may get hard. It can last from a few seconds to a few minutes. Some women may feel only a sense of pressure in the belly, thighs, rectum, or vagina. Some may feel only the hardening of the uterus without pain or pressure. Or there may be a constant pain in the lower back, which spreads forward toward the belly. Premature labor is often treated with medicines.??A hospital stay may be needed. If labor doesn't progress and you and your baby are both healthy, you may be discharged to continue care at home. Home care ??? Ask your provider any questions you have. Be certain you understand how to care for yourself at home. Also follow all recommendations given by your healthcare providers. ??? Learn the signs of premature labor.??Watch for these signs when you get home. ??? Limit or restrict activities as advised. This may include stopping certain physical activities and cutting back hours at work. ??? Don't do strenuous work as advised by your provider.??Ask family and friends for help with tasks and support at home, if needed. ??? Don???t smoke, drink alcohol, or use other harmful substances. ??? Take steps to reduce stress. ??? Report any unusual symptoms to your provider. ?? Follow-up care Follow up with your healthcare provider directed.??Weekly visits with your provider may be needed. ?? When to seek medical advice Call your healthcare provider right away if any of these occur: ??? Regular or frequent contractions, whether they're painful or not ??? Pressure in the pelvis ??? Pressure in the lower belly or mildcramping in your belly with or without diarrhea ??? Constant low, dull backache ??? Gush or slow leaking of water from your vagina ??? Change in vaginal discharge (watery, mucus, or bloody) ??? Any vaginal bleeding ??? Decreased movement of your baby ?? Last Reviewed Date: 2021 ?? [employer]. All rights reserved. This information is not intended as a substitute for professional medical care. Always follow your healthcare professional's instructions. ?? * Teja Pérez RN: PERFORM Event Display: Patient Education Leaflets Authored Date: [id number] Understanding Coronavirus Disease 2019 COVID-19 ?? 323 Understanding Coronavirus Disease 2019 (COVID-19) Coronavirus disease 2019 (COVID-19) is a respiratory illness. It's caused by a new (novel) coronavirus called SARS-CoV-2. There are many types of coronavirus. Coronaviruses are a very common cause ofbronchitis. They may sometimes cause lung infection (pneumonia). Symptoms can range from mild to severe respiratory illness. These viruses are also found in some animals. COVID-19 was first found in people in [facility], in late 2018. In 2020, several cases of COVID-19 have been confirmed in the [place] COVID-19 is a rapidly- emerging infectious disease. This means that scientists are actively researching it.??There are information updates regularly. Public health officials are working to find the source. How the virus spreads is not yet fully understood, but it seems to spread and infect people fairly easily. Some people who have been infected in an area may be unsure how or where they became infected. The virus may be spread through droplets of fluid that a person coughs or sneezes into the air. It may be spread if you touch a surface with virus on it, such as a handle or object, and then touch your eyes, nose, or mouth. For the latest information, visit the CDC website at www.cdc.gov/coronavirus/2019-ncov. Or call 791-CLN-EWZF (196-687-9159). What are the symptoms of COVID-19? Some people have no symptoms or mild symptoms. Symptoms may appear 2 to 14 days after contact with the virus. Symptoms can include: ??? Fever ??? Coughing ??? Trouble breathing What are possible complications from COVID-19? In many cases, this virus can cause infection (pneumonia) in both lungs. In some cases, this can cause . Certain people are at higher risk for complications. This includes older adults and people with serious chronic health conditions such as heart or lung disease or diabetes. How is COVID-19 diagnosed? Your healthcare provider will ask about your symptoms. He or she will also ask about your recent travel and contact with sick people. If your healthcare provider thinks you may have COVID-19, he or she will work closely with your local health department on testing. Follow all instructions from yourhealthcare provider. COVID-19 is diagnosed by: ??? Nose and throat swab. A cotton-tipped swab is wiped inside your nose or throat. This is done tocheck for viruses in your nasal mucus. ??? Sputum culture. A small sample of mucus coughed from your lungs (sputum) is collected if you have a cough. It's checked for the virus. How is COVID-19 treated? There is currently no medicine to treat the virus. Treatment is done to help your body while it fights the virus. This is known as supportive care. Supportive care may include: ??? Pain medicine. These include acetaminophen and ibuprofen. They are used to help ease pain and reduce fever. ??? Bed rest. This helps your body fight the illness. For severe illness, you may need to stay in the hospital. Care during severe illness may include: ??? IV (intravenous) fluids. These are given through a vein to help keep your body hydrated. ??? Oxygen. Supplemental oxygen or ventilation with a breathing machine (ventilator) may be given. This isdone so you get enough oxygen in your body. Are you at risk for COVID-19? You are at risk for infection if you ???ve been to a place where people have been sick with this virus or if there are people with COVID-19 in your area. You are at risk if you: ??? Recently traveled to an area with a COVID-19 outbreak ??? Had contact with a sick person who recently traveled to an area with a COVID-19 outbreak ??? Had contact with a person who was diagnosed with or who may have COVID-19 ?? How can COVID-19 be prevented? There is no vaccine yet. The best prevention is to not have contact with the virus. The CDC advisesthat people should not travel to areas where there are COVID-19 outbreaks right now for any reason that is not urgent. For the most current CDC travel advisories, visit the CDC website at www.cdc.gov/ coronavirus/2019-ncov/travelers. ? To help prevent spreading the infection, wash your hands often, or use an alcohol-based hand print shop helper. The CDC advises that you should not wear a facemask if you are not sick. Prepare and protect yourself from COVID-19: ??? Wash your hands often with soap and clean, running water for at least 20 seconds. ??? If you don't have access to soap and water, use an alcohol-based hand print shop helper often. Make sure it has at least 60% alcohol. ??? Don't touch your eyes, nose, or mouth unless you have clean hands. ??? As much as possible, don't touch high-touch public surfaces such as doorknobs. Don't shake hands. ??? Clean home and work surfaces often with disinfectant. ??? Cough or sneeze into a tissue, then throw the tissue into the trash. If you don't have tissues, cough or sneeze into the bend of your elbow. ??? Stay informed about COVID-19 in your area. Follow local instructions about being in public. Be aware of events in your community that may be postponed or canceled such as school and sporting events. You may be advised not to attend public gatherings. You will be advised to stay about 6 feet from others as much as possible. This is called social distancing. ??? Check your home supplies. Consider keeping a 2-week supply of medicines, food, and other needed household items. ??? Make a plan for chil dcare, work, and ways to stay in touch with others. Know who will help you if you get sick. ??? Don't be around people who are sick. ??? There is no evidence right now that animals spread SARS-CoV-2.But it's always a good idea to wash your hands after touching any animals. Don't touch animals thatmay be sick. ??? Don ???t share eating or drinking utensils with sick people. ??? Don???t kiss someone who is sick. If you were in an area with COVID-19 in the last 14 days: ??? Call your healthcare provider and follow all instructions. Your activities and where you go maybe restricted for up to 2 weeks. ??? Take your temperature every morning and evening for at least 14 days. This is to check for fever. Keep a record of the readings. ??? Watch for symptoms of the virus. Call your provider if you have symptoms. Call your provider first before going to any clinic or hospital. ??? Stay home if you are sick for any reason. If you are sick with COVID-19 symptoms: ??? Stay home. Call your healthcare provider and tell them you have symptoms of COVID-19. Do this before going to any hospital or clinic. Follow your provider's instructions. You may be advised to isolate yourself at home. This is called self-isolation or self-quarantine. ??? Don ???t panic. Keep in mind that other illnesses can cause similar symptoms. ??? Stay away from work, school, and public places. Limit physical contact with family members. Limit visitors. Don't kiss anyone or share eating or drinking utensils. Clean surfaces you touch with disinfectant. This is to help prevent the virus from spreading. ??? Cough or sneeze into a tissue, then throw away the tissue in the trash. If youdon't have tissues, cough or sneeze into the bend of your elbow. ??? Wear a facemask only if you have symptoms ??? If you need to go in to a hospital or clinic, expect that the healthcare staff will wear protective equipment such as masks, gowns, gloves, and eye protection. You may be put in a separate room. This is to prevent the possible virus from spreading. ??? Tell the healthcare staff about recent travel. This includes local travel on public transport. Staff may need to find other people you have been in contact with. ??? Follow all instructions the healthcare staff give you. If you have been diagnosed with COVID-19 ??? Stay home. Don ???t leave your home unless you need to get medical care. Don't go to work, school, or public areas. Don't use public transportation or taxis. ??? Follow all instructions from yourhealthcare provider. Call your healthcare provider???s office before going. They can prepare and give you instructions. This will help prevent the virus from spreading. ??? If you need to go to a hospital or clinic, expect that the healthcare staff will wear protective equipment such as masks, gowns, gloves, and eye protection. You may be put in a separate room. This is to prevent the possible virus from spreading. ??? Wear a face mask. This is to protect other people from your germs. If you are not able to wear a mask, your caregivers should. ??? Stay away from other people in your home. ???Limit contact with pets and animals. Although there are no reports of pets getting sick with COVID-19, consider limiting contact with pets until more is known. ??? Don???t share household items or food. ??? Cover your face with a tissue when you cough or sneeze. Throw the tissue away. Then wash your hands. ??? Wash your hands often. If you are caring for a sick person: ??? Follow all instructions from healthcare staff. ??? Wash your hands often. ??? Wear protective clothing as advised. ??? Make sure the sick person wears a mask. If they can't wear a mask, don't stay in the same room with the person. If you must be in the same room, wear a facemask. ??? Keep trackof the sick person???s symptoms. ??? Clean surfaces, fabrics, and laundry thoroughly. ??? Keep other people and pets away from the sick person. When to call your healthcare provider Call your healthcare provider: ??? If you ???ve recently traveled or have been in an area with COVID-19 and have symptoms ??? If you have been diagnosed with COVID-19 and your symptoms are worse ? 3088-2700 [employer]. [address] [facility], [place] [address]. All rights reserved. This information is not intended as a substitute for professional medical care. Always follow your healthcare professional's instructions. ?? Patient Care team information Care Team Personnel Name: Jacobo Angel MD Position: [facility] Resident Member Role: PCP Address: Address: [address] [facility] [place] [address]- [place] Name: Peter Li MD Position: [facility] DOUGH PANNER MD Member Role: [employer] DOUGH PANNER Physician Address: Address: [address] [place] [address] [facility], [place] [address]- Name: Teja Pérez RN Position: [facility] OB RN Member Role: Patient Care Provider Care Team Related Persons Name: CAN ELMORE Address: [facility] [address] Address: home [address] Name: AMANDA HANEY Address: home [address] [place] [address] Name: HECTOR GILLILAND Address: home [address] [place] [address] Name: LAYTON COHN Address: home [address] [place] [address]
--- OUTSIDE RECORDS SUMMARY | 2023-07-07 02:53 | XMS_ITS | Continuity of Care Document ---
Author Name Unknown Organization [facility] Address [address] [place] [address]- Care Team Providers Care Evaporative Cooler Installer Name Role Phone Not on Staff, PCP Primary Care Physician Unavail able Encounter [facility] Date(s): 04/17/23 - 05/17/[address] [address] Allergies, Adverse Reactions, Alerts No Known Allergies [...] Vaccine (old term) 99 Given 1Result Comment: 62487-998-96 2Result Comment: 22345-373-18 3Result Comment: VIS GIVEN 04/04/11 4Result Comment: gardasil 9 5Result Comment: VIS GIVEN 11/05/12 Medications aspirin 81 mg oral tablet 1 tablet = 81 mg, By Mouth, Daily, # 30 tablet, 0 Refills, Maintenance, 05/15/23 10:00:00 EST, Tablet, Partial fill upon patient request if the prescription is for a schedule II opioid drug. Start Date: 05/15/23 Status: Ordered O2 Sat Monitor See Instructions, [...] cm, ... Start Date: 09/23/22 Status: Ordered Unisom 25 mg oral tablet [...] Personnel Name: Not on Staff, PCP Position: [facility] Physician (General Medicine) Member Role: PCP Name: Peter Li MD Position: [facility] FITNESS LEADER MD Member Role: [employer] FITNESS LEADER Physician Address: Address: [address] [place] [address] [facility] Care Team Related Persons Name: CAN ELMORE Address: [id number] Address: home [address] [place] [address] Name: AMANDA HANEY Address: home [address] [place] [address] Name: HECTOR GILLLIAND Address: home [address] [place] [id number] Name: LAYTON COHN Address: [place] [address]
--- OUTSIDE RECORDS SUMMARY | 2023-07-07 02:53 | XMS_ITS | Continuity of Care Document ---
Author Name Unknown Organization [facility] Address [address] [place] [address]- Care Team Providers Care Senior Java Engineer Name Role Phone Not on Staff, PCP Primary Care Physician Unavail able Encounter [facility] Date(s): 05/26/23 - 06/25/[address] [address] Allergies, Adverse Reactions, [...] Vaccine (old term) 99 Given 1Result Comment: 14581-950-82 2Result Comment: 59908-377-41 3Result Comment: VIS GIVEN 04/04/11 4Result Comment: [...] Personnel Name: Not on Staff, PCP Position: [facility] Physician (General Medicine) Member Role: PCP Name: Peter Li MD Position: [facility] ASSISTANT HEALTH EDUCATOR MD Member Role: [employer]etime ASSISTANT HEALTH EDUCATOR Physician Address: Address: [address] [place] [address] [facility] Care Team Related Persons Name: CAN ELMORE Address: [id number] Address: home [address] Name: AMANDA HANEY Address: home [address] [place] [address] Name: HECTOR GILLILAND Address: [address] [place] [address] Name: MACIE BOUDREAUX Address: [address] Address: home [address] Name: LAYTON COHN Address: [address] [place] [address]
--- OUTSIDE RECORDS SUMMARY | 2023-07-07 02:53 | XMS_ITS | Continuity of Care Document ---
Author Name Unknown Organization [facility] Address [address] [place] [address]- Care Team Providers Care Gamewell Operator Name Role Phone Zachary BANERJEE, Megan Primary Care Physician Encounter [facility] Date(s): 05/06/21 - 08/04/21 [facility] [address] [place] [address]- Attending Physician: Werner Weathers MD Admitting Physician: [...] Vaccine (old term) 99 Given 1Result Comment: [id number] 2Result Comment: wrong dose ordered 3Result Comment: 98120-204-09 4Result Comment: VIS GIVEN 04/04/11 5Result Comment: 17194-616-00 6Result Comment: gardasil 9 7Result Comment: VIS GIVEN 11/05/12 8Result Comment: entered in error Problem List Condition Effective Dates Status Health Status Inform ant Chlamydia trachomatis infection(Confirmed) Active Headache(Confirmed) Active Oligomenorrhea(Confirmed) Active Vaginitis(Confirmed) Active Social History Social History Type Response Smoking Status Never smoker; Tobacc o user in household: No entered on: 01/26/18 Sex
--- OUTSIDE RECORDS SUMMARY | 2023-07-07 02:53 | XMS_ITS | Continuity of Care Document ---
Author Name Unknown Organization [facility] Address [address] [place] [address]- Care Team Providers Care Inspector Production Plastic Parts Name Role Phone Roz Couch DO Primary Care Physician Encounter [facility] Date(s): 06/25/20 - 08/02/[address] [address] Attending Physician: Isi Mckeon MD Admitting Physician: Isi Mckeon MD Referring Physician: Aleshia Richey DO Allergies, Adverse Reactions, Alerts Substance Reaction [...] Vaccine (old term) 99 Given 1Result Comment: 32462-687-73 2Result Comment: wrong dose ordered 3Result Comment: 98213-468-36 4Result Comment: VIS GIVEN 04/04/11 5Result Comment: 23604-195-08 6Result Comment: gardasil 9 7Result Comment: VIS GIVEN 11/05/12 8Result Comment: entered in error Medications Diflucan 150 mg oral tablet 1 tablet = 150 mg, By Mouth, Once, # 1 tablet, 5 Refills, Soft Stop, 11/16/19 13:58:00 EDT, Tablet,[facility]/pharmacy #[id number], 162.2, cm, 11/16/19 13:24:00 EDT, Height, 85.2, kg, 11/16/19 13:24:00 EDT, Dry Weight Start Date: 11/16/19 Status: Ordered Provera 10 mg oral tablet 10 mg, 1, tablet, By Mouth, Daily, take 1 per day for 10 days, # 30 tablet, Refills 3, Tot. Refills3, Maintenance, 06/19/20 13:38:00 EST, Route to Pharmacy Electronically, [facility]/pharmacy #[id number], Partial fill upon patient request if the prescription is f... Start Date: 06/19/20 Status: Ordered Provera 10 mg oral tablet 10 mg, 1, tablet, By Mouth, Daily, take 1 daily for 10 days- continue after period if bleeding persists, # 30 tablet, Refills 3, Tot. Refills 3, Maintenance, 06/19/20 13:42:00 EST, Route to Pharmacy Electronically, [facility]/pharmacy #[id number], Partial fill upo... Start Date: [...]
--- OUTSIDE RECORDS SUMMARY | 2023-07-07 02:53 | XMS_ITS | Continuity of Care Document ---
Author Name Unknown Organization [facility] ter Address [address] [place] [id number] Care Team Providers Care Rug Dyer Name Role Phone Zachary BANERJEE, [facility] Primary Care Physician Encounter [facility] Date(s): 07/08/22 - 07/09/[address] [address] Discharge Disposition: A-D/C Home Attending Physician: Peter Li MD Admitting Physician: [...] Vaccine (old term) 99 Given 1Result Comment: 02113-562-40 2Result Comment: wrong dose ordered 3Result Comment: [id number] 4Result Comment: VIS GIVEN 04/04/11 5Result Comment: [id number] 6Result Comment: gardasil 9 7Result Comment: VIS GIVEN 11/05/12 8Result Comment: entered in error Medications Acetaminophen Tablet 650 mg, Tablet, By Mouth, Every 4 hours, PRN for Pain , Mild, (1-3), may give 325mg per patient preference and re-dose with 325mg within 4 hours, if needed. Patient should only receive a total of 650mg of Acetaminophen every 4 hours., Routine, 07/08... Start Date: 07/08/22 Stop Date: 07/10/22 Status: Discontinued Ibuprofen Tablet 800 mg, Tablet, By Mouth, Every 8 hours, PRN for Pain , Moderate, (4-6), may give 400mg per patientpreference and re-dose with 400mg within 8 hours if needed. Patient should only receive a total of 800mg of Ibuprofen every 8 hours., Routine, ... Start Date: 07/08/22 Stop Date: 07/10/22 Status: Discontinued Problem List Condition Confirmation Course Effective Dates Status Health St [facility] Informant Headache Confirmed Active Obese class II Confirmed Active Oligomenorrhea Confirmed Active Vaginitis Confirmed Active Results Orders for Microbiology Reports Name Date Placenta Culture w/ Gram Smear 07/08/22 Microbiology Reports TEST:Placenta Culture STATUS:Unauthenticated BODY SITE: SOURCE:SWAB1 COLLECTED DATE/TIME:07/08/22 5:19 PM Placenta Culture SPECIMEN DESCRIPTION : SWAB PLACENTA SIDE Specimen Received Compromised due to other leaking specimen from patient. Interpret results with caution SPECIAL REQUESTS : NONE GRAM STAIN : NO CELLS OR ORGANISMS SEEN REPORT STATUS : PRELIMINARY REPORT Vital Signs Most recent to oldest [Reference Range]: 1 2 3 Height 157.48 cm (07/08/22 3:34 PM) Weight 91.0 kg (07/08/22 3:34 PM) Oxygen Saturation [94-100 %] 100 % (07/08/22 5:32 PM) 98 % (07/08/22 5:17 PM) 99 % (07/08/22 5:05 PM) Pulse Rate [55-90 bpm] 90 bpm (07/09/22 9:36 AM) 107 bpm *H* (07/08/22 3:34 PM) Body Mass Index [18.5-24.99 kg/m2] 36.69 kg/m2 *>HHI* (07/08/22 3:34 PM) Blood Pressure [90-138/55-84 mm Hg] 111/72mm Hg (07/09/22 9:36 AM) 126/66mm Hg (07/08/22 7:04 PM) 126/69mm Hg (07/08/22 6:15 PM) Respiratory Rate [16-30 br/min] 16 br/min (07/09/22 11:08 AM) 0 br/min *L* (07/09/22 11:08 AM) 16 br/min (07/09/22 9:36 AM) Temperature [96.8-100.4 DegF] 97.8 DegF (07/09/22 9:36 AM) 97.8 DegF (07/08/22 3:34 PM) Blood pressure sites Arm, right (07/08/22 3:34 PM) Temperature Route Oral (07/09/22 9:36 AM) Oral (07/08/22 3:34 PM) Dry Weight 91.0 kg (07/08/22 3:34 PM) Social History Social History Type Response Smoking Status Never smoker; Tobacc o user in household: No entered on: 01/26/18 Sex History and physical note * Guillermo BANERJEE, Peter Singh: PERFORM Event Display: History and Physical Hospital Authored Date: [id number] Patient: ??AMANDA BOUDREAUX ? Age:??21 Years?Sex:??Female?:??2000?? OB Reason for Admission OB Reason for Admission Reason for admission: labor LMP/EGA/ROSHAN Gestational Age (EGA) and ROSHAN? * Note: EGA calculated as of 07/08/2022 ?? ROSHAN:??11/15/2022?EGA*:??21 weeks 3 days ? History?(0,0,0,0)?Method:??Ultrasound??(04/29/2022) History of Present Illness 21yo at 21+3 weeks EGA presenting as a direct admit from the office for bulging membranes. Pt reports intermittent cramping over the weekend, worsening since this morning. Also reports light spotting that has progressed into light bleeding. She reports pelvic pain and pressure at time of my evaluation in the office. On exam in the office, she was in mild distress d/t discomfort curled in thefetal position. SSE revealed bulging membranes. Additional exam was terminated and she was transferred by ambulance to L&D for direct admission (patient did not feel like she could get off of theexam table). On L&D she reports continued intermittent pressure and pain. Physical Exam gen: seen in right lateral decubitus, position, moans with cramping abd: obese, mildly tender : SSE not repeated, bulging membranes and parts felt in vagina - parts noted to be moving, no cervix palpable ext: nontender ble ?? BSUS: breech fetus, + FH ~ 110's ?? Assessment/Plan Assessment:??21yo @ 21+3 weeks EGA here with PTL, inevitable delivery. Patient and her family alerted about the findings in the office. Reiterated findings and inevitable nature of her delivery on labor and delivery. Reviewed will make patient comfortable - pt prefers epidural. We discussed fetus will likely be delivered with signs of life but is not able to be resuscitated due to gestational age - this was confirmed with the NICU attending. Additional discussion regarding her PTL/inevitable delivery will be postponed until after delivery given patient's acute discomfort. ?? Obesity (E66.9):??. ?? labor (O60.00):??. ?? OB History History?(0,0,0,0)?No previous pregnancies history have been recorded Labs Labs Labs & Tests Antibody Screen: Negative (05/14/22) Blood Type: O Positive (05/14/22) Chlamydia Trachomatis Amplified Probe: NEGATIVE (04/01/22) Down Syndrome Age Risk FTS: Age Risk: (05/14/22) Down Syndrome Scrn Risk FTS: Screening Risk: (05/14/22) Hct: 38.3 % (05/14/22) Hemoglobinopathy Interpretation: Normal hemoglobins. (05/14/22) Hepatitis B Surface Antigen: NEGATIVE (05/14/22) Hepatitis C Ab: NEGATIVE (05/14/22) Hgb: 12.8 Gm/dL (05/14/22) HIV 4th Generation Ab-Ag Result: NEGATIVE (05/14/22) RPR Titer Result: NOT INDICATED (05/14/22) Rubella IgG Ab: POSITIVE (05/14/22) Syphilis Screen by SYED: NEGATIVE (05/14/22) Trisomy 18 Scrn Risk FTS: Screening Risk: (05/14/22) Urine Culture: Urine Culture (05/14/22) Problem List Active Active Problem List Chlamydia trachomatis infection: (Sensitive) Headache: (Medical) Obese class I: (Medical) Oligomenorrhea: (Medical) : (Obstetric) (01/13/22) Vaginitis: (Medical) well child: (Freetext) Procedure/Surgical History No qualifying data available. Home Medications No qualifying data available. 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 Regular exercise: Yes. Exercise frequency: 1-2 times/week. Exercise type: cardio., 08/02/2021 Regular exercise: No., 03/26/2017 Home/Environment Living situation: Home/Independent. Lives with: room mate., 08/02/2021 Nutrition/Health Diet: Regular. Other: less portion, no red meat., 08/02/2021 Sexual Sexually involved in last 6 months: Yes. Ever been sexually involved? Yes. Number of partners in last 6 months: 1., 08/02/2021 Sexually involved in last 6 months: Yes., 03/26/2017 Substance Abuse Use: Never., 08/02/2021 Use: Never., 03/26/2017 Tobacco Never smoker, Tobacco user in household: No., 01/26/2018 Family History Mother: Blood clot; DVT - Deep vein thrombosis of lower limb Father: Diabetes mellitus; Hypertension Other: Asthma; Cardiac disease ? 05-APR-2016 02:49:52<$>; Diabetes mellitus type II Plan No Data Found Hospital Progress note * Peter Li MD: PERFORM Event Display: Progress Note Hospital Authored Date: [id number] Patient: ??AMANDA BOUDREAUX ? Age:??21 Years?Sex:??Female?:??2000?? Subjective Pt feeling physically well. Was able to rest overnight. Reports no significant discomfort and minimal VB. She is without additional questions at this time. Physical Exam Vitals & Measurements T:??97.8?F ?? HR:??84(Monitored)?? VA:??107?? RR:??18?? BP:??126/66?? SpO2:??100%?? HT:??157.48??cm?? WT:??0.343??kg?? WT:??0.343??kg?? BMI:??36.69?? Assessment/Plan Assessment:??21yo ??now PPD#1 s/p previable delivery??@ 21+3 weeks EGA. Physically recovering appropriately. Additional hospital supports will be present today. Pt will determine if she is ready for discharge today or if she would like to wait until tomorrow. Plan will be for f/u in the office in 2 weeks. ?? Obesity (E66.9):??. ?? labor (O60.00):??. ?? OB Summary : 1 . Baby A - Weight: 0.343 kg Baby A - Date, Time of : 07/08/22 16:59:00 Baby A - Gender: Female Weight: 0.343 kg Weight: 0.343 kg EGA at Documented Date, Time: 21W 3D Weight at Delivery Baby A - Delivery Type: Vaginal Delivery Complications: None OB History History?(0,0,0,0)?No previous pregnancies history have been recorded Active Problem List Active Problem List Chlamydia trachomatis infection: (Sensitive) Headache: (Medical) Obese class II: (Medical) Oligomenorrhea: (Medical) : (Obstetric) (01/13/22) Vaginitis: (Medical) well child: (Freetext) Home Medications No qualifying data available. Medications Medications (5) Active SCHEDULED: (0) CONTINUOUS: (0) PRN: (5) Acetaminophen 325 mg Tablet (Acetaminophen Tablet) ??650 [...] ??800 mg, By Mouth, Every 8 hours Ondansetron 2mg/mL Inj (2mL Vial) (Ondansetron Inj) ??4 mg, IV Push, Every 8 hours * Guillermo BANERJEE, Peter Singh: PERFORM Event Display: Progress Note Hospital Authored Date: Patient: ??AMANDA BOUDREAUX ? Age:??21 Years?Sex:??Female?:??2000?? Subjective In to see patient. She reports feeling physically well. ?? She is ready to discuss further evaluation given findings today. Reviewed she had a delivery that was previable. Reviewed possible etiologies include but are not limited to??cervical insufficiency, infection, anomalous fetus. We discussed placental culture, gc/ct, and urine culture if able to evaluate for possible infectious causes. As she did not yet have her anatomy scan, we discussed possibility of anomalies/chromosomal abnormalities that could have increased risk of delivery. Patient and FOB are adamant they donot want any manipulation of the baby's body. The refuse autopsy or external evaluation as she looks fine . The decline any imaging studies. They do accept evaluation of the placenta and are ok with any genetics that may be done with the placenta. We briefly reviewed that with subsequent pregnancies, unless clear etiology can be determine regarding her delivery, would likely have cervical length screening and vaginal progesterone. ?? Patient, FOB, and surrounding family without any additional questions at this time. She will determine dispo tomorrow after meeting with [facility]. Physical Exam Vitals & Measurements T:??97.8?F ?? HR:??84(Monitored)?? VA:??107?? RR:??18?? BP:??126/66?? SpO2:??100%?? HT:??157.48??cm?? WT:??0.343??kg?? WT:??0.343??kg?? BMI:??36.69?? Assessment/Plan Assessment: ?? OB Summary : 1 . Baby A - Weight: 0.343 kg Baby A - Date, Time of : 07/08/22 16:59:00 Baby A - Gender: Female Weight: 0.343 kg Weight: 0.343 kg EGA at Documented Date, Time: 21W 3D Weight at Delivery Baby A - Delivery Type: Vaginal Delivery Complications: None OB History History?(0,0,0,0)?No previous pregnancies history have been recorded Active Problem List Active Problem List Chlamydia trachomatis infection: (Sensitive) Headache: (Medical) Obese class II: (Medical) Oligomenorrhea: (Medical) : (Obstetric) (01/13/22) Vaginitis: (Medical) well child: (Freetext) Home Medications No qualifying data available. Medications Medications (5) Active SCHEDULED: (0) CONTINUOUS: (0) PRN: (5) Acetaminophen 325 mg Tablet (Acetaminophen Tablet) ??650 [...] ??800 mg, By Mouth, Every 8 hours Ondansetron 2mg/mL Inj (2mL Vial) (Ondansetron Inj) ??4 mg, IV Push, Every 8 hours Note * Jordan Abarca RN: PERFORM Event Display: Discharge/Transfer Note Hospital Authored Date: [id number] Nursing Discharge Note Entered On: 07/09/2022 16:23 EST Performed On: 07/09/2022 16:22 EST by Jordan Abarca RN Nursing Discharge Note 2 Discharge Time : 07/09/2022 15:55 EST Discharge Level of Care at Discharge : Home/Intermediate/Foster Care Patient Left Unit Via : Ambulatory Patient Accompanied Off Unit with : Significant other DC Instructions Provided & Signed by Pt : Yes Patient Understands D/C Instructions : Yes Verbalized Understanding of D/C Plan By : Patient Patient Instructions Discharge Signed : Yes Did Pt have Specialty Bed or Wound Vac : No Jordan Abarca RN - 07/09/2022 16:22 EST * Gopi BANERJEE, Jeanna Kiser: PERFORM Event Display: Discharge/Transfer Note Hospital Authored Date: [id number] Patient: ??AMANDA BOUDREAUX ? Age:??21 Years?Sex:??Female?:??2000?? Admit Date Admission Date: 07/08/2022 Discharge Date 07/09/2022 OB Reason for Admission OB Reason for Admission Reason for admission: labor [facility] Course Patient is a 21 year old G1 at 21 weeks and 3 days gestation who is admitted in labor. She was found to be fully dilated on admission. She received an epidural for pain management and then delivered spontaneously.?? She was appropriately grieving and??her bleeding was well controlled.?? She choose to be discharged.?? Objective/Physical Exam on Day of Discharge Vitals & Measurements T:??97.8?F ?? HR:??84(Monitored)?? VA:??90?? RR:??16?? RR:??0?? BP:??111/72?? SpO2:??100%?? HT:??157.48??cm?? WT:??0.343??kg?? BMI:??36.69?? Assessment/Plan/Discharge Diagnosis at 21 08/26 previable delivery Delivery Summary Delivery Summary Maternal Information ??Labor Information ?Baby A ?Labor Onset Methods: ??Spontaneous ??Delivery Information ?Gestational Age at Delivery: ??21W 3D ?Anesthesia OB: ??Epidural ??07/08/22 18:55:54, Epidural ??07/08/22 16:04:35 ?Obstetrical Laceration: ??Perineum intact ?Delivery Complications: ??None ?Blood Loss(ml): ??50 mL ? Baby A ??Delivery Information ?Delivery Type: ??Vaginal ?Date, Time of : ??07/08/22 16:59:00 ? Position: ??Supine ?Foot of bed removed: ??No ?Placenta Delivery Date/Time: ??07/08/22 17:04:00 ?Placenta Delivery Method: ??Assisted ?Placenta Appearance: ??Marginal cord insertion ?Placenta to Pathology: ??Yes ??Care Team ?Attending Provider: ??Peter Li MD (Modified) ?Delivery Physician: ??Aleshia Richey DO ?oil and gas well treatment operator #1: ??Jordan Abarca RN ?oil and gas well treatment operator #2: ??Asiya Huerta RN ?? Information ? Outcome: ??Live ? Weight: ??0.343 kg ? Score 1 minute: ??2 ? Score 5 minute: ??1 ? Score 10 minute: ??0 ?Transferred To: ??Other: [facility] ?Umbilical Cord Description: ??3 vessel cord ? Complications: ??None ?Gender: ??Female ? Immunizations during Hospitalization Vaccine Date Status [id number] (COVID-19) mRNA BNT-162b2 vac 03/26/2021 Recorded SARS-CoV-2 (COVID-19) mRNA BNT-162b2 vac 03/05/2021 Recorded Meningococcal Conjugate Vaccine 08/16/2019 Given 31420-930-77 influenza virus vaccine, inactivated 08/16/2019 Given [id number] Hepatitis A Adult Vaccine 08/16/2019 Recorded influenza virus vaccine, inactivated 04/28/2016 Given Human Papillomavirus Vaccine 02/21/2015 Given gardasil 9 Meningococcal Conjugate Vaccine 02/08/2014 Given VIS GIVEN 04/04/11 Human Papillomavirus Vaccine 02/08/2014 Given VIS GIVEN 11/05/12 tetanus/diphtheria/pertussis, acel(Tdap) 09/03/2012 Given [...] Vaccine (old term) 2000 Given Feeding Method No Results * Jordan Abarca RN: PERFORM Event Display: Patient Education/Instruction Authored Date: [id number] Inpatient Adult Discharge Instructions [address] [address] Name: AMANDA BOUDREAUX : 2000 Visit: 07/08/2022 15:09:00 Current Date: 07/09/2022 14:51 Account: [id number] Inpatient Adult Discharge Instructions We would like [...] and their families. Surveys are administered by [employer] ?? If further treatment with your primary care physician or another doctor is recommended, it is important for you to keep the appointment. Call your primary care physician or return to the Emergency Department immediately if your condition worsens, fails to improve, or new symptoms develop. If you need to find a doctor, you can call [facility] [email or web address] for a referral at [phone] or toll free at [phone] or log in to [email or web address].. ?? You can view and manage your care through the patient portal or by using a health care kenan of your choosing. [employer] is a website that allows you to securely view your medical information including your hospital discharge summary, office visit summaries, medications and follow-up visits. You can also request appointments, renew medications, and request access to your medical information using a health care kenan of your choosing, or just ask a question. You can enroll at [email or web address] or register during your next office visit. You have been discharged from [facility], Patient Care Unit: [facility]. If you have any questions regarding these instructions after you leave, please call us and we will be happy to assist you. [facility] Your Care Team Attending Physician Guillermo BANERJEE, Peter Singh Discharging Providers Gopi BANERJEE, Jeanna Kiser Reason for Admission labor Your Diagnosis labor Obesity Tests Performed Below is a partial list of the tests performed during your hospitalization. You may have had other tests and procedures not included in this list. Please discuss all test results with your provider. Amphetamine Urine with Confirmation Barbiturate Urine with Confirmation Benzodiazepine Urine with Confirmation Buprenorphine Screen w/Confirm, Urine CBC Cocaine Urine with Confirmation COVID-19 (2019 Novel Coronavirus) PCR?-- Results Pending -- Ethanol Urine Fentanyl Screen With Confirmation, Urine Methadone Urine with Confirmation Opiates Urine with Confirmation Oxycodone Urine with Confirmation PCP Urine with Confirmation Type and Screen ? You will be contacted within 72 hours with your results. Primary Care Provider Zachary BANERJEE, [facility] Advance Directive Health Care Proxy on File Yes - Health Care Proxy No qualifying data available. Discharge Vitals Temperature: 97.8 DegF Height: 157.48 cm Pulse Rate: 90 bpm Weight: 91 kg Respiratory Rate:??0 br/min??Low Body Mass Index:??36.69 kg/m2??Critical Respiratory Rate: 16 br/min Body surface area: 2 Systolic Blood Pressure: 111 mm Hg ?? Diastolic Blood Pressure: 72 mm Hg ?? Oxygen Saturation: 100 % ?? Studies Pending All tests and labs ordered during this hospital stay have been completed unless listed below. Please discuss all pending results with your provider listed above in these instructions. ?? CBC COVID-19 (2019 Novel Coronavirus) PCR Placenta Culture w/ Gram Smear Type and Screen, Use Hold Lavender Urine Culture What to do next Instructions From Your Doctor Discharge Orders Instructions from your Care Team Discharge Care Instructions?? Please take a few moments to read through these helpful instructions before you leave the hospital.Your nurse will be glad to answer any questions you may have. You may also phone our nurses stations if you have further questions. [facility]: First Floor ([phone]), Second Floor ([phone]).?? Please call your provider if you have any questions or concerns before your next appointment. ?? Instructions: Activity: For the next 2 weeks at home??-??no heavy lifting, avoid unnecessary stair climbing, and no driving(especially if you are taking medicine that may make you sleepy or feel that you are sleep deprived).?? Personal Hygiene:? For the next 4-6 weeks - no tampons, no douches, no sexual intercourse. Use your barbara bottle to rinse your perineum until your vaginal flow stops. If you have stitches in your bottom, they generally dissolve within 7-10 days. Apply Tucks/witch william pads until your soreness subsides. Use your bathroom at home every 3 to 4 hours, rinse, and change your pads. Warm showers feel great on achy muscles, sore backs and sore bottoms.? Incision Care Following Section: You may shower as directed by your doctor or fabric lay out worker. Pat your incision dry with a clean towel. Youwill not need a bandage after the first day. Call your doctor or fabric lay out worker with any signs of infection such as a hard, hot swollen tender incision, especially if the skin around the incision looks pink or red. Yellow drainage with an odor may also be a sign of infection to report. Call your doctor or fabric lay out worker if the incision begins to separate. If you have steri-strips on the incision, they will likely fall off in the first week. If they havenot fallen off by 10 days after delivery, you may remove them. Exercise: Walking is the best form of exercise. Wait until your follow up appointment with your provider in 4-6 weeks before engaging in more strenuous activity. Diet: Drink plenty of fluids to avoid constipation and to help support your recovery. Eat plenty of iron rich foods such as red meat, iron fortified cereals like Total and Cream of Wheat, raisins, prunes, greens and spinach. These will help to build your blood count back up as all women lose some blood after delivery. Also add foods rich in Vitamin C such as strawberries, oranges, papayas, kale and lehman peppers. If you were prescribed iron supplements such as ferrous sulfate, it is important to continue these until your doctor or fabric lay out worker tells you to stop. Dealing with and Breast Care: Your first days and weeks at home without your baby in your arms will be extremely difficult. One of the most challenging times for many bereaved mothers is when their milk comes in. In the past, many mothers have been unprepared for how to cope during this time.??Engorgement may occur within the first week after delivery. Your breasts may become hard and very tender. A cool compress of cleaned raw green cabbage leaves applied to the breast and changed as leaves wilt has been proven helpful formany women. Ice packs or frozen bags of peas also work nicely to ease the discomfort. The soreness will only last a couple of days. Keep your back turned to the water while showering to decrease breast stimulation. Wear a snug fitting bra such as a sports bra. Please refer to the handout: After Loss for more information.Call [facility]???s Consultation Service at [phone], press 1 to schedule an outpatient appointment or press 3 and a commercial solar sales consultant will return your call that day or the next if you call after 3pm. Control: Your doctor or fabric lay out worker will discuss control methods with you when you are discharged from thespital or at your checkup.? Pain Management: Cramping after is common If you experience painful cramps and have no allergies to acetaminophen (Tylenol) or ibuprofen (Motrin), you may continue to take these medications as you did in the hospital. Ibuprofen is also helpful with back aches following epidurals, perineal pain following a vaginal delivery, and moderate incisional pain after a section or a tubal ligation.?? If you experience gas distention, especially after surgery, you may take an [id number] medication called simethicone. Take these chewable tablets 4 times a day as needed and directed on the package. Keep moving. Walking or rocking in a chair, will help to move the gas along. Carlos tea made with heated carlos raina (instead of water) and a tea bag, stirred to dissolve carbonation (bubbles) ramakrishna helpful drink to soothe a gassy stomach. Physical Warning Signs of a Problem to Notify Your Doctor or Cell Maker of: Heavy vaginal bleeding?which is soaking a pad every hour with bright red blood. Passing blood clots the size of an egg or larger. An incision that is not healing. A temperature greater than or equal to 100.4 especially if accompanied by any of the following symptoms?painful, frequent urination; extreme back or flank pain; lower belly pain with a foul smell to your vaginal flow; a red hard hot area on your breast.?? Severe headache that does not go away after taking acetaminophen or ibuprofen.?? A headache that changes your vision, including seeing spots or blurring. Right sided upper abdominal pain along the rib cage area. Pain in your legs that is warm and tender to the touch. ?? Grieving and??Coping:?It can be very hard to go through labor, yet not have a baby to take home. Counseling is important for all parents coping with a stillbirth. It can help you understand your feelings. It can help you begin the work of grieving. Ask your healthcare provider to refer you to a counselor who has experience in loss. Your healthcare team will refer you to [employer], a local non- profit organization that assists families both in the hospital and after they go home. (Please refer to the separate [employer] handout.) Losing a child through miscarriage or stillbirth is a painful experience. Grief is a normal reaction to this loss. You may not want to believe the loss is real. You may feel numb, in shock, or angry.You may even think you could have somehow stopped the loss. At first, it may feel impossible to getthrough each day. But you will feel better with time, as you let yourself grieve. ?? Accepting Support:?? You will need support while you are grieving. That support can come from family, friends, and neighbors. A grief support group can help. And this is the time many people reach out to their spiritual or anglican community. During this process: ?Stay in touch with family and friends, even if it???s hard to talk. ?Stick to a daily routine that keeps you connected to friends and family. ?Tell people how they can help. It can be as simple as bringing you a meal or walking your dog. ?Meet with your natali leader, a counselor or therapist, or your own healthcare provider. ?Consider joining a grief support group. Ask your healthcare provider how to find one in your area. Support groups can help you cope with your feelings and talk with others who have had a similar experience. These people can share what has helped them through their toughest moments. A support group can also help you with follow-up care. Grief can come back years later. It may be triggered by amemory or another . Follow-up care can help you manage long-lasting effects of grief over months or years. For other types of support, search online for? loss support?to find resources likethese: ?Share: and Loss Support at www.nationalshare.org ? Loss Support Program at www.pregnancyloss.org ?? Emotional and physical changes: Grief is complex. The grieving process varies from person to person. It can cause a lot of emotional and mental changes, such as: ?Feeling sad, depressed, hopeless, or angry ?Feeling worried, guilty, anxious, angry, or afraid ?Trouble with memory and thinking ?Not wanting to talk with or be around other people ?Loss of interest in things you used to enjoy ?Loss of interest in your life and work Grief can also cause physical changes, such as: ?Loss of appetite or overeating ?Weight loss or gain ?Tiredness ?Trouble getting to sleep or staying asleep ?Headaches, upset stomach, or hair loss ?Sense of trouble breathing ?Trembling or shakiness ?? When to call the healthcare provider: ?There's no normal length of time to grieve. But if you feel unable to function, you may need extra help. Seeking help is not a sign of weakness. It means that you are taking charge of your recovery. Call your healthcare provider if you: ?Can???t eat or sleep for several days in a row ?Have thoughts of harming yourself or others ?Can???t work or take care of yourself or others as needed ?Feel out of control with extreme sadness, fear, or anger ?Family or friends have asked you to get help ?Gain or lose a lot of weight ?Feel your grief is getting worse, or not getting any better ?? Caring for yourself: While you are grieving, you need to take care of yourself. During this time: ?Take care of your body. Eat a healthy diet and get physical activity. Get as much sleep as you can. ?Don't use alcohol or drugs to numb your feelings. This can slow the grieving process. ?Don't spend a lot of time alone. Have daily contact with family or friends. Talk about your loss with those closest to you. ?Take time for yourself. Make a point to do things that you enjoy. ?If you have been prescribed a medicine to help with your symptoms, take it only as directed. Don't use it with alcohol. ?Try to avoid making major decisions. ?? Learning more about the cause of : Autopsy or special genetic and chromosomal testing may have been done. Results can be shared at a meeting with the healthcare provider several weeks afterward. Autopsy does not prevent you from beingable to see or hold the baby. It can be done before a .? Depression: ? Signs may include??-??weepiness, difficulty focusing, weight loss with no appetite, exhaustion, feeling overwhelmed or anxious, feelings of despair, or thoughts of harming yourself. These symptoms are important and should be discussed with your doctor or fabric lay out worker. depression may develop over a period of time and needs prompt medical attention. Do not suffer in silence. In??your book?When Your Baby Dies?? ,??there is a screening tool used to identify women at risk, called the [place] Scale which you??may??have taken in the office prior to delivery and again during your hospitalstay. Three to four weeks after your delivery, and before your check with your provider, take this test and share your results with your provider. Be sure to mention any score of 10 or more.? Personal Safety:? If you have thoughts of suicide or of harming yourself or others, call or text??988. You will be connected to trained crisis counselors at the National Suicide Prevention Lifeline. An online chat option is also available at??www.suicidepreventionlifeline.org. You can also call Lifeline at 245-625-UR IU (705-189-7709). [employer] is free and available 12/01. Every person has the right to feel safe at home and live free from physical or emotional harm. If you have suffered mental or physical abuse at home, you are not alone. There is help. Please call [facility] or the [employer] ARCH Program at 329-750-3866. ?? Moving forward: ? At some point, you???ll begin thinking about the future. You???ll look ahead and make plans. To help yourself reach this point, try to do one thing each day to join in life. Keep at it, even if it feels strange at first. Your life may never be exactly the same. But one day you???ll find you???re living life fully again. ?? You Need to Schedule the Following Appointments Follow Up with??[facility] [phone] When??In 2 weeks 07/23/2022 EST Why: The office may call you with an appointment, If not please call the office to book an appointment. Discharge Medications AMANDA BOUDREAUX :2000 Visit Date:07/08/2022 Medications: Please continue your medications until treatment is completed or stopped by your provider. Medications not listed below should be discontinued. Discuss any questions related to medications with your provider. Test Results Below is a partial list of the most recent Laboratory test results done prior to this discharge. You may have had other tests and procedures not included in this list. Please discuss all test resultswith your provider. Amphetamine Urine with Confirmation (07/08/2022) ???Amphetamine Screen, Urine - NONE DETECTED Barbiturate Urine with Confirmation (07/08/2022) ???Barbiturate Screen, Urine - NONE DETECTED Benzodiazepine Urine with Confirmation (07/08/2022) ???Benzodiazepine Screen, Urine - NONE DETECTED Buprenorphine Screen w/Confirm, Urine (07/08/2022) ???Buprenorphine Screen with Reflex, Urine - NONE DETECTED CBC (07/08/2022) ???WBC - 27.3 k/mm3???RBC - 3.97 m/mm3???Hgb - 12.3 Gm/dL???Hct - 36.3 %???MCV - 91.4 femtoliters???MCH - 31.0 pg???MCHC - 33.9 g/dL???Platelet Count - 371 k/mm3???RDW-SD - 42.9 femtoliters???MPV - 8.4 femtoliters???Nucleated RBC (Automated) - 0.0 #/100 WBC'S???Abs. NRBC - 0.0 k/mm3 Cocaine Urine with Confirmation (07/08/2022) ???Cocaine Metabolite Screen, Urine - NONE DETECTED Ethanol Urine (07/08/2022) ???Urine Alcohol - NONE DETECTED Fentanyl Screen With Confirmation, Urine (07/08/2022) ???Fentanyl Screen, Urine Result - NONE DETECTED Methadone Urine with Confirmation (07/08/2022) ???Methadone Screen, Urine - NONE DETECTED Opiates Urine with Confirmation (07/08/2022) ???Opiate Screen, Urine - NONE DETECTED Oxycodone Urine with Confirmation (07/08/2022) ???Oxycodone Screen, Urine - NONE DETECTED PCP Urine with Confirmation (07/08/2022) ???PCP Screen, Urine - NONE DETECTED Type and Screen (07/08/2022) ???Blood Type - O Positive???Antibody Screen - Negative Allergies (NKA means No Known Allergies) NKA Problems Active Problems??(7) Chlamydia trachomatis infection?? Headache?? Obese class II?? Oligomenorrhea? Vaginitis?? well child?? Education Materials Below is the list of Educational Leaflet Providered with your Discharge Instructions. Valuables and Belongings I fully understand and agree that [facility] accepts no responsibility for all my personal [...] home. ?? No Valuables/Belongings: No valuables/belongings present Date for Pt to Sign Valuables/Belongings: 07/08/22 19:19:00 ?? Other Discharge Information ? Pulmonary Rehab Status?? Pulmonary Rehab Discharge Status?? Respiratory Rate:??0 br/min??Low Respiratory Rate: 16 br/min ? Common Emergency Awareness Tips IS [...] are strongly encouraged to quit. Please call [facility] e[employer] Link at [phone] or [phone] ([phone]) or log in to [email or web address] for referrals to smoking cessation programs. ?? The National Suicide Prevention Hotline is available 12/01 if you or someone you know needs to find a reason to keep living. By calling 9-877-922ConferenceEdge (6516) you'll be connected to a skilled, trained counselor at a crisis center in your area. INPATIENT DISCHARGE INSTRUCTIONS SIGNATURE PAGE KANIKA AMANDA Location:[facility] Registration Date and Time:07/08/2022 15:09 [facility] Primary Care Physician: Zachary BANERJEE, [facility], I AMANDA BOUDREAUX, have received the above patient education materials/instructions and have verbalized understanding. If ambulance or transport services are being used I further acknowledge being given a choice of service. ?? If you need to contact me, please call me at this number: . Patient/Credit Union Field Examiner Name: Patient/Credit Union Field Examiner Signature: Relationship to Patient: Witness Name/Signature: Date: * Tevin Jordan OBREGON: PERFORM, SIGN, VERIFY Event Display: Patient Education Handout Authored Date: [id number] Patient Care team information Care Team Personnel Name: Megan Sharma MD Position: [facility] Resident Member Role: PCP Address: Address: [address] [place] [address] Name: Guillermo BANERJEE, Peter Singh Position: [facility] PLASTIC MOLDING OPERATOR MD Member Role: Lifetime PLASTIC MOLDING OPERATOR Physician Address: Address: [address] [place] [address] [facility] Care Team Related Persons Name: AMANDA HANEY Address: home [address] [place] [address] Name: HECTOR GILLILAND Address: home [address] [place] [address] Name: AMANDA BOUDREAUX GIRL Address: [address] Address: home [address] [place] [address]
--- OUTSIDE RECORDS SUMMARY | 2023-07-07 02:53 | XMS_ITS | Continuity of Care Document ---
Author Name Unknown Organization [facility] Address [address] [place] [address]- Care Team Providers Care Vice President Consulting Services Name Role Phone Roz Couch DO Primary Care Physician [facility]20 - 07/07/20 [facility] [address] [place] [address]- Allergies, Adverse Reactions, Alerts Substance Reaction Severity [...] Vaccine (old term) 99 Given 1Result Comment: 05732-506-43 2Result Comment: wrong dose ordered 3Result Comment: 07316-327-87 4Result Comment: VIS GIVEN 04/04/11 5Result Comment: 18460-821-03 6Result Comment: gardasil 9 7Result Comment: VIS GIVEN 11/05/12 8Result Comment: entered in error Medications Diflucan 150 mg oral tablet 1 tablet = 150 mg, By Mouth, Once, # 1 tablet, 5 Refills, Soft Stop, 11/16/19 13:58:00 EDT, Tablet,[facility]/pharmacy #1972, 162.2, cm, 11/16/19 13:24:00 EDT, Height, 85.2, kg, 11/16/19 13:24:00 EDT, Dry Weight Start Date: 11/16/19 Status: Ordered Provera 10 mg oral tablet 10 mg, 1, tablet, By Mouth, Daily, take 1 per day for 10 days, # 30 tablet, Refills 3, Tot. Refills3, Maintenance, 06/19/20 13:38:00 EST, Route to Pharmacy Electronically, [facility]/pharmacy #1972, Partial fill upon patient request if the prescription is f... Start Date: 06/19/20 Status: Ordered Provera 10 mg oral tablet 10 mg, 1, tablet, By Mouth, Daily, take 1 daily for 10 days- continue after period if bleeding persists, # 30 tablet, Refills 3, Tot. Refills 3, Maintenance, 06/19/20 13:42:00 EST, Route to Pharmacy Electronically, [facility]/pharmacy #1972, Partial fill upo... Start Date: 06/19/20 Status: Ordered SUMAtriptan 100 mg oral tablet 1 tablet = 100 mg, By Mouth, Once, PRN as needed for migraine headache, may repeat dose after 2 hours up to a maximum of 200 mg in 24 hours, # 18 tablet, 1 Refills, Soft Stop, 08/16/19 17:17:00 EST, Tablet, [facility]/pharmacy #1972, 158.4, cm, 08/16/19 16:5... Start Date: 08/16/19 Status: Ordered Xulane 150 mcg-35 mcg/24 hr transdermal film, extended release 1 patch, Topically, Every week, # 12 each, 5 Refills, Maintenance, 11/16/19 13:58:00 EDT, [facility]/pharmacy #1972, 1 patch Topically Every [...]
--- OUTSIDE RECORDS SUMMARY | 2023-07-07 02:53 | XMS_ITS | Continuity of Care Document ---
Author Name Unknown Organization [facility] Address [address] [place] [address]- Care Team Providers Care Physical Science Aide Name Role Phone Roz Couch DO Primary Care Physician [facility] Date(s): 11/05/19 - 11/05/[address] [address]- [facility] Encounter Diagnosis Corneal abrasion(Final) - 11/05/19 Discharge Disposition: A-D/C Home Attending Physician: Sammy Malik MD Admitting Physician: Sammy Malik MD Referring Physician: Not on Staff, Referring MD Allergies, Adverse Reactions, Alerts Substance Reaction [...] Vaccine (old term) 99 Given 1Result Comment: 91995-439-60 2Result Comment: wrong dose ordered 3Result Comment: 12145-225-46 4Result Comment: VIS GIVEN 04/04/11 5Result Comment: 60868-697-71 6Result Comment: gardasil 9 7Result Comment: VIS GIVEN 11/05/12 8Result Comment: entered in error Medications Diflucan 150 mg oral tablet 1 tablet = 150 mg, By Mouth, Once, # 1 tablet, 5 Refills, Soft Stop, 08/16/19 17:22:00 EST, Tablet,[facility]/pharm[facility] #1972, 158.4, cm, 08/16/19 16:54:00 EST, Height, [...] recent to oldest [Reference Range]: 1 2 Oxygen Saturation [94-100 %] 99 % (11/05/19 5:37 PM) 97 % (11/05/19 3:57 PM) Pulse Rate [55-90 bpm] 80 bpm (11/05/19 5:37 PM) 73 bpm (11/05/19 3:57 PM) Blood Pressure [90-138/55-84 mm Hg] 122/ 74mm Hg (11/05/19 5:37 PM) 116/76mm Hg (11/05/19 3:57 PM) Respiratory Rate [16-30 br/min] 18 br/mi n (11/05/19 5:37 PM) 16 br/min (11/05/19 3:57 PM) Temperature [96.8-100.4 DegF] 98.7 DegF (11/05/19 5:37 PM) 98 DegF (11/05/19 3:57 PM) Mode of Delivery (Oxygen) Room air (11/05/19 5:37 PM) Room air (11/05/19 3:57 PM) Blood pressure sites Arm, left (11/05/19 5:37 PM) Arm, right (11/05/19 3:57 PM) Temperature Route Oral (11/05/19 5:37 PM) Oral (11/05/19 3:57 PM) Social History Social History Type Response Smoking Status Never smoker; Tobacc o user in household: No entered on: 01/26/18 Sex
--- OUTSIDE RECORDS SUMMARY | 2023-07-07 02:53 | XMS_ITS | Continuity of Care Document ---
Author Name Unknown Organization [facility] Address [address] [place] [address]- Care Team Providers Care Inspector Watch Parts Name Role Phone Not on Staff, PCP Primary Care Physician Unavail able [facility]): 03/05/23 - 04/04/[address] [address] Allergies, Adverse Reactions, Alerts No [...] Vaccine (old term) 99 Given 1Result Comment: 35508-626-83 2Result Comment: 90260-788-14 3Result Comment: VIS GIVEN 04/04/11 4Result Comment: [...] Personnel Name: Not on Staff, PCP Position: [facility] Physician (General Medicine) Member Role: PCP Name: Peter Li MD Position: [facility] VP STRATEGIC PARTNERSHIPS MD Member Role: Lifetime VP STRATEGIC PARTNERSHIPS Physician Address: Address: [address] [place] [address] [facility], [place] [address]- Care Team Related Persons Name: CAN ELMORE Address: [address] Address: home [address] [place] [address] Name: AMANDA HANEY Address: [address] [place] [address] Name: HECTOR GILLILAND Address: home [address] [place] [address] Name: LAYTON COHN Address: [place] [address]
--- OUTSIDE RECORDS SUMMARY | 2023-07-07 02:53 | XMS_ITS | Continuity of Care Document ---
Author Name Unknown Organization [facility] Address [address] [place] [address] [address] [place] [address]- Care Team Providers Care Assistant Bookkeeper Name Role Phone Jacobo Angel MD Primary Care Physician [facility] Date(s): 12/03/22 - 01/02/[address] [place] [address]- Attending Physician: Howard Ledbetter Admitting Physician: AdmtrHoward Referring Physician: Admtr, Ar8 Allergies, Adverse Reactions, Alerts No Known Allergies [...] Vaccine (old term) 99 Given 1Result Comment: 93984-046-61 2Result Comment: 27692-351-44 3Result Comment: wrong dose ordered 4Result Comment: 19244-367-91 5Result Comment: VIS GIVEN 04/04/11 6Result Comment: [...] Team Personnel Name: Jacobo Angel MD Position: [facility] Resident Member Role: PCP Address: Address: [address] [place] [address] [place] [address]- Name: Peter Li MD Position: [facility] AFRICANA STUDIES PROFESSOR MD Member Role: Lifetime AFRICANA STUDIES PROFESSOR Physician Address: Address: [address] [place] [address] [facility], [address] Care Team Related Persons Name: CAN ELMORE Address: [address] Address: home [address] [place] [address] Name: AMANDA HANEY Address: home [address] [place] [address] Name: HECTOR GILLILAND Address: home [address] [place] [address] Name: LAYTON COHN Address: [place] [address]
--- OUTSIDE RECORDS SUMMARY | 2023-07-07 02:53 | XMS_ITS | Continuity of Care Document ---
Author Name Unknown Organization [facility] Address [address] [place] [address]- Care Team Providers Care Reverse Unit Operator Fisherman Name Role Phone Jacobo Angel MD Primary Care Physician [phone] [facility](s): 11/04/22 - 01/01/[address] [address]- Attending Physician: Argentina Oh CNM Admitting Physician: Argentina Oh CNM Allergies, Adverse Reactions, Alerts No Known Allergies [...] Vaccine (old term) 99 Given 1Result Comment: 21862-295-82 2Result Comment: 72752-045-41 3Result Comment: wrong dose ordered 4Result Comment: 63135-480-54 5Result Comment: VIS GIVEN 04/04/11 6Result Comment: [...] Team Personnel Name: Jacobo Angel MD Position: [facility] Resident Member Role: PCP Address: Address: [address] [place] [address]- Name: Peter Li MD Position: [facility] DOCUMENT PREPARATION SPECIALIST MD Member Role: Lifetime DOCUMENT PREPARATION SPECIALIST Physician Address: Address: [address] [place] [address] [facility], [address] Care Team Related Persons Name: CAN ELMORE Address: [address] Address: home [address] [place] [address] Name: AMANDA HANEY Address: home [address] [place] [address] Name: HECTOR GILLILAND Address: home [address] [place] [address] Name: LAYTON COHN Address: [place] [address]
--- OUTSIDE RECORDS SUMMARY | 2023-07-07 02:53 | XMS_ITS | Continuity of Care Document ---
Author Name Unknown Organization [facility] Address [address] [place] [address]- Care Team Providers Care Ornamental Ironworker Helper Name Role Phone Jacobo Angel MD Primary Care Physician [facility]s): 12/17/22 - 01/16/[address] [address]- Allergies, Adverse Reactions, Alerts No Known Allergies [...] Vaccine (old term) 99 Given 1Result Comment: 01615-360-28 2Result Comment: 05776-458-22 3Result Comment: wrong dose ordered 4Result Comment: 27701-036-59 5Result Comment: VIS GIVEN 04/04/11 6Result Comment: [...] Team Personnel Name: Jacobo Angel MD Position: [facility] Resident Member Role: PCP Address: Address: [address] [place] [address] [place] [address]- Name: Peter Li MD Position: [facility] LINUX ARCHITECT MD Member Role: Lifetime LINUX ARCHITECT Physician Address: Address: [address] [place] [address] [facility], [place] [address]- Care Team Related Persons Name: CAN ELMORE Address: [address] Address: home [address] [place] [address] [place] Name: AMANDA HANEY Address: home [address] [place] [address] Name: HECTOR GILLILAND Address: home [address] [place] [address] Name: LAYTON COHN Address: [place] [address]
--- OUTSIDE RECORDS SUMMARY | 2023-07-07 02:54 | XMS_ITS | Continuity of Care Document ---
Author Name Unknown Organization [facility] ter Address [address] [place] [address]- Care Team Providers Care Convolute Tube Winder Name Role Phone Zachary BANERJEE, [facility] Primary Care Physician Encounter [facility] [place] Date(s): 07/19/22 - 07/19/[address] [address]- Encounter Diagnosis Epigastric pain(Final) - 07/19/22 Discharge Disposition: A-D/C Home Attending Physician: Leonidas Cheung MD Admitting Physician: Leonidas Cheung MD Referring Physician: Not on Staff, Referring MD Allergies, Adverse Reactions, Alerts No Known [...] Vaccine (old term) 99 Given 1Result Comment: 19136-537-04 2Result Comment: wrong dose ordered 3Result Comment: 32352-827-67 4Result Comment: VIS GIVEN 04/04/11 5Result Comment: 57535-561-60 6Result Comment: gardasil 9 7Result Comment: VIS GIVEN 11/05/12 8Result Comment: entered in error Problem List Condition Confirmation Course Effective Dates Status Health St atus Informant Headache Confirmed Active Obese class II Confirmed Active Oligomenorrhea Confirmed Active Vaginitis Confirmed Active Results Radiology Reports * Exam Date Time Procedure Performing Provider Status 07/19/22 8:25 PM US RUQ Yesi Parra; Auth (Verif ied) Notes: (US RUQ) Reason For Exam: Abdominal Pain;Other: RESULT: US RUQ US RUQ HISTORY: Abdominal pain. COMPARISON: None. FINDINGS: Liver: Mild diffuse echogenic liver parenchyma. Smooth hepatic contour. Main portal vein patent with normal hepatopetal direction of flow. Gallbladder: Thin smooth echogenic line, subsequent hypoechoic line, then hyperechogenic line followed by posterior acoustic shadowing in the gallbladder fossa, likely well echo shadow sign. NegativeMurphy sign. No pericholecystic fluid, although gallbladder fossa is not completely visualized due to posterior acoustic shadowing. Biliary Tree: No intrahepatic or extrahepatic bile duct dilation is identified. Common duct measures: 0.2 cm. Pancreas: No abnormality in the visualized portions of the pancreas. Right kidney: 11.0 cm in length. Normal parenchymal echotexture and thickness. No hydronephrosis, stone or mass. IMPRESSION: Wall echo shadow sign consistent with a large gallstone or extensive cholelithiasis. No definite evidence of acute cholecystitis. Mild diffuse echogenic liver could represent underlying hepatocellular disease or more commonly hepatic steatosis. I have personally reviewed the images and I agree with this report. WSN: [id number] Ordering Physician: Leonidas Cheung Dictated By: Rajat Mattson MD Dictated Date/Time: 07/19/22 8:40 pm Reviewed By: Jaya Frye MD Signed By: Jaya Frye MD Signed Date/Time: 07/19/22 8:45 pm Transcribed By: TATE Transcribed Date/Time: 07/19/22 8:35 pm Vital Signs Most recent to oldest [Reference Range]: 1 2 3 Oxygen Saturation [94-100 %] 100 % (07/19/22 8:59 PM) 100 % (07/19/22 5:25 PM) 100 % (07/19/22 5:17 PM) Pulse Rate [55-90 bpm] 63 bpm (07/19/22 8:59 PM) 76 bpm (07/19/22 5:25 PM) 68 bpm (07/19/22 5:17 PM) Blood Pressure [90-138/55-84 mm Hg] 111/76mm Hg (07/19/22 8:59 PM) 106/67mm Hg (07/19/22 5:25 PM) 106/67mm Hg (07/19/22 5:17 PM) Respiratory Rate [16-30 br/min] 20 br/min (07/19/22 8:59 PM) 16 br/min (07/19/22 5:25 PM) 18 br/min (07/19/22 5:17 PM) Temperature [96.8-100.4 DegF] 98.2 DegF (07/19/22 8:59 PM) 98 DegF (07/19/22 5:17 PM) Mode of Delivery (Oxygen) Room air (07/19/22 8:59 PM) Room air (07/19/22 5:25 PM) Room air (07/19/22 5:17 PM) Blood pressure sites Arm, left (07/19/22 8:59 PM) Arm, right (07/19/22 5:17 PM) Temperature Route Oral (07/19/22 8:59 PM) Oral (07/19/22 5:17 PM) Social History Social History Type Response Smoking Status Never smoker; Tobacc o user in household: No entered on: 01/26/18 Sex Note * Skye BANERJEE, Leonidas Delgado: PERFORM Event Display: Patient Education Leaflets Authored Date: Gallstones??with Biliary Colic ?? [id number] Gallstones??with Biliary Colic Your abdominal pain??is from irritation and spasm of the gallbladder.??This is called biliary colic.??The gallbladder is a small sac under the liver that stores and releases a bile. Bile is a fluid made in the liver that helps your body digest fat.??Crystals may form stones inside the gallbladder (gallstones). Gallstones can cause the gallbladder to spasm. If they block the duct out of the gallbladder, they??can cause pain and even an infection.?? A number of things increase the risk of having gallstones: ??? Being female ??? Being severely overweight (obese) ??? Older age ??? Losing or gaining weight quickly ??? Eating a high-calorie diet ??? Being ??? Taking hormone therapy ??? Having diabetes Home care ??? Rest in bed. ??? Drink only clear liquids until you feel better. ??? You may have been prescribed medicine for pain or nausea. Take these as directed. ??? Fat in your diet makes the gallbladder contract and may cause increased pain. Don't eat foods that are high in fat such as full-fat dairy, fried foods, and fatty meats for at least 2 days. ??? If you are overweight, talk with yourhealthcare provider about losing weight. ?? Follow-up care Follow up with your healthcare provider or as advised. You may have another bout of pain from your gallstones??at some point.??Removal of the gallbladder is an option to prevent this. Talk with your healthcare provider about your treatment options. ?? When to seek medical advice Call your healthcare provider if any of the following occur: ??? Pain gets worse or lasts for longer than 6 hours ??? Pain moves to the right lower belly ??? Repeated vomiting ??? Swollen belly ??? Fever of 100.4??F (38??C) or higher, or as directed by your healthcare provider ??? Very dark urine, light colored stools, or yellow color of the skin or eyes ??? Chest, arm, back, neck, or jaw pain ??? Symptoms get worse or you have new symptoms ?? Last Reviewed Date: 2021 ?? 6536-1931 The [employer]. All rights reserved. This information is not intended as a substitute for professional medical care. Always follow your healthcare professional's instructions. ?? * BHSPowerscribe , CIS S: TRANSCRIBE Uday BANERJEE, Jaya: VERIFY Srinivasan BANERJEE, Rajat L: SIGN Event Display: Result: Authored Date: [id number] US RUQ HISTORY: Abdominal pain. COMPARISON: None. FINDINGS: Liver: Mild diffuse echogenic liver parenchyma. Smooth hepatic contour. Main portal vein patent with normal hepatopetal direction of flow. Gallbladder: Thin smooth echogenic line, subsequent hypoechoic line, then hyperechogenic line followed by posterior acoustic shadowing in the gallbladder fossa, likely well echo shadow sign. NegativeMurphy sign. No pericholecystic fluid, although gallbladder fossa is not completely visualized due to posterior acoustic shadowing. Biliary Tree: No intrahepatic or extrahepatic bile duct dilation is identified. Common duct measures: 0.2 cm. Pancreas: No abnormality in the visualized portions of the pancreas. Right kidney: 11.0 cm in length. Normal parenchymal echotexture and thickness. No hydronephrosis, stone or mass. IMPRESSION: Wall echo shadow sign consistent with a large gallstone or extensive cholelithiasis. No definite evidence of acute cholecystitis. Mild diffuse echogenic liver could represent underlying hepatocellular disease or more commonly hepatic steatosis. I have personally reviewed the images and I agree with this report. WSN: [id number] Ordering Physician: Leonidas Cheung Dictated By: Rajat Mattson MD Dictated Date/Time: 07/19/22 8:40 pm Reviewed By: Jaya Frye MD Signed By: Jaya Frye MD Signed Date/Time: 07/19/22 8:45 pm Transcribed By: TATE Transcribed Date/Time: 07/19/22 8:35 pm Patient Care team information Care Team Personnel Name: Megan Sharma MD Position: [facility] Resident Member Role: PCP Address: Address: [address] [place] [address]- Name: Peter Li MD Position: [facility] WRAPPER HAND MD Member Role: Lifetime WRAPPER HAND Physician Address: Address: [address] [place] [address] [address]- Name: Leonidas Cheung MD Position: [facility] ED Medicine MD Member Role: Admitting Physician Address: Address: [address] [place] [address] Emergency Medicine [place], [place] [address] Name: Elijah Taveras Position: [facility] ED TA [facility] Member Role: Traffic Assistant Name: Graciela Osborne RN Position: [facility] ED RN W/OE and Tasks Member Role: Patient Care Provider Care Team Related Persons Name: CAN ELMORE Address: [address] Address: home [address] [place] [address] [place] Name: AMANDA HANEY Address: home [address] [place] [address] Name: HECTOR GILLILAND Address: home [address] [place] [address]
--- OUTSIDE RECORDS SUMMARY | 2023-07-07 02:54 | XMS_ITS | Continuity of Care Document ---
Author Name Unknown Organization [facility] Address [address] [place] [address]- Care Team Providers Care Insurance Business Analyst Name Role Phone Zachary BANERJEE, Megan Primary Care Physician Encounter [facility] Date(s): 10/01/21 - 10/31/21 [facility] [address] [place] [address]- Allergies, Adverse Reactions, Alerts No Known Allergies [...] Vaccine (old term) 99 Given 1Result Comment: 26089-002-40 2Result Comment: wrong dose ordered 3Result Comment: 31769-712-20 4Result Comment: VIS GIVEN 04/04/11 5Result Comment: 08388-436-69 6Result Comment: gardasil 9 7Result Comment: VIS GIVEN 11/05/12 8Result Comment: entered in error Medications hydrocortisone 2.5% topical cream 1 application, Topically, 3 times a day, for 14 days, apply in a thin film to the affected skin andrub in gently and completely, # 30 Gm, 0 Refills, Acute 11/01/21 9:51:00 EDT, 10/18/21 9:51:00 EDT,[place], [id number], Partial fill upon patien... Start Date: 10/18/21 Stop Date: 11/01/21 Status: Ordered Problem List Condition Effective Dates Status Health Status Inform ant Headache(Confirmed) Active Obese class I(Confirmed) Active Oligomenorrhea(Confirmed) Active Vaginitis(Confirmed) Active Social History Social History Type Response Smoking Status Never smoker; Tobacc o user in household: No entered on: 01/26/18 Sex
--- OUTSIDE RECORDS SUMMARY | 2023-07-07 02:54 | XMS_ITS | Continuity of Care Document ---
Author Name Unknown Organization [facility] ter Address [address] [place] [address]- Care Team Providers Care Mandrel Maker Name Role Phone Zachary [facility]JEE, [facility] Physician [facility]counter [facility] Date(s): 07/08/22 - 08/13/[address] [address] Attending Physician: Peter Li MD Admitting Physician: [...] Vaccine (old term) 99 Given 1Result Comment: 91276-626-43 2Result Comment: wrong dose ordered 3Result Comment: 02022-620-12 4Result Comment: VIS GIVEN 04/04/11 5Result Comment: 62083-241-09 6Result Comment: gardasil 9 7Result Comment: VIS [...] Team Personnel Name: Megan Sharma MD Position: [facility] Resident Member Role: PCP Address: Address: [address] [place] [address] Name: Peter Li MD Position: [facility] REGRADER MD Member Role: Lifetime REGRADER Physician Address: Address: [address] [place] [address] [facility], [place] [address]- Care Team Related Persons Name: CAN ELMORE Address: [address] Address: home [address] Name: AMANDA HANEY Address: home [address] [place] [address] Name: HECTOR GILLILAND Address: home [address] [place] [address]
--- OUTSIDE RECORDS SUMMARY | 2023-07-07 02:54 | XMS_ITS | Continuity of Care Document ---
Author Name Unknown Organization [facility] Address [address] [place] [address]- Care Team Providers Care Retort Loader Name Role Phone Jacobo Angel MD Primary Care Physician [phone] [place] [facility] [place] 01/26/23 - 02/25/23 [facility] [address] [place] [address] Allergies, Adverse Reactions, Alerts No Known Allergies [...] Vaccine (old term) 99 Given 1Result Comment: 41444-728-47 2Result Comment: 49830-321-77 3Result Comment: VIS GIVEN 04/04/11 4Result Comment: [...] Team Personnel Name: Jacobo Angel MD Position: [facility] Resident Member Role: PCP Address: Address: [address] [place] [address] Name: Peter Li MD Position: [facility] OFFICE SERVICES MANAGER MD Member Role: Lifetime OFFICE SERVICES MANAGER Physician Address: Address: [address] [place] [address] [facility], [address] Care Team Related Persons Name: CAN ELMORE Address: [address] Address: home [address] Name: AMANDA HANEY Address: [address] [place] [address] Name: HECTOR GILLILAND Address: [address] [place] [address] Name: LAYTON COHN Address: home [address] [place] [address]
--- OUTSIDE RECORDS SUMMARY | 2023-07-07 02:54 | XMS_ITS | Continuity of Care Document ---
Author Name Unknown Organization [facility] Address [address] [place] [address]- Care Team Providers Care Seam Stayer Name Role Phone Zachary BANERJEE, [facility] Primary Care Physician Encounter [facility] Date(s): 11/19/22 - 12/19/22 [facility] [address] [place] [address] Attending Physician: Howard Ledbetter Admitting Physician: Admtr, Ar8 Referring Physician: Admtr, Ar8 Allergies, Adverse Reactions, [...] Vaccine (old term) 99 Given 1Result Comment: 30415-675-19 2Result Comment: 73325-401-37 3Result Comment: wrong dose ordered 4Result Comment: 63798-130-84 5Result Comment: VIS GIVEN 04/04/11 6Result Comment: [...] Team Personnel Name: Megan Sharma MD Position: [facility] Resident Member Role: PCP Address: Address: [address] [place] [address]- Name: Peter Li MD Position: [facility] CNC MACHINIST MD Member Role: Lifetime CNC MACHINIST Physician Address: Address: [address] [place] [address] [facility], [place] [address]- Care Team Related Persons Name: CAN ELMORE Address: [address] Address: home [address] [place] [address] Name: AMANDA HANEY Address: home [address] [place] [address] Name: HECTOR GILLILAND Address: home [address] [place] [address] Name: LAYTON COHN Address: [place] [address]
--- OUTSIDE RECORDS SUMMARY | 2023-07-07 02:54 | XMS_ITS | Continuity of Care Document ---
Author Name Unknown Organization [facility] Address [address] [place] [address]- Care Team Providers Care Dramatic Coach Name Role Phone Jacobo Angel MD Primary Care Physician [phone] Encounter [facility] Date(s): 12/05/22 - 01/04/[address] [address]- Allergies, Adverse Reactions, Alerts No Known Allergies [...] Vaccine (old term) 99 Given 1Result Comment: 59993-517-43 2Result Comment: 54114-240-16 3Result Comment: wrong dose ordered 4Result Comment: 57752-251-10 5Result Comment: VIS GIVEN 04/04/11 6Result Comment: [...] Team Personnel Name: Jacobo Angel MD Position: [facility] Resident Member Role: PCP Address: Address: [address] [place] [address] [place] [address]- Name: Peter Li MD Position: [facility] GREENS OR GROUNDS SUPERINTENDENT MD Member Role: Lifetime GREENS OR GROUNDS SUPERINTENDENT Physician Address: Address: [address] [place] [address] [facility], [place] [address]- Care Team Related Persons Name: CAN ELMORE Address: [address] Address: home [address] [place] [address] [place] Name: AMANDA HANEY Address: home [address] [place] [address] Name: HECTOR GILLILAND Address: home [address] [place] [address] Name: LAYTON COHN Address: [place] [address]
--- OUTSIDE RECORDS SUMMARY | 2023-07-07 02:54 | XMS_ITS | Continuity of Care Document ---
Author Name Unknown Organization [facility] Address [address] [place] [address]- Care Team Providers Care Sand Bobber Name Role Phone Zachary BANERJEE, [facility] Primary Care Physician Encounter [facility] [place] Date(s): 04/29/22 - 05/29/22 [facility] [address] [place] [address] Allergies, Adverse Reactions, Alerts No [...] Vaccine (old term) 99 Given 1Result Comment: 70586-270-27 2Result Comment: wrong dose ordered 3Result Comment: 70344-653-68 4Result Comment: VIS GIVEN 04/04/11 5Result Comment: 81843-579-65 6Result Comment: gardasil 9 7Result Comment: VIS [...] Team Personnel Name: Megan Sharma MD Position: [facility] Resident Member Role: PCP Address: Address: [address] [place] [address]- Name: Peter Li MD Position: [facility] HOSPITAL NURSING ASSISTANT MD Member Role: Lifetime HOSPITAL NURSING ASSISTANT Physician Address: Address: [address] [place] [address] [facility], [place], [place] [address] Care Team Related Persons Name: AMANDA HANEY Address: home [address] [place] [address] Name: HECTOR GILLILAND Address: [place] [address]
--- OUTSIDE RECORDS SUMMARY | 2023-07-07 02:54 | XMS_ITS | Continuity of Care Document ---
Author Name Unknown Organization [facility] Address [address] [place] [address]- Care Team Providers Care Dump Worker Name Role Phone Zachary BANERJEE, Megan Primary Care Physician [facility]counter [facility] Date(s): 03/17/22 - 04/16/22 [facility] [address] [place] [address]- Attending Physician: Howard Ledbetter Admitting Physician: Howard [...] Vaccine (old term) 99 Given 1Result Comment: 62637-446-44 2Result Comment: wrong dose ordered 3Result Comment: 70882-644-53 4Result Comment: VIS GIVEN 04/04/11 5Result Comment: 74613-892-60 6Result Comment: gardasil 9 7Result Comment: VIS [...] Personnel Name: Zachary BANERJEE, Megan Address: Address: [address] [place] [address]
--- OUTSIDE RECORDS SUMMARY | 2023-07-07 02:54 | XMS_ITS | Continuity of Care Document ---
Author Name Unknown Organization [facility] ter Address [address] [place] [id number]- Care Team Providers Care Telegraph Messenger Name Role Phone Zachary BANERJEE, [facility] Primary Care Physician Encounter [facility] Date(s): 10/28/22 - 10/29/[address] [address] Discharge Disposition: A-D/C Home Attending Physician: Akua Cortes MD Admitting Physician: Akua Cortes MD Referring Physician: Akua Cortes MD Allergies, Adverse Reactions, Alerts No Known [...] Vaccine (old term) 99 Given 1Result Comment: [id number] 2Result Comment: [id number] 3Result Comment: wrong dose ordered 4Result Comment: [id number] 5Result Comment: VIS GIVEN 04/04/11 6Result Comment: gardasil 9 7Result Comment: VIS GIVEN 11/05/12 8Result Comment: entered in error Medications Multivitamins with Vitamin B Complex, Vitamin C, Minerals and L- Methylfolate oral capsule 1 capsule, By Mouth, Daily, # 90 capsule, 2 Refills, Maintenance, 09/23/22 18:38:00 EDT, Capsule, [id number], Partial fill upon patient request if the prescription is for a schedule II opioiddrug., 1 capsule By Mouth Daily, 157.48, cm, 03/27/... Start Date: 09/23/22 Status: Ordered Problem List Condition Confirmation Course Effective Dates Status H ealth Status Informant History of chlamydia Confirmed Active History of Headache, migraine 1 Confirmed Active Obese class II Confirmed Active Oligomenorrhea Confirmed Active 1Treat on e her own with Tylenol Vital Signs Most recent to oldest [Reference Range]: 1 2 Oxygen Saturation [94-100 %] 99 % (10/28/22 6:20 PM) Pulse Rate [55-90 bpm] 92 bpm *H* (10/28/22 11:38 PM) Blood Pressure [90-138/55-84 mm Hg] 110/ 68mm Hg (10/28/22 11:38 PM) 112/66mm Hg (10/28/22 6:20 PM) Respiratory Rate [16-30 br/min] 18 br/mi n (10/28/22 11:38 PM) 18 br/min (10/28/22 6:20 PM) Temperature [96.8-100.4 DegF] 98.8 DegF (10/28/22 11:38 PM) 98.2 DegF (10/28/22 6:20 PM) Mode of Delivery (Oxygen) Room air (10/28/22 11:38 PM) Room air (10/28/22 6:20 PM) Blood pressure sites Arm, left (10/28/22 11:38 PM) Arm, right (10/28/22 6:20 PM) Temperature Route Oral (10/28/22 11:38 PM) Oral (10/28/22 6:20 PM) Dry Weight 91.0 kg (10/28/22 6:20 PM) Dry Weight Obtained Via Standing scale (10/28/22 6:20 PM) Social History Social History Type Response Smoking Status Never smoker; Tobacc o user in household: No entered on: 01/26/18 Sex Note * Aleshia Hernandez RN: PERFORM Event Display: Discharge/Transfer Note Hospital Authored Date: [id number] Nursing Discharge Note Entered On: 10/29/2022 1:48 EDT Performed On: 10/29/2022 1:48 EDT by Aleshia Hernandez RN Nursing Discharge Note 2 Discharge Time : 10/29/2022 1:43 EDT Discharge Level of Care at Discharge : Home/Assisted/Foster Care Patient Left Unit Via : Ambulatory Patient Accompanied Off Unit with : Significant other DC Instructions Provided & Signed by Pt : Yes Patient Understands D/C Instructions : Yes Patient Instructions Discharge Signed : Yes Did Pt have Specialty Bed or Wound Vac : No Aleshia Hernandez RN - 10/29/2022 1:48 EDT * Event Display: Discharge/Transfer Note Hospital Authored Date: * Aleshia Hernandez RN: PERFORM Event Display: Patient Education/Instruction Authored Date: Inpatient Adult Discharge Instructions [address] [address] Name: AMANDA BOUDREAUX : 2000 Visit: 10/28/2022 18:09:00 Current Date: 10/29/2022 01:31 Account: [id number] Inpatient Adult Discharge Instructions We would like [...] and their families. Surveys are administered by [employer] ?? If further treatment with your primary care physician or another doctor is recommended, it is important for you to keep the appointment. Call your primary care physician or return to the Emergency Department immediately if your condition worsens, fails to improve, or new symptoms develop. If you need to find a doctor, you can call [facility] for a referral at [phone] or toll free at [phone] or log in to [email or web address].. ?? You can view and manage your care through the patient portal or by using a health care kenan of your choosing. [employer] is a website that allows you to securely view your medical information including your hospital discharge summary, office visit summaries, medications and follow-up visits. You can also request appointments, renew medications, and request access to your medical information using a health care kenan of your choosing, or just ask a question. You can enroll at [email or web address] or register during your next office visit. You have been discharged from [facility], Patient Care Unit: [id number]. If you have any questions regarding these instructions after you leave, please call us and we will be happy to assist you. [facility] Your Care Team Attending Physician Akua Cortes MD Tests Performed Below is a partial list of the tests performed during your hospitalization. You may have had other tests and procedures not included in this list. Please discuss all test results with your provider. Chlamydia/N. Gonorrhoeae TMA (NAAT)?-- Results Pending -- Complete Urinalysis?-- Results Pending -- Urine Culture?-- Results Pending -- ? You will be contacted within 72 hours with your results. Primary Care Provider Megan Sharma MD Advance Directive . Discharge Vitals Temperature: 98.8 DegF Pulse Rate:??92 bpm??High Respiratory Rate: 18 br/min Systolic Blood Pressure: 110 mm Hg Diastolic Blood Pressure: 68 mm Hg Oxygen Saturation: 99 % Studies Pending All tests and labs ordered during this hospital stay have been completed unless listed below. Please discuss all pending results with your provider listed above in these instructions. ?? Chlamydia/N. Gonorrhoeae TMA (NAAT) Complete Urinalysis Urine Culture What to do next Instructions From Your Doctor Discharge Orders Scheduled Follow-Up Appointments Thursday. 2022 10:00 AM EDT ?? With: Argentina Oh CNM Where: [facility] [address] [place] [address]- You Need to Schedule the Following Appointments Follow Up with??Please follow up as scheduled for routine OB care When?? Discharge Medications AMANDA BOUDREAUX :2000 Visit Date:10/28/2022 Medications: Please continue your medications until treatment is completed or stopped by your provider. Medications not listed below should be discontinued. Discuss any questions related to medications with your provider. What How Much When Instructions Next Dose Unchanged Multivitamin, ( Multivitamins with Vitamin B Complex, Vitamin C, Minerals and L- Methylfolate oral capsule) 1 capsule Oral Daily Test Results Below is a partial list of the most recent Laboratory test results done prior to this discharge. You may have had other tests and procedures not included in this list. Please discuss all test resultswith your provider. Allergies (NKA means No Known Allergies) NKA Problems Active Problems??(5) History of chlamydia?? History of Headache, migraine?? Obese class II?? Oligomenorrhea? Education Materials Below is the list of Educational Leaflet Providered with your Discharge Instructions. Comfort Tips During ?? Common Discomforts During ?? Adapting to : First Trimester?? Valuables and Belongings I fully understand and agree that [facility] accepts no responsibility for all my [...] to send valuables and belongings home. ? Other Discharge Information ? Pulmonary Rehab Status?? [...] are strongly encouraged to quit. Please call [facility]formerly [employer]) Link at [phone] or [phone] ([phone]) or log in to [email or web address] for referrals to smoking cessation programs. ?? 790 Suicide & Crisis Lifeline is available 12/01 if you or someone you know needs to find a reason to keep living. By calling 054 you'll be connected to a skilled, trained counselor at a crisis center in your area. INPATIENT DISCHARGE INSTRUCTIONS SIGNATURE PAGE AMANDA BOUDREAUX Location:[facility] Registration Date and Time:10/28/2022 18:09 EDT Primary Care Physician: Zachary BANERJEE, [facility], I AMANDA BOUDREAUX, have received the above patient education materials/instructions and have verbalized understanding. If ambulance or transport services are being used I further acknowledge being given a choice of service. ?? If you need to contact me, please call me at this number: . Patient/Swim Coach Name: Patient/Swim Coach Signature: Relationship to Patient: Witness Name/Signature: Date: * Aleshia Hernandez RN: PERFORM, SIGN, VERIFY Event Display: Patient Education Handout Authored Date: * Aleshia Hernandez RN: PERFORM Event Display: Patient Education Leaflets Authored Date: Comfort Tips During ?? [address]390 Comfort Tips During can bring discomfort of different kinds. Below are tips for ways to feel better.??Talk with your??healthcare provider before using pain-relieving medicine at any time during your . First trimester tips Easing nausea ??? Get up slowly. Eat a few unsalted crackers before you get out of bed. ??? Avoid smells that bother you. ??? Eat small,??bland, low-fat, high-protein meals at frequent intervals. ??? Sip on water,weak??tea, or clear soft drinks, like carlos raina.??Eat ice chips. ??? Try taking vitamin B6. Coping with fatigue ??? Take catnaps when you can. ??? Get regular exercise. ??? Accept help from others. ??? Practice good sleep habits, like going to bed and getting up at the same time each day. Use your bed only forsleep and sex. Calming mood swings ??? Talk about your feelings with others, including other mothers. ??? Limit sugar, chocolate, and caffeine. ??? Eat a healthy diet. Don???t skip meals. ??? Get regular exercise. Soothing headaches ??? Get fresh air and exercise. ??? Relax and get enough rest. ??? Check with your healthcare provider before taking any pain medicines. ?? Second trimester tips ??? To limit ankle swelling, sit with your feet raised or wear support hose. ??? If you have pain in your groin and stomach??(round ligament pain), don't make sudden twisting movements with your body. ??? For leg cramps, flexing your foot often brings immediate relief. Also try massaging your calf in long, downward strokes, or stretching your legs before going to bed. Get enough exercise and wear shoes with flexible soles. Eat foods rich in calcium. ?? Third trimester tips Reducing heartburn ??? Eat small, light meals throughout the day rather than 3 large ones. ??? Sleep with your upper body raised 6 inches. Don???t lie down until 2 hours after you eat. ??? Don't eat greasy, fried, or spicy foods. ??? Don't have citrus fruits or juices. Treating constipation ??? Eat foods high in fiber, such as whole-grain foods, and fresh fruit and vegetables). ??? Drink plenty of water. ??? Get regular exercise. ??? Ask about your healthcare provider about medicines that have docusate or psyllium. Taking care of your breasts ??? Don't use harsh soaps or alcohol, which can make your skin too dry. ??? Wear nursing bras. Theyprovide more support than regular bras and can be used after if you breastfeed. Getting a good night???s sleep ??? Take a warm shower before bed. ??? Sleep on a firm mattress. ???Lie on your side with 1 leg crossed over the other. ??? Use pillows to support your arms, legs, andbelly. ?? Last Reviewed Date: 2020 ?? 0025-3659 [employer] All rights reserved. This information is not intended as a substitute for professional medical care. Always follow your healthcare professional's instructions. ?? * Aleshia Hernandez RN: PERFORM Event Display: Patient Education Leaflets Authored Date: [id number] Common Discomforts During ?? [id number] Common Discomforts During Symptoms of discomfort due to vary from person to person. Below are some common discomforts. But each qfiguk-gv-ey may have different symptoms or none at all: ??? Nausea and vomiting. Abouthalf of all people have nausea and sometimes vomiting in the first trimester. This is alsocalled morning sickness. That's because symptoms are most severe in the morning. Some people may have nausea and vomiting throughout the .??Morning sickness may be due to the changes in hormone levels during . Morning sickness seems to be??made worse??by stress, traveling, and certain foods, like spicy or fatty foods. Eating small meals several times a day may help lessen the symptoms. A diet high in protein and complex carbohydrates (like whole-wheat bread, pasta, bananas, and green, leafy vegetables) may also help reduce the severity of the nausea. If vomiting is severe, causing you to lose fluids and weight, it may??be a sign of??a condition called hyperemesis gravidarum. Hyperemesis can lead to dehydration and may need a hospital stay for intravenous fluids and nutrition. Call your healthcare provider or index editor if you are having constant or severe nausea and vomiting. ??? Fatigue. As the body works overtime to provide a nourishing environment for the fetus, it is no wonder a person often feels tired. In the first trimester, their blood volume and other fluids increase as their body adjusts to the . Sometimes anemia is the underlying cause of the fatigue. Anemia is a drop in the ability of red blood cells to carry oxygen. It is often due to low iron levels. A simple blood test done at a visit will check for anemia. ??? Hemorrhoids. Hemorrhoids are common in late . That's because of the increased pressure on the rectum and perineum, the increased blood volume, and the increased likelihood of becoming constipated as the progresses. Preventing constipation and straining may help to prevent hemorrhoids. Always check with your healthcare provider or index editor before using any medicine to treat this condition.??? Varicose veins. Varicose veins???swollen, purple veins???are common in the legs and around the vaginal opening during late . In most cases, varicose veins are caused by the increased pressure on the legs and the pelvic veins. It is also caused by the increased blood volume. ??? Heartburn and indigestion. Heartburn and indigestion is caused by pressure on the intestines and stomach (which, in turn, pushes stomach contents back up into the esophagus). It can be prevented or reduced by eating smaller meals throughout the day and by not lying down shortly after eating. ??? Bleeding gums. Gums may become more spongy as blood flow increases during . This causes them to bleedeasily. A person should continue to take care of her teeth and gums and go to the dentist for regular checkups. This symptom usually disappears after . ??? Pica. Pica is a rare craving to eat substances other than food, like dirt, asim, or coal. The craving may be a sign of a nutritional deficiency. ??? Swelling or fluid retention. Mild swelling is common during . But se tremaine swelling that??lasts may??be a sign of??preeclampsia (abnormal condition marked by high blood pressure). Lying on the left side, elevating the legs, and wearing support hose and comfortable shoes may help to relieve the swelling. Be sure to notify your??healthcare provider??or index editor about sudden swelling, especially in the hands or face, or rapid weight gain. ??? Skin changes. Because of changes in hormone levels, including hormones that stimulate pigmentation of the skin, brown, blotchypatches may??happen on the face, forehead, or cheeks. This is often called the mask of , or chloasma. It often disappears soon after delivery. Using sunscreen when outside can reduce the amount of darkening that happens.?? Pigmentation may also increase in the skin surrounding the nipples,called the areola. A dark line??also often appears down the middle of the stomach. Freckles may darken, and moles may grow. ??? Stretch moody. Pinkish stretch moody may appear on the stomach, breasts, thighs, or buttocks. Stretch moody are generally caused by a rapid increase in weight. The moody us ually fade after . ??? Yeast infections. Due to hormone changes and increased vaginal discharge, also called leukorrhea, a person is more prone to yeast infections. Yeast infectionscause a thick, whitish discharge from the vagina and itching. Yeast infections are highly treatable. Always talk with your healthcare provider or index editor before taking any medicine for this condition.? Congested or bloody nose. During , the lining of the respiratory tract receives more blood, often making it more congested. This congestion can also cause stuffiness in the nose or nosebleeds. Small blood vessels in the nose are also easily damaged due to the increased blood volume, causing nosebleeds. ??? Constipation. Increased pressure from the on the rectum and intestines can interfere with digestion and bowel movements. Hormone changes may also slow down the food being processed by the body. Increasing fluids, exercising regularly, and increasing the fiber in your diet are some of the ways to prevent constipation. Always check with your healthcare provider or index editor before taking any medicine for this condition.? Backache. As a person's weight increases, their balance changes. Their center of gravity is pulled forward,??straining the back. Pelvic joints that begin to loosen in preparation for childbirth also contribute to this back strain. Correct posture and correct lifting methods throughout the can help reduce the strain on the back.??? Dizziness. Dizziness during is a common symptom. It may be caused by: o Low blood pressure due to the uterus compressing major arteries o Low blood sugar o Low iron o Quickly moving from a sitting position to a standing position o Dehydration To prevent injury from falling during episodes of dizziness, a person should stand up slowly and hold on to the daigle and other stable structures for support and balance. ??? Headaches. Hormonal changes may be the cause of headaches during , especially during the first trimester. Rest, correct nutrition, and adequate fluidintake may help??ease headache symptoms. Always talk with your healthcare provider or index editor??before taking any medicine for this condition. If you have a severe headache or a headache that does notgo away, call your healthcare provider. It may be a sign of preeclampsia.?? Last Reviewed Date: 2022 ?? [id number] [employer] All rights reserved. This information is not intended as a substitute for professional medical care. Always follow your healthcare professional's instructions. ?? * Aleshia Hernandez RN: PERFORM Event Display: Patient Education Leaflets Authored Date: [id number] Adapting to : First Trimester ?? [address]1970 Adapting to : First Trimester As your body adjusts during your first trimester of , you may have to change or limit yourdaily activities. You???ll need more rest. You may also need to use the energy you have more wisely. Your changing body Almost every part of your body is affected as you adapt to . The uterus and cervix will start to soften right away. You may not look very during the first 3 months. But you are likely to have some common signs of early : ??? Nausea ??? Fatigue ??? Frequent urination ??? Mood swings ??? Bloating of the belly ??? Constipation ??? Heartburn ??? Missed or light periods (first trimester bleeding) ??? Nipple or breast tenderness and breast swelling ?? It???s not too late to start good habits What matters most is protecting your baby from this moment on. If you smoke, drink alcohol, or use drugs, now is the time to stop. If you need help, talk with your healthcare provider: ??? Smoking increases the risk of stillbirth??or having a rov-qqenb-ckxvqw baby. If you smoke, quit now. ??? Alcohol and drugs have been linked with miscarriage, defects, intellectual disability, and low weight. Don't drink alcohol or take drugs. ?? Tips to relieve nausea During , nausea can happen at any time of the day, but it may be worse in the morning. To help prevent nausea: ??? Eat small, light meals at frequent intervals. ??? Drink fluids often. ??? Get up slowly. Eat a few unsalted crackers before you get out of bed. ??? Avoid smells that bother you. ??? Avoid spicy and fatty foods. ??? Eat an ice pop??in your favorite flavor. ??? Get plenty of rest. ??? Ask your healthcare provider about taking carlos or vitamin B6 for nausea and vomiting. ???Talk with your healthcare provider if you take vitamins that upset your stomach. ?? Work concerns The end of the first trimester is a good time to discuss working during with your employer. Follow your healthcare provider???s advice if your job needs you to stand for a long time, work with hazardous tools, or even sit at a desk all day. Your workspace, workload, or scheduled hours mayneed to be adjusted. Perhaps you can change body postures more often or take an extra break. ?? Advice for travel Talk to your healthcare provider first, but the second trimester may be the best time for any travel. You may be advised to avoid certain trips while you???re . Food and water can be concernsin developing countries. Travel by car is a good choice, as you can stop, get out, and stretch. Bring snacks and water along. Fasten the lap belt below your belly, low over your hips. Also be sure to wear the shoulder harness. ?? Intimacy Unless your healthcare provider tells you to, there's no reason to stop having sex while you???re . You or your partner may notice changes in desire. Desire may be less in the first trimesterdue to nausea and fatigue. In the second trimester, sex may be very enjoyable. The third trimester can be a challenge comfort-call. Try different positions and see what???s best for you both. ?? How daily issues affect your health Many things in your daily life impact your health. This can include transportation, money problems,housing, access to food, and child adolescent psychiatrist. If you can???t get to medical appointments, you may not receive the care you need. When money is tight, it may be difficult to pay for medicines. And living far from a grocery store can make it hard to buy healthy food. If you have concerns in any of these or other areas, talk with your healthcare team. They may know of local resources to assist you. Or they may have a staff person who can help. ?? Last Reviewed Date: 2022 ?? 7748-6395 [employer] All rights reserved. This information is not intended as a substitute for professional medical care. Always follow your healthcare professional's instructions. ?? Patient Care team information Care Team Personnel Name: Megan Sharma MD Position: [facility] Resident Member Role: PCP Address: Address: [address] [place] [id number]- Name: Peter Li MD Position: [facility] FIELD REPRESENTATIVE/HEALTH EDUCATION MD Member Role: [employer] FIELD REPRESENTATIVE/HEALTH EDUCATION Physician Address: Address: [address] [place] [address] [facility], [place] [address]- Care Team Related Persons Name: CAN ELMORE Address: [id number] Address: home [address] [place] [address] [place] Name: AMANDA HANEY Address: [address] [place] [address] Name: HECTOR GILLILAND Address: home [address] [place] [address]
--- OUTSIDE RECORDS SUMMARY | 2023-07-07 02:54 | XMS_ITS | Continuity of Care Document ---
Author Name Unknown Organization [facility] Address [address] [place] [address]- Care Team Providers Care Programming Coordinator Name Role Phone Jacobo Angel MD Primary Care Physician [phone] [facility] Date[facility]s): 01/28/23 - 03/05/[address] [address] Attending Physician: Destiney Barraza MD Admitting Physician: Destiney Barraza MD Referring Physician: Argentina Oh CNM Allergies, Adverse Reactions, [...] Vaccine (old term) 99 Given 1Result Comment: 13074-832-89 2Result Comment: 03658-381-74 3Result Comment: VIS GIVEN 04/04/11 4Result Comment: [...] tablet, 1 Refills, Maintenance, 11/04/22 8:59:00 EDT, [facility]/pharmacy #[id number], Partial fill upon patient request if [...] Team Personnel Name: Jacobo Angel MD Position: [facility] Resident Member Role: PCP Address: Address: [address] [place] [address]- Name: Peter Li MD Position: [facility] SUPERVISOR GLUING MD Member Role: Lifetime SUPERVISOR GLUING Physician Address: Address: [address] [place] [address] [facility], [address] Care Team Related Persons Name: CAN ELMORE Address: [address] Address: home [address] Name: AMANDA HANEY Address: home [address] [place] [address] Name: HECTOR GILLILAND Address: [address] [place] [address] Name: LAYTON COHN Address: home [address] [place] [address]
--- OUTSIDE RECORDS SUMMARY | 2023-07-07 02:54 | XMS_ITS | Continuity of Care Document ---
Author Name Unknown Organization [facility] Address [address] [place] [address]- Care Team Providers Care Hydrotreater Operator Name Role Phone Not on Staff, PCP Primary Care Physician Unavail able [facility] Date(s): 03/16/23 - 04/15/[address] [address] Allergies, Adverse Reactions, Alerts [...] Vaccine (old term) 99 Given 1Result Comment: 76401-884-12 2Result Comment: 60267-714-11 3Result Comment: VIS GIVEN 04/04/11 4Result Comment: [...] Personnel Name: Not on Staff, PCP Position: [facility] Physician (General Medicine) Member Role: PCP Name: Peter Li MD Position: [facility] SPLINE ROLLING MACHINE JOB SETTER MD Member Role: Lifetime SPLINE ROLLING MACHINE JOB SETTER Physician Address: Address: [address] [place] [address] [address]- Care Team Related Persons Name: CAN ELMORE Address: [address] Address: home [address] [place] [address] Name: AMANDA HANEY Address: home [address] [place] [address] Name: HECTOR GILLILAND Address: home [address] [place] [address] Name: LAYTON COHN Address: [place] [address]
--- OUTSIDE RECORDS SUMMARY | 2023-07-07 02:54 | XMS_ITS | Continuity of Care Document ---
Author Name Unknown Organization [facility] Address [address] [place] [address]- Care Team Providers Care Ski Patrol Director Name Role Phone Zachary BANERJEE, [facility] Primary Care Physician Encounter [facility] Date(s): 03/25/22 - 04/24/22 [facility] [address] [place] [address] Allergies, Adverse Reactions, Alerts No Known [...] Vaccine (old term) 99 Given 1Result Comment: 93270-608-22 2Result Comment: wrong dose ordered 3Result Comment: 40373-860-12 4Result Comment: VIS GIVEN 04/04/11 5Result Comment: 75666-843-26 6Result Comment: gardasil 9 7Result Comment: VIS [...] Personnel Name: Zachary BANERJEE, Megan Address: Address: [address] [place] [address]
--- OUTSIDE RECORDS SUMMARY | 2023-07-07 02:54 | XMS_ITS | Continuity of Care Document ---
Author Name Unknown Organization [facility] Address [address] [place] [address] [address] [place] [address]- Care Team Providers Care Closet Builder Name Role Phone Jacobo Angel MD Primary Care Physician [phone] Encounter [facility] Date(s): 09/22/22 - 01/02/23 [facility] [address] [place] [address]- Attending Physician: Neal Mayberry MD Allergies, Adverse Reactions, [...] Vaccine (old term) 99 Given 1Result Comment: 14587-889-41 2Result Comment: 55873-552-95 3Result Comment: wrong dose ordered 4Result Comment: 83524-404-77 5Result Comment: VIS GIVEN 04/04/11 6Result Comment: [...] Team Personnel Name: Jacobo Angel MD Position: [facility] Resident Member Role: PCP Address: Address: [address] [place] [address] [place] [address]- Name: Peter Li MD Position: [facility] JAVA SDET MD Member Role: Lifetime JAVA SDET Physician Address: Address: [address] [place] [address] [facility], [place] [address]- Care Team Related Persons Name: CAN ELMORE Address: [address] Address: home [address] [place] [address] [place] Name: AMANDA HANEY Address: home [address] [place] [address] Name: HECTOR GILLILAND Address: home [address] [place] [address] Name: LAYTON COHN Address: [place] [address]
--- OUTSIDE RECORDS SUMMARY | 2023-07-07 02:54 | XMS_ITS | Continuity of Care Document ---
Author Name Unknown Organization [facility] Address [address] [place] [address]- Care Team Providers Care Primer And Powder Canning Leader Name Role Phone Zachary BANERJEE, [facility] Primary Care Physician [facility]counter [facility] Date(s): 03/08/22 - 03/08/[address] [address] Discharge Disposition: A-D/C Home Attending Physician: Rhett Emerson MD Admitting Physician: Rhett Emerson MD Referring Physician: Rhett Emerson MD Allergies, Adverse Reactions, Alerts No Known [...] Vaccine (old term) 99 Given 1Result Comment: 12132-794-88 2Result Comment: wrong dose ordered 3Result Comment: 68681-207-25 4Result Comment: VIS GIVEN 04/04/11 5Result Comment: 43313-300-31 6Result Comment: gardasil 7Result Comment: VIS GIVEN 11/05/12 8Result Comment: entered in error Problem List Condition Effective Dates Status Health Status Inform ant Headache(Confirmed) Active Obese class I(Confirmed) Active Oligomenorrhea(Confirmed) Active Vaginitis(Confirmed) Active Vital Signs Most recent to oldest [Reference Range]: 1 Weight 89.7 kg (03/08/22 11:51 AM) Oxygen Saturation [94-100 %] 98 % (03/08/22 11:51 AM) Pulse Rate [55-90 bpm] 71 bpm (03/08/22 11:51 AM) Blood Pressure [90-138/55-84 mm Hg] 118/ 66mm Hg (03/08/22 11:51 AM) Respiratory Rate [16-30 br/min] 16 br/mi n (03/08/22 11:51 AM) Temperature [96.8-100.4 DegF] 97.6 DegF (03/08/22 11:51 AM) Mode of Delivery (Oxygen) Room air (03/08/22 11:51 AM) Blood pressure sites Arm, left (03/08/22 11:51 AM) Temperature Route Oral (03/08/22 11:51 AM) Dry Weight 89.7 kg (03/08/22 11:51 AM) Weight Obtained Via Standing scale (03/08/22 11:51 AM) Dry Weight Obtained Via Standing scale (03/08/22 11:51 AM) Social History Social History Type Response Smoking Status Never smoker; Tobacc o user in household: No entered on: 01/26/18 Sex Care Team Personnel Name: Zachary BANERJEE, Megan Address: [address] [place] [address]
--- OUTSIDE RECORDS SUMMARY | 2023-07-07 02:54 | XMS_ITS | Continuity of Care Document ---
Author Name Unknown Organization [facility] Address [address] [place] [address]- Care Team Providers Care Travelers' Aid Worker Name Role Phone Zachary BANERJEE, [facility] Primary Care Physician [facility]counter [facility](s): 09/26/22 - 10/26/[address] [address]- Allergies, Adverse Reactions, Alerts No Known Allergies [...] Vaccine (old term) 99 Given 1Result Comment: 24763-304-03 2Result Comment: 66604-855-72 3Result Comment: wrong dose ordered 4Result Comment: 05534-731-57 5Result Comment: VIS GIVEN 04/04/11 6Result Comment: [...] cm, 09/15/... Start Date: 09/23/22 Status: Ordered Problem List [...] Team Personnel Name: Megan Sharma MD Position: [facility] Resident Member Role: PCP Address: Address: [address] [place] [address]- Name: Peter Li MD Position: [facility] DISPLAY FABRICATOR MD Member Role: Lifetime DISPLAY FABRICATOR Physician Address: Address: [address] [place] [address] [facility], [place] [address]- Care Team Related Persons Name: CAN ELMORE Address: [address] Address: home [address] [place] [address] Name: AMANDA HANEY Address: home [address] [place] [address] Name: HECTOR GILLILAND Address: home [address] [place] [address]
--- OUTSIDE RECORDS SUMMARY | 2023-07-07 02:54 | XMS_ITS | Continuity of Care Document ---
Author Name Unknown Organization [facility] Address [address] [place] [address]- Care Team Providers Care Pilot Submersible Name Role Phone Not on Staff, PCP Primary Care Physician Unavail able [facility] Date[facility]s): 02/13/23 - 05/24/[address] [address] Attending Physician: Not on Staff, Attending MD [...] Vaccine (old term) 99 Given 1Result Comment: 92347-853-45 2Result Comment: 02183-118-01 3Result Comment: VIS GIVEN 04/04/11 4Result Comment: [...] Personnel Name: Not on Staff, PCP Position: [facility] Physician (General Medicine) Member Role: PCP Name: Peter Li MD Position: [facility] SHOVEL OPERATOR MD Member Role: Lifetime SHOVEL OPERATOR Physician Address: Address: [address] [place] [address], [address] Care Team Related Persons Name: CAN ELMORE Address: [address] Address: home [address] [place] [address] Name: AMANDA HANEY Address: home [address] [place] [address] Name: HECTOR GILLILAND Address: home [address] [place] [address] Name: LAYTON COHN Address: [place] [address]
--- OUTSIDE RECORDS SUMMARY | 2023-07-07 02:54 | XMS_ITS | Continuity of Care Document ---
Author Name Unknown Organization [facility] Address [address] [place] [address]- Care Team Providers Care Control Board Operator Name Role Phone Zachary BANERJEE, [facility] Primary Care Physician [facility]counter [facility] Date(s): 09/24/22 - 10/24/[address] [address]- Allergies, Adverse Reactions, Alerts No Known Allergies [...] Vaccine (old term) 99 Given 1Result Comment: 94039-117-37 2Result Comment: 16442-907-65 3Result Comment: wrong dose ordered 4Result Comment: 63815-020-96 5Result Comment: VIS GIVEN 04/04/11 6Result Comment: [...] Team Personnel Name: Megan Sharma MD Position: [facility] Resident Member Role: PCP Address: Address: [address] [place] [address]- Name: Peter Li MD Position: [facility] PSYCHOSOCIAL REHABILITATION COUNSELOR MD Member Role: Lifetime PSYCHOSOCIAL REHABILITATION COUNSELOR Physician Address: Address: [address] [place] [address] [facility], [place] [address]- Care Team Related Persons Name: CAN ELMORE Address: [address] Address: home [address] [place] [address] Name: AMANDA HANEY Address: home [address] [place] [address] Name: HECTOR GILLILAND Address: home [address] [place] [address]
--- OUTSIDE RECORDS SUMMARY | 2023-07-07 02:54 | XMS_ITS | Continuity of Care Document ---
Author Name Unknown Organization [facility] Address [address], [place], [place] [address]- Care Team Providers Care Information Security Consultant Name Role Phone Zachary BANERJEE, [facility] Primary Care Physician [facility]counter [facility] Date(s): 11/04/22 - 12/04/22 [facility] [address], [address] [place] [address]- Allergies, Adverse Reactions, Alerts No Known Allergies [...] Vaccine (old term) 99 Given 1Result Comment: 77621-759-83 2Result Comment: 45888-863-49 3Result Comment: wrong dose ordered 4Result Comment: 37557-120-52 5Result Comment: VIS GIVEN 04/04/11 6Result Comment: [...] Team Personnel Name: Megan Sharma MD Position: [facility] Resident Member Role: PCP Address: Address: [address] [place] [address]- Name: Peter Li MD Position: [facility] RN PRACTITIONER MD Member Role: Lifetime RN PRACTITIONER Physician Address: Address: [address] [place] [address] [facility], [place] [address]- Care Team Related Persons Name: CAN ELMORE Address: [address] Address: home [address] [place] [address] [place] Name: AMANDA HANEY Address: home [address] [place] [address] Name: HECTOR GILLILAND Address: home [address] [place] [address] Name: LAYTON COHN Address: [place] [address]
--- OUTSIDE RECORDS SUMMARY | 2023-07-07 02:54 | XMS_ITS | Continuity of Care Document ---
Author Name Unknown Organization [facility] Address [address] [place] [address] [address] [place] [address]- Care Team Providers Care Campus Ambassador Name Role Phone Megan Sharma MD Primary Care Physician [facility] Date(s): 09/15/22 - 09/22/22 [facility] [address] [place] [address]- Attending Physician: Neal Mayberry MD Referring Physician: Megan Sharma MD Allergies, Adverse Reactions, Alerts No Known [...] Vaccine (old term) 99 Given 1Result Comment: 85329-576-42 2Result Comment: wrong dose ordered 3Result Comment: 18724-504-02 4Result Comment: VIS GIVEN 04/04/11 5Result Comment: 56385-506-96 6Result Comment: gardasil 9 7Result Comment: VIS GIVEN 11/05/12 8Result Comment: entered in error Problem List Condition Confirmation Course Effective Dates Status Health St atus Informant Headache Confirmed Active Obese class II Confirmed Active Oligomenorrhea Confirmed Active Vaginitis Confirmed Active Vital Signs Most recent to oldest [Reference Range]: 1 Height 157.48 cm (09/15/22 2:12 PM) Weight 92.7 kg (09/15/22 2:12 PM) Pulse Rate [55-90 bpm] 85 bpm (09/15/22 2:12 PM) Body Mass Index [18.5-24.99 kg/m2] 37.38 kg/m2 *>HHI* (09/15/22 2:12 PM) Blood Pressure [90-138/55-84 mm Hg] 108/ 70mm Hg (09/15/22 2:12 PM) Temperature [96.8-100.4 DegF] 97.1 DegF (09/15/22 2:12 PM) Blood pressure sites Arm, left (09/15/22 2:12 PM) Temperature Route Temporal (09/15/22 2:12 PM) Weight Obtained Via Standing scale (09/15/22 2:12 PM) Social History Social History Type Response Smoking Status Never smoker; Tobacc o user in household: No entered on: 01/26/18 Sex Patient Care team information Care Team Personnel Name: Zachary BANERJEE, Megan Position: [facility] Resident Member Role: PCP Address: Address: [address] [place] [address]- Name: Guillermo BANERJEE, Peter Singh Position: [facility] LODGING HOUSE KEEPER MD Member Role: Lifetime LODGING HOUSE KEEPER Physician Address: Address: [address] [place] [address] [place] [address]- Care Team Related Persons Name: CAN ELMORE Address: [address] Address: home [address] [place] [address] [place] Name: AMANDA HANEY Address: [address] [place] [address] Name: HECTOR GILLILAND Address: [address] [place] [address]
--- OUTSIDE RECORDS SUMMARY | 2023-07-07 02:54 | XMS_ITS | Continuity of Care Document ---
Author Name Unknown Organization [facility] Address [address] [place] [address]- Care Team Providers Care Design Drafter Chief Name Role Phone Roz Couch DO Primary Care Physician [facility]): 06/27/20 - 09/20/20 [facility] [address] [address]- Attending Physician: Not on Staff, Attending MD [...] Vaccine (old term) 99 Given 1Result Comment: 40743-712-35 2Result Comment: wrong dose ordered 3Result Comment: 66287-304-54 4Result Comment: VIS GIVEN 04/04/11 5Result Comment: 08152-267-50 6Result Comment: gardasil 9 7Result Comment: VIS GIVEN 11/05/12 8Result Comment: entered in error Medications Diflucan 150 mg oral tablet 1 tablet = 150 mg, By Mouth, Once, # 1 tablet, 5 Refills, Soft Stop, 11/16/19 13:58:00 EDT, Tablet,[facility]/pharmacy #1972, 162.2, cm, 11/16/19 13:24:00 EDT, Height, 85.2, kg, 11/16/19 13:24:00 EDT, Dry Weight Start Date: 11/16/19 Status: Ordered Provera 10 mg oral tablet 10 mg, 1, tablet, By Mouth, Daily, take 1 per day for 10 days, # 30 tablet, Refills 3, Tot. Refills3, Maintenance, 06/19/20 13:38:00 EST, Route to Pharmacy Electronically, [facility]/pharmacy #[id number], Partial fill upon patient request if the prescription is f... Start Date: 06/19/20 Status: Ordered Provera 10 mg oral tablet 10 mg, 1, tablet, By Mouth, Daily, take 1 daily for 10 days- continue after period if bleeding persists, # 30 tablet, Refills 3, Tot. Refills 3, Maintenance, 06/19/20 13:42:00 EST, Route to Pharmacy Electronically, [facility]/pharmacy #1972, Partial fill upo... Start Date: 06/19/20 Status: Ordered SUMAtriptan 100 mg oral tablet 1 tablet = 100 mg, By Mouth, Once, PRN as needed for migraine headache, may repeat dose after 2 hours up to a maximum of 200 mg in 24 hours, # 18 tablet, 1 Refills, Soft Stop, 08/16/19 17:17:00 EST, Tablet, [facility]/pharmacy #1972, 158.4, cm, 08/16/19 16:5... Start Date: 08/16/19 Status: Ordered Xulane 150 mcg-35 mcg/24 hr transdermal film, extended release 1 patch, Topically, Every week, # 12 each, 5 Refills, Maintenance, 11/16/19 13:58:00 EDT, [facility]/pharmacy #1972, 1 patch Topically Every week, 162.2, cm, 11/16/19 13:24:00 EDT, Height, 85.2, kg, 11/16/19 13:24:00 EDT, Dry Weight Start Date: 11/16/19 Status: Ordered Problem List Condition Effective Dates Status Health Status Inform ant Headache(Confirmed) Active Social History Social History Type Response Smoking Status Never smoker; Tobacc o user in household: No entered on: 01/26/18 Sex
--- OUTSIDE RECORDS SUMMARY | 2023-07-07 02:54 | XMS_ITS | Continuity of Care Document ---
Author Name Unknown Organization [facility] Address [address] [place] [address]- Care Team Providers Care Connection Worker Name Role Phone Not on Staff, PCP Primary Care Physician Unavail able [facility]): 03/09/23 - 04/08/[address] [address] Allergies, Adverse Reactions, Alerts No Known [...] Vaccine (old term) 99 Given 1Result Comment: 88149-538-71 2Result Comment: 32272-597-53 3Result Comment: VIS GIVEN 04/04/11 4Result Comment: [...] Personnel Name: Not on Staff, PCP Position: [facility] Physician (General Medicine) Member Role: PCP Name: Peter Li MD Position: [facility] FLIGHT SUPERINTENDENT MD Member Role: Lifetime FLIGHT SUPERINTENDENT Physician Address: Address: [address] [place] [address] [facility], [place] [address]- Care Team Related Persons Name: CAN ELMORE Address: [address] Address: home [address] [place] [address] Name: AMANDA HANEY Address: home [address] [place] [address] Name: HECTOR GILLILAND Address: home [address] [place] [address] Name: LAYTON COHN Address: [place] [address]
--- OUTSIDE RECORDS SUMMARY | 2023-07-07 02:55 | XMS_ITS | Continuity of Care Document ---
Author Name Unknown Organization [facility] Address [address] [place] [address]- Care Team Providers Care University Controller Name Role Phone MannyjoRoz duarte DO Primary Care Physician [facility]): 11/16/19 - 12/16/19 [facility] [address] [place] [address]- Attending Physician: Admtr, Ar8 Allergies, Adverse Reactions, [...] Vaccine (old term) 99 Given 1Result Comment: 81852-357-30 2Result Comment: wrong dose ordered 3Result Comment: 66385-519-66 4Result Comment: VIS GIVEN 04/04/11 5Result Comment: 85187-280-46 6Result Comment: gardasil 9 7Result Comment: VIS GIVEN 11/05/12 8Result Comment: entered in error Medications Diflucan 150 mg oral tablet 1 tablet = 150 mg, By Mouth, Once, # 1 tablet, 5 Refills, Soft Stop, 11/16/19 13:58:00 EDT, Tablet,[facility]/pharmacy #1972, 162.2, cm, 11/16/19 13:24:00 EDT, Height, [...]
--- NOTE | 2023-07-07 03:05 | ED.ABDPAIN ---
HPI - Abdominal Pain General Chief Complaint: Abdominal Pain Stated Complaint: abd pain ? gallbladder Time Seen by Provider: 07/07/23 02:57 Source: patient Mode of arrival: ambulatory Limitations: no limitations History of Present Illness HPI narrative: Patient comes to the emergency room complaining of right upper quadrant pain and epigastric pain. Patient states that she is known to have gallstones present. Patient was diagnosed with cholelithiasis when she was with her 1st baby. Patient was supposed to get a cholecystectomy around October of 2022. However, patient found out that she was with her 2nd baby and the surgery could not be done. Patient delivered her baby in May of 2023. Patient states that since she had her baby, she has had multiple episodes of right upper quadrant pain. Patient states that usually she is able to control the pain by taking a hot shower and taking [id number] pain medications. Today, the pain started around noon and lasted for about 2 hours which is more than usual. At this time, patient is feeling better. Patient denies nausea vomiting or diarrhea. Patient denies fever or chills Related Data Previous Rx's Medication Instructions Recorded ondansetron HCl 4 mg tablet 4 mg PO Q6H PRN nausea and 07/07/23 vomiting #14 tabs tramadol 50 mg tablet 50 mg PO BID PRN pain #7 tabs 07/07/23 Allergies Allergy/AdvReac Type Severity Reaction Status Date / Time No Known Allergies Allergy Verified 07/06/23 22:28 [No Known Allergies*] Review of Systems Review of Systems Constitutional : No Weight loss, No Fever, No Chills, No Night Sweats, No Fatigue, No Malaise ENT/Mouth : No Hearing loss, No Ear Pain, No Nasal Congestion, No Sinus Pain, No Hoarseness, No sore throat, No Rhinorrhea, No Swallowing Difficulty Eyes: No Eye Pain, No Swelling, No Redness, No Foreign Body, No Discharge, No Vision Changes Cardiovascular : No Chest Pain, No SOB, No Dyspnea on Exertion, No Orthopnea, No Edema, No Palpitations Respiratory : No Cough, No Sputum, No Wheezing, No Smoke Exposure, No Dyspnea Gastrointestinal : No Nausea, No Vomiting, No Diarrhea, No Constipation, complaining of intermittent right upper quadrant/epigastric pain radiating towards the back Genitourinary : no irregular bleeding, No Dysuria, No Urinary Frequency, No Hematuria, No Urinary Incontinence, No Urgency, No Flank Pain, No Urinary Flow Changes, No Hesitancy Musculoskeletal : No joint pain, No Myalgias, No Joint Swelling Skin : No Skin Lesions, No rash Neuro : No Weakness, No Numbness, No Paresthesias, No Loss of Consciousness, No Dizziness, No Headache Psych : No Anxiety/Panic, No Depression, No SI/HI/AH/VH, No Social Issues, Heme/Lymph: No Bruising, No Bleeding,No Lymphadenopathy Endocrine : No Polyuria, No Polydipsia, No Temperature Intolerance PMFSH Past Medical History Onset Date is defined in the Problem List Problems that require an onset date and time if occurred within 24 hrs of arrival to the ED Aortic Dissection and Rupture; Neurologic impairment; Cardiopulmonary Arrest; Endotracheal Intubation; Insertion or Replacement of Mechanical Circulatory Assist Device Medical History (Updated 07/07/23 @ 04:19 by Demetrice Nieto MD) Gallstones Social History Social History Advance Directives: No Advance Directives Information Provided: Yes Physical Exam ED Vital Signs: Vital Signs - 24 hr 07/06/23 22:28 07/07/23 01:12 07/07/23 03:15 Temperature 97.4 F 98.0 F 97.8 F Pulse Rate 68 77 57 Respiratory Rate 18 20 16 Blood Pressure 112/70 114/73 102/65 Pulse Oximetry 99 99 97 Oxygen Delivery Method Room Air Room Air Room Air BMI result Body Mass Index 35.1 Const Other: Appearance: Alert. Oriented X3. No acute distress. Eyes: Pupils equal, round and reactive to light. ENT: Pharynx normal. Neck: Normal inspection. Neck supple. No lymph nodes noted. No crepitus CVS: Normal heart rate and rhythm. Pulses normal. Normal S1 and S2 Respiratory: No respiratory distress. Breath sounds normal. No Wheezing. No rales Abdomen: Soft , mild discomfort to palpation in epigastric and right upper quadrant, negative Osborne sign, No rigidity. No distention. Skin: Skin warm and dry. Normal skin color. Normal skin turgor. Extremities: No lower extremity edema. No Lacerations. No Rash Neuro: Oriented X 3. No motor deficit. No sensory deficit. Moving all extremities. No slurred speech. CN 2 through 12 grossly intact Psych: calm, cooperative, normal affect Course Course Course Narrative: Ultrasound pending Medical Decision Making Medical Decision Making MDM Narrative: -my interpretation of labs: White blood cell count 13.0, chemistry unremarkable, T bili normal, AST and LFT and alkaline phosphatase elevated -at this time, patient states that she does not have significant pain, declined pain medication or nausea medication. -ultrasound of the right upper quadrant shows cholelithiasis with no gallbladder wall thickening or pericholecystic fluid. No tenderness in the area of the gallbladder with the ultrasound. No biliary dilatation. -acute cholecystitis is not suspected -patient is asymptomatic -I discussed the labs and imaging with the patient, patient will follow-up with Dr. Agosto from surgery Differential Diagnosis Differential Diagnoses: The differential diagnosis associated with the presentation includes (Acute cholecystitis, choledocholithiasis, ascending cholangitis) Admission/Observation Consideration of admission/observation: Escalation of care including admission/observation considered (Given patient's history of recurrent upper quadrant pain, admission to surgery was considered) Lab Data [facility] Lab Attestation statement: I reviewed the patient's lab results. 07/06/23 23:56 07/06/23 23:56 Labs: Lab Results 07/06/23 Range/Units 23:56 WBC 13.0 H (4.8-10.8) X10*3/uL RBC 4.79 (4.20-5.50) X10*6/uL Hgb 13.0 (12.0-16.0) g/dl Hct 40.8 (37.0-47.0) % MCV 85.2 (80.0-98.0) fL MCH 27.1 (27.0-33.0) pg MCHC 31.9 (31.0-35.0) g/dl RDW 14.6 (11.0-16.0) % Plt Count 369 (160-400) X10*3/uL MPV 8.4 L (9.4-12.3) fL Immature Gran % (Auto) 0.3 (0.0-0.4) % Neut % (Auto) 76.4 H (45-73) % Lymph % (Auto) 16.4 L (20-40) % [place] % (Auto) 5.2 (2-11) % Eos % (Auto) 0.9 (0-4) % Baso % (Auto) 0.8 (0-2) % Lymph # (Auto) 2.1 (1.2-4.9) X10*3/uL [place] # (Auto) 0.7 (0.1-1.2) X10*3/uL Eos # (Auto) 0.1 (0.0-0.4) X10*3/uL Baso # (Auto) 0.1 (0.0-0.2) X10*3/uL Abs Immat Gran (auto) 0.04 H (0.00-0.03) X10*3/uL Absolute Neuts (auto) 9.9 H (2.0-8.3) x10*3/uL Absolute Nucleated RBC 0.000 (0.0-0.012) X10*3/uL Nucleated RBC % (auto) 0.0 (0.0-0.2) /100WBC Sodium 142 (135-145) mmol/L Potassium 3.9 (3.3-5.1) mmol/L Chloride 107 (96-108) mmol/L Carbon Dioxide 26 (22-29) mmol/L Anion Gap 13 (12-20) BUN 13 (9-16) mg/dL Creatinine 0.79 (0.5-1.4) mg/dL Estim Creat Clear Calc 113.4 Estimated GFR > 60 Random Glucose 93 (60-115) mg/dL Calcium 9.9 (8.4-10.2) mg/dL Total Bilirubin 0.8 (0.0-1.0) mg/dL AST 280 H (5-31) U/L ALT 108 H (0-31) U/L Alkaline Phosphatase 147 H (39-117) U/L Total Protein 6.3 L (6.5-8.0) g/dL Albumin 3.7 (3.5-5.0) g/dL Lipase 21 (8-78) U/L Beta HCG, Quant 15 mIU/mL Radiology Impression Discussion of test interpretation with radiology: I have reviewed the radiologist's reading. Radiologist Impression: FINDINGS: PANCREAS: The visualized portions of pancreas are within normal limits. The tail of the pancreas is obscured by bowel gas. LIVER: Normal. The liver is normal in size. The liver contour is normal. Parenchymal echogenicity is normal. No focal hepatic lesion. There is no intrahepatic biliary duct dilatation seen. GALLBLADDER: Significant shadowing extends from the gallbladder fossa consistent numerous gallstones. There is no gallbladder wall thickening or pericholecystic fluid. There is no tendon tenderness in the area of the gallbladder. Midline pain is noted. COMMON BILE DUCT: Normal in caliber measuring 0.3 cm in diameter. RIGHT KIDNEY: Normal. No hydronephrosis. No renal calculi or focal parenchymal lesions. The kidney measures 10.3 cm in maximum dimension. FREE FLUID: None. US/US abdomen limited IMPRESSION: Cholelithiasis. No gallbladder wall thickening or pericholecystic fluid. No tenderness in the area of the gallbladder. No biliary dilatation. Independent Historian Clinical information obtained from an independent historian. History obtained from or confirmed by: Friend Medications Administered Discontinued Medications Generic Name Dose Route Start Last Admin Trade Name Freq PRN Reason Stop Dose Admin Ibuprofen 600 mg 07/07/23 01:18 07/07/23 01:20 Ibuprofen 600 Mg Tablet PO 07/07/23 01:19 600 mg ONCE ONE Administration Discharge Plan Discharge Clinical Impression: Cholelithiasis Patient Disposition: Home, Self-Care Instructions: Biliary Colic (ED), Gallstones (ED) Additional Instructions: Please follow-up with your primary care physician tomorrow. If you have any worsening or new symptoms, please return to the emergency room or call 911 Prescriptions: New tramadol 50 mg tablet 50 mg PO BID PRN (Reason: pain) Qty: 7 0RF ondansetron HCl 4 mg tablet 4 mg PO Q6H PRN (Reason: nausea and vomiting) Qty: 14 0RF Referrals: Kirill Agosto MD [Physician] - 07/08/23 (Cholelithiasis)
[2023-07-07 03:15] VITALS: BP 102/65; PULSE 57; RESP 16; TEMP 36.6; O2SAT 97
[2023-07-07 03:20] LABS: HCG Quantitative 15 mIU/mL
== END 2023-07-07 04:29 | disposition home or self-care (01) ==
PROVIDERS: Emergency Provider Emergency Medicine
DX: K80.20 Calculus of gallbladder without cholecystitis without obstruction (principal)
CPT/HCPCS: 36415; 76705; 80053; 83690; 84702; 85025; 99284

== ENCOUNTER → 2024-02-26 11:43 | Outpatient (BNVA) | payer OTHER, SELFPAY | PROVIDERS: Visit Provider Physician Assistant Surgical ==

== ENCOUNTER 2024-03-25 08:18 | Outpatient (AMB) | payer OTHER, SELFPAY ==
--- OUTSIDE RECORDS SUMMARY | 2024-03-25 08:20 | XMS_ITS | Continuity of Care Document ---
Author Organization [facility] Address [address] [place] [id number]- Care Team Providers Care [facility] Director Name Role Phone Jacobo Angel MD Primary Care Physician Encounter [facility] Date(s): 08/05/23 - 09/06/[address] [address] Attending Physician: Not on Staff, Attending MD Allergies, Adverse Reactions, Alerts No Known Medication Allergies Substance Reaction Severity Status Other Environmental Allergy seasonal allergies Active Immunizations Given and Recorded Vaccine Date [...] Vaccine (old term) 99 Given 1Result Comment: [id number] 2Result Comment: [id number] 3Result Comment: VIS GIVEN 04/04/11 4Result Comment: [...] cm, 06/02/23... Start Date: 06/02/23 Status: Ordered ondansetron 4 mg oral tablet, disintegrating 1 tablet = 4 mg, By Mouth, Every 8 hours, PRN as needed for nausea/vomiting, for 3 days, # 10 tablet, 0 Refills, Acute 09/09/23 7:14:00 EDT, 09/06/23 7:14:00 EDT, DIS Tablet, [id number], Partial fill upon patient request if the prescription is... Start Date: 09/06/23 Stop Date: 09/09/23 Status: Ordered Tylenol Extra Strength 500 mg oral tablet 2 tablet = 1,000 mg, By Mouth, 3 times a day, PRN as needed for pain, for 7 days, # 56 tablet, 0 Refills, Acute 09/07/23 14:02:00 EDT, 08/31/23 14:02:00 EDT, Tablet, [id number], Partial fill upon patient request if the prescription is for a sc... Start Date: 08/31/23 Stop Date: 09/07/23 Status: Ordered Problem List Condition Confirmation Course Effective Dates Status Health St atus Informant Chlamydia infection during Confirmed Active History of delivery, currently in second trimester Confirmed Active History of chlamydia Confirmed Active History of Headache, migraine 1 Confirmed Active Obese class I Confirmed Active 1Treat on e her own with Tylenol Social History Social History Type Response Smoking Status Never smoker; Tobacc o user in household: No entered on: 01/26/18 Sex Patient Care team information Care Team Personnel Name: Jacobo Angel MD Position: [facility] Resident Member Role: PCP Address: Address: [address] [place] [address] Adult [place], [place] [address] Name: Peter Li MD Position: [facility] [employer] Member Role: Lifetime [employer] Physician Address: Address: [address] [place] [address] [facility] [place], [place] [id number] Care Team Related Persons Name: CAN ELMORE Address: [id number] Address: [address] [place] [address] Name: AMANDA HANEY Address: [address] [place] [address] Name: HECTOR GILLILAND Address: [address] [place] [address] Name: MACIE BOUDREAUX Address: [id number] Address: [place] [address] [place] Name: LALITBARBARALAYTON Address: [place] [address]
--- OUTSIDE RECORDS SUMMARY | 2024-03-25 08:20 | XMS_ITS | Continuity of Care Document ---
Author Organization [facility] Address [address] [place] [id number]- Care Team Providers Care Photography Intern Name Role Phone Jacobo Angel MD Primary Care Physician Encounter [facility] Date(s): 09/05/23 - 09/06/[address] [address]- Encounter Diagnosis Vomiting(Final) - 09/05/23 Discharge Disposition: A-D/C Home Attending Physician: Amber Daugherty MD Admitting Physician: Amber Daugherty MD Referring Physician: Not on Staff, Referring [...] Vaccine (old term) 99 Given 1Result Comment: [id number] 2Result Comment: [id number] 3Result Comment: VIS GIVEN 04/04/11 4Result Comment: [...] 1Treat on e her own with Tylenol Procedures Procedure Date Related Diagnosis Body Site Status Laparoscopic cholecystectomy Completed Results Radiology Reports * Exam Date Time Procedure Performing Provider Status 09/06/23 12:36 AM US RUQ Martha Ricardo; Auth (V erified) Notes: (US RUQ) Reason For Exam: post johanny pain and vomiting;Biliary Obstruction RESULT: US RUQ US RUQ Hx of Present Illness: BIBEMS from home with CO ABD pain and vomting. pt states to have had her galbladder out on Thursday. pt given 50 mcg Fent and 4mg zofran from EMS.; Reason: Biliary Obstruction; post johanny pain and vomiting; Clinical Question(s): Biliary Obstruction COMPARISON: Ct 09/05/2023. Ultrasound 07/19/2022 FINDINGS: Liver: Mild diffusely echogenic parenchyma. No suspicious lesion. Smooth hepatic contour. Main portal vein patent with normal hepatopetal direction of flow. Gallbladder: Status post cholecystectomy. Biliary Tree: No intrahepatic or extrahepatic bile duct dilation is identified. Common duct measures: 0.5 cm. Pancreas: Obscured by overlying bowel gas. Right kidney: 10.8 cm in length. Normal parenchymal echotexture and thickness. No hydronephrosis, stone or mass. IMPRESSION: Status post cholecystectomy. No acute abnormality on right upper quadrant ultrasound. I have personally reviewed the images and I agree with this report. WSN: [id number] Ordering Physician: Sarai Alvarez Dictated By: Reji Hines MD Dictated Date/Time: 09/06/23 6:22 am Reviewed By: Yessy Castaneda MD Signed By: Yessy Castaneda MD Signed Date/Time: 09/06/23 6:27 am Transcribed By: TATE Transcribed Date/Time: 09/06/23 6:15 am * Exam Date Time Procedure Performing Provider Status 09/05/23 4:[address] Abd/Pelvis W/ IV Contrast Only Avel Ortega; Auth (Verified) Notes: (CT Abd/Pelvis W/ IV Contrast Only) Reason For Exam: Severe upper abdominal pain, nausea and vomiting one week post johanny;Other: RESULT: CT Abd/Pelvis W/ IV Contrast Only CT Abd/Pelvis W/ IV Contrast Only Hx of Present Illness: BIBEMS from home with CO ABD pain and vomting. pt states to have had her galbladder out on Thursday. pt given 50 mcg Fent and 4mg zofran from EMS.; Reason: Other:; Severe upper abdominal pain, nausea and vomiting one week post johanny; Clinical Question(s): Abscess; Order Comment: TECHNIQUE: Spiral CT through the abdomen and pelvis with IV contrast formatted in 3 planes. 100 cc of Omnipaque 300 was administered intravenously. This study was performed without oral contrast. Weight-based protocol using automatic tube modulation was used to optimize exposure parameters. CTDIvol Body: 20.40 mGy, DLP Body: 1054 mGy*cm. COMPARISON: None. FINDINGS: Automation And Controls Instructor View Findings, Lines and Tubes: None. Visualized Chest: Trace effusions and dependent atelectasis in both lower lobes. Heart size within normal limits. No pericardial effusion. Diaphragm: Intact. Liver: Normal. Gallbladder: Status post cholecystectomy. No fluid collection within the gallbladder fossa. Minimalstranding is noted consistent with recent postoperative state. No CT evidence for abscess or biloma. Bile ducts: No biliary ductal dilation. Spleen: Normal. Pancreas: Normal. Adrenal glands: Normal. Kidneys and ureters: No hydronephrosis, stones, or suspicious masses. Bladder: Normal. Reproductive organs: IUD incidentally noted. Stomach, small bowel, and large bowel: Stomach and small bowel loops are nondistended without evidence for obstruction. Large bowel is also nondistended. No wall thickening. No constipation. Appendix: Normal. Peritoneum and retroperitoneum: No free air. No abscess. Small amount of free fluid seen within thelower midline abdomen and also within the cul-de-sac without associated enhancement. No gas is seenwithin the fluid. No omental or mesenteric lesions. Lymph nodes: No enlarged lymph nodes. Blood vessels: Normal. No aneurysm. No evidence of venous thrombosis. Abdominal and pelvic wall: Unremarkable. Bones: No acute abnormality. IMPRESSION: Status post cholecystectomy. Minimal stranding in the gallbladder fossa. No free air or abscess. No biloma. Small amount of free fluid in the lower abdomen and pelvic cul-de-sac without associated enhancement or gas. Trace bilateral pleural effusions. WSN: [id number] Ordering Physician: Sarai Alvarez Dictated By: Kraig Das MD Dictated Date/Time: 09/05/23 5:10 pm Reviewed By: Kraig Das MD Signed By: Kraig Das MD Signed Date/Time: 09/05/23 5:10 pm Transcribed By: TATE Transcribed Date/Time: 09/05/23 4:44 pm Vital Signs Most recent to oldest [Reference Range]: 1 2 3 Oxygen Saturation [94-100 %] 99 % (09/06/23 7:54 AM) 99 % (09/06/23 4:57 AM) 99 % (09/06/23 1:00 AM) Pulse Rate [55-90 bpm] 63 bpm (09/06/23 7:54 AM) 89 bpm (09/06/23 4:57 AM) 60 bpm (09/06/23 1:00 AM) Blood Pressure [90-138/55-84 mm Hg] 121/74mm Hg (09/06/23 7:54 AM) 120/80mm Hg (09/06/23 4:57 AM) 124/71mm Hg (09/06/23 1:00 AM) Respiratory Rate [16-30 br/min] 18 br/min (09/06/23 7:54 AM) 17 br/min (09/06/23 4:57 AM) 16 br/min (09/06/23 1:00 AM) Temperature [96.8-100.4 DegF] 97.8 DegF (09/06/23 7:54 AM) 97.3 DegF (09/05/23 10:42 PM) 98.9 DegF (09/05/23 3:21 PM) Mode of Delivery (Oxygen) Room air (09/06/23 7:54 AM) Room air (09/06/23 4:57 AM) Room air (09/06/23 1:00 AM) Blood pressure sites Arm, right (09/06/23 7:54 AM) Arm, right (09/06/23 4:57 AM) Arm, right (09/06/23 1:00 AM) Temperature Route Oral (09/06/23 7:54 AM) Oral (09/05/23 10:42 PM) Oral (09/05/23 3:21 PM) Social History Social History Type Response Smoking Status Never smoker; Tobacc o user in household: No entered on: 01/26/18 Sex History and physical note * Shelly Santoro MD: MODIFY Shelly Santoro MD: MODIFY, PERFORM Shelly Santoro MD: PERFORM, SIGN Shelly Santoro MD: SIGN, VERIFY Shelly Santoro MD: VERIFY, MODIFY, MODIFY, MODIFY, MODIFY Event Display: History and Physical Hospital Authored Date: [id number] Patient: AMANDA BOUDREAUX Age: 23 years Sex: Female : 2000 Associated Diagnoses: None Author: Shelly Santoro MD History of Present Illness Amanda Boudreaux is a 23yo female with history of cholelithiasis who underwent a laparoscopic cholecystectomy on 08/[address] Mayberry. Her procedure was uncomplicated and she was discharged home from the PACU that day. She presented to [facility] on 09/[facility] with abdominal pain and vomiting. She states that she had been doing well until approximately 24h ago when she developed worsening pain, food intolerance, and eventually started vomiting. She denies any fevers, chills, or diarrhea. Labs were notable for a WBC count of 21.4 with left shift of 89.4%, alk phose 182, and ALT 53. CT abdomen/pelvis showed minimal stranding in the gallbladder fossa. No free air, abscess, or biloma was seen. General Surgery was consulted for further recommendations. On evaluation, the patient is uncomfortable appearing. She states the pain yesterday work her up from sleep. She has not been able to tolerate significant PO intake since the pain started. She deniesfevers/chills. Her last bowel movement was yesterday and she has been voiding adequately. Past Medical History Problem list All Problems Chlamydia infection during / SNOMED CT 520924056 / Confirmed History of chlamydia / SNOMED CT 7794238655 / Confirmed History of Headache, migraine / SNOMED CT 22251970 / Confirmed Treat on e her own with Tylenol History of delivery, currently in second trimester / SNOMED CT 28715629 / Confirmed Obese class I / SNOMED CT 697928292882180 / Confirmed Surgical History Procedure/Surgical Profile Laparoscopic cholecystectomy (SNOMED CT 18403390). Vaginal delivery of fetus (SNOMED CT 6045517446). Comments: 10/15/2022 9:43 CONSTANTINOT Alec Parada RN, Katharine Demised after delivery (12 mns) Social History Social History Alcohol Details: Use: Never. Employment/School Details: Status: Employed. Other: [employer]. Exercise Details: Self assessment: Fair condition. Home/Environment Details: Living situation: Home/Independent. Lives with: Mother. Nutrition/Health Details: Diet: Regular. Sexual Details: Sexually involved in last 6 months: Yes. Gender identity: Identifies as female. Self described orientation: Straight or heterosexual. Details: Sexually involved in last 6 months: Yes. Substance Abuse Details: Use: Never. Tobacco Details: Never smoker, Tobacco user in household: No. Electronic Cigarette/Vaping Details: Electronic Cigarette Use: Never. . Family History Family History Profile Father Diabetes mellitus Mother Blood clot DVT - Deep vein thrombosis of lower limb Other Cardiac disease 05-APR-2016 02:49:52<$> Diabetes mellitus type II Asthma Review of Systems Constitutional: No weight loss, fever, chills, weakness or fatigue. Allergy/Immune: Denies any Eczema or hives Eyes: No visual loss, blurred vision, double vision or yellow sclera ENT: No hearing loss, sneezing, congestion, runny nose or sore throat. Respiratory: No shortness of breath, cough or sputum production. Cardiovascular: No chest pain, chest pressure or chest discomfort. No palpitations or pedal edema. Gastrointestinal: +nausea, vomiting, abdominal pain. Genitourinary: No burning micturition. No urinary frequency or incontinence. Neurologic: No headache, dizziness, syncope, unilateral weakness, ataxia, numbness or tingling in the extremities. No change in bowel or bladder control. Musculoskeletal: No muscle pain, back pain, joint pain or stiffness. Hematologic/Lymphatics: No bleeding or bruising. No painful lymph nodes. Skin: No rash or itching. Endocrine: No reports of sweating. No cold or heat intolerance. No polyuria or polydipsia. Psychiatric: No depression or anxiety. Physical Examination Vital Signs Vitals : VITALS 09/05/2023 22:42 EDT Temperature 97.3 DegF Temperature Route Oral Pulse Rate 67 bpm Systolic Blood Pressure 123 mm Hg Diastolic Blood Pressure 80 mm Hg Blood pressure sites Arm, right Mean Arterial Pressure 94 mm Hg Pulse Pressure 43 mm Hg Oxygen Saturation 98 % Mode of Delivery (Oxygen) Room air . Physical Exam: General: No acute distress, awake, alert, laying comfortably in bed. HEENT:??Normocephalic, atraumatic. Cardio: Regular rate. Lungs: Non-labored breathing on room air. Abdomen: Obese, soft, non-distended, non-specific tenderness in the supraumbilical area, left flankand right flank. No rebound/guarding. Incisions with steri-strips in place appear to be healing well without evidence of infection. Extremities: Full ROM, moving all limbs spontaneously. Psych:??Appropriate mood and affect. Results Review 7 day results Labs & Documents Laboratory : LABORATORY 09/05/2023 16:33 EDT Influenza A PCR NEGATIVE Influenza B PCR NEGATIVE RSV PCR NEGATIVE COVID-19 PCR Specimen Source NASAL COVID-19 PCR Result NEGATIVE 09/05/2023 15:28 EDT WBC 21.4 k/mm3 H RBC 4.23 m/mm3 Hgb 11.8 Gm/dL Hct 35.9 % MCV 84.9 femtoliters MCH 27.9 pg MCHC 32.9 g/dL L Platelet Count 528 k/mm3 H RDW-SD 43.8 femtoliters MPV 8.1 femtoliters L Nucleated RBC (Automated) 0.0 #/100 WBC'S Abs. NRBC 0.0 k/mm3 Abs. Neut 19.2 k/mm3 H Abs. Lymph 1.4 k/mm3 Abs. Cache 0.6 k/mm3 Abs. Eo 0.1 k/mm3 Abs. Baso 0.1 k/mm3 Neut % 89.4 % H Lymph % 6.7 % L Cache % 2.6 % L Eos % 0.3 % Baso % 0.4 % Imm Gran 0.6 % Abs. Imm Gran 0.1 k/mm3 INR 1.1 Protime (PT) 11.3 seconds Sodium 139 mmol/L Potassium 4.0 mmol/L Chloride 100 mmol/L Bicarbonate Level 24 mmol/L Anion Gap 15 Glucose Level 100 mg/dL H BUN 7 mg/dL Creatinine-Blood 0.6 mg/dL Estimated GFR Creatinine 130 ML/MIN/1.73 M2 Calcium 10.2 mg/dL Protein, Total 7.5 Gm/dL Albumin 4.4 Gm/dL AG Ratio 1.4 Alkaline Phosphatase 182 units/L H Lipase 20 units/L AST (SGOT) 32 units/L ALT (SGPT) 53 units/L H Bilirubin, Total 0.5 mg/dL Lactate 1.1 mmol/L Serum Qual NEGATIVE mIU/mL RESULT: CT Abd/Pelvis W/ IV Contrast Only CT Abd/Pelvis W/ IV Contrast Only Hx of Present Illness: BIBEMS from home with CO ABD pain and vomting. pt states to have had her galbladder out on Thursday. pt given 50 mcg Fent and 4mg zofran from EMS.; Reason: Other:; Severe upper abdominal pain, nausea and vomiting one week post johanny; Clinical Question(s): Abscess; Order Comment: TECHNIQUE: Spiral CT through the abdomen and pelvis with IV contrast formatted in 3 planes. 100 cc of Omnipaque 300 was administered intravenously. This study was performed without oral contrast. Weight-based protocol using automatic tube modulation was used to optimize exposure parameters. CTDIvol Body: 20.40 mGy, DLP Body: 1054 mGy*cm. COMPARISON: None. FINDINGS: Automation And Controls Instructor View Findings, Lines and Tubes: None. Visualized Chest: Trace effusions and dependent atelectasis in both lower lobes. Heart size within normal limits. No pericardial effusion. Diaphragm: Intact. Liver: Normal. Gallbladder: Status post cholecystectomy. No fluid collection within the gallbladder fossa. Minimalstranding is noted consistent with recent postoperative state. No CT evidence for abscess or biloma. Bile ducts: No biliary ductal dilation. Spleen: Normal. Pancreas: Normal. Adrenal glands: Normal. Kidneys and ureters: No hydronephrosis, stones, or suspicious masses. Bladder: Normal. Reproductive organs: IUD incidentally noted. Stomach, small bowel, and large bowel: Stomach and small bowel loops are nondistended without evidence for obstruction. Large bowel is also nondistended. No wall thickening. No constipation. Appendix: Normal. Peritoneum and retroperitoneum: No free air. No abscess. Small amount of free fluid seen within thelower midline abdomen and also within the cul-de-sac without associated enhancement. No gas is seenwithin the fluid. No omental or mesenteric lesions. Lymph nodes: No enlarged lymph nodes. Blood vessels: Normal. No aneurysm. No evidence of venous thrombosis. Abdominal and pelvic wall: Unremarkable. Bones: No acute abnormality. IMPRESSION: Status post cholecystectomy. Minimal stranding in the gallbladder fossa. No free air or abscess. No biloma. Small amount of free fluid in the lower abdomen and pelvic cul-de-sac without associated enhancement or gas. Trace bilateral pleural effusions. Impression and Plan 23yo female presenting with 1 day of nausea, vomiting and abdominal pain. She is s/p laparoscopic cholecystectomy on 08/30 for cholelithiasis. Labs were notable for a WBC count of 21.4 with left shiftof 89.4%, alk phose 182, and ALT 53. CT abdomen/pelvis showed minimal stranding in the gallbladder fossa. No free air, abscess, or biloma was seen. On exam, the patient's abdomen was soft with non-specific tenderness, but no concern for peritoneal signs. At this time, there is no acute surgical intervention indicated. It is possible that her pain is secondary to the passage of a retained gallstone in the CBD. Although her lab work isn't significantly deranged, it remains a possibility. Recommend a RUQUS to better evaluate the ducts. Further recommend IV fluid resuscitation. Plan: - No acute surgical intervention - IV fluids - Follow up RUQ ultrasound to evaluate bile ducts for dilation indication recent passage of a gallstone Discussed with Dr. [facility] [id number] EKG study * Event Display: ECG 12-Lead Authored Date: Please click on pdf link to open report * Event Display: ECG 12-Lead Authored Date: Ventricular Rate: 57 BPM Atrial Rate: 57 BPM P-R Interval: 234 ms QRS Duration: 76 ms Q-T Interval: 436 ms QTC Calculation(Bazett): 424 ms P Abrams: 31 degrees R Abrams: 15 degrees T Abrams: 48 degrees Sinus bradycardia with sinus arrhythmia with 1st degree A-V block Otherwise normal ECG When compared with ECG of 10-FEB-2023 16:41, NE interval has increased Vent. rate has decreased BY 53 BPM Confirmed by Scott De Guzman ([id number]) on 09/05/2023 6:24:57 PM Wisdom: Scott De Guzman Patient Care team information Care Team Personnel Name: Jacobo Angel MD Position: [facility] Resident Member Role: PCP Address: Address: [address] [place] [address]- Name: Peter Li MD Position: [facility] ADMINISTRATIVE ASSOCIATE MD Member Role: [employer]etime ADMINISTRATIVE ASSOCIATE Physician Address: Address: [address] [place] [address] [facility], [place] [address]- Care Team Related Persons Name: CAN ELMORE Address: [id number] Address: [address] [place] [address] [place] Name: AMANDA HANEY Address: [address] [place] [address] Name: HECTOR GILLILAND Address: [address] [place] [address] Name: MACIE BOUDREAUX Address: [id number] Address: [address] [place] [address] [place] Name: LAYTON COHN Address: [address] [place] [address]
--- OUTSIDE RECORDS SUMMARY | 2024-03-25 08:21 | XMS_ITS | Continuity of Care Document ---
Author Organization [facility] ter Address [address] [place] [address]- Care Team Providers Care Juvenile Probation Officer Name Role Phone Jacobo Angel MD Primary Care Physician Encounter [facility] Date(s): 08/31/23 - 08/31/[address] [address] Discharge Disposition: A-D/C Home Attending Physician: Neal Mayberry MD Admitting Physician: Neal Mayberry MD Referring Physician: Neal Mayberry MD Allergies, Adverse Reactions, [...] Vaccine (old term) 99 Given 1Result Comment: [id number] 2Result Comment: [id number] 3Result Comment: VIS GIVEN 04/04/11 4Result Comment: [...] cm, 06/02/23... Start Date: 06/02/23 Status: Ordered oxyCODONE 5 mg oral tablet 5 mg, 1, tablet, By Mouth, Every 6 hours, PRN, for 3 days, # 10 tablet, Refills 0, Tot. Refills 0, Acute 09/03/23 14:02:00 EDT, as needed for pain, 08/31/23 14:02:00 EDT, Route to Pharmacy Electronically, [facility]/pharmacy #[id number], Partial fill upon patient... Start Date: 08/31/23 Stop Date: 09/03/23 Status: Ordered Tylenol Extra Strength 500 mg oral tablet 2 tablet = 1,000 mg, By Mouth, 3 times a day, PRN as needed for pain, for 7 days, # 56 tablet, 0 Refills, Acute 09/07/23 14:02:00 EDT, 08/31/23 14:02:00 EDT, Tablet, [facility]/pharmacy #[id number], Partial fill upon patient request if [...] Range]: 1 2 3 Height 158 cm (08/31/23 11:00 AM) 158 cm (08/26/23 2:13 PM) Weight 84 kg (08/31/23 11:00 AM) 84 kg (08/26/23 2:13 PM) Oxygen Saturation [94-100 %] 94 % (08/31/23 4:00 PM) 94 % (08/31/23 3:45 PM) 97 % (08/31/23 3:30 PM) Pulse Rate [55-90 bpm] 71 bpm (08/31/23 11:00 AM) Body Mass Index [18.5-24.99 kg/m2] 33.65 kg/m2 *>HHI* (08/31/23 11:00 AM) 33.65 kg/m2 *>HHI* (08/26/23 2:13 PM) Blood Pressure [90-138/55-84 mm Hg] 122/85mm Hg (08/31/23 4:00 PM) 122/81mm Hg (08/31/23 3:45 PM) 126/83mm Hg (08/31/23 3:30 PM) Respiratory Rate [16-30 br/min] 15 br/min *L* (08/31/23 4:00 PM) 16 br/min (08/31/23 3:45 PM) 17 br/min (08/31/23 3:30 PM) Temperature [96.8-100.4 DegF] 97.8 DegF (08/31/23 4:00 PM) 97.2 DegF (08/31/23 2:30 PM) 97.8 DegF (08/31/23 11:00 AM) Liters per Minute 6 L/min (08/31/23 2:30 PM) Mode of Delivery (Oxygen) Room air (08/31/23 4:00 PM) Room air (08/31/23 3:45 PM) Room air (08/31/23 3:30 PM) Blood pressure sites Arm, right (08/31/23 4:00 PM) Arm, right (08/31/23 3:45 PM) Arm, right (08/31/23 3:30 PM) Temperature Route Temporal (08/31/23 4:00 PM) Temporal (08/31/23 2:30 PM) Temporal (08/31/23 11:00 AM) Dry Weight 85.8 kg (08/31/23 11:00 AM) 84 kg (08/26/23 2:13 PM) Weight Obtained Via Patient/family state d (08/26/23 2:13 PM) Dry Weight Obtained Via Standing scale (08/31/23 11:00 AM) Patient/family stated (08/26/23 2:13 PM) Social History Social History Type Response Smoking Status Never smoker; Tobacc o user in household: No entered on: 01/26/18 Sex Note * Maryellen Sawant: PERFORM Event Display: Discharge/Transfer Note Hospital Authored Date: [id number] Nursing Discharge Note Entered On: 08/31/2023 15:40 EDT Performed On: 08/31/2023 15:39 EDT by Maryellen Sawant Nursing Discharge Note 2 Discharge Level of Care at Discharge : Home/Detention/Foster Care Can Worker Utilized : No AMA Form Signed : No Patient Left Unit Via : Wheelchair Patient Accompanied Off Unit with : Parent DC Instructions Provided & Signed by Pt : Yes Patient Understands D/C Instructions : Yes Patient Instructions Discharge Signed : Yes Did Pt have Specialty Bed or Wound Vac : No Maryellen Sawant - 08/31/2023 15:39 EDT * Maryellen Sawant: PERFORM, MODIFY Event Display: Patient Education/Instruction Authored Date: Inpatient Adult Discharge Instructions. [address] [address] Name: AMANDA BOUDREAUX : 2000?? Visit: 08/31/2023 10:24?? Current Date: 08/31/2023 15:40 ?? Account: [id number]?? Inpatient Adult Discharge Instructions We would like [...] and their families. Surveys are administered by [employer] ?? If further treatment with your primary care physician or another doctor is recommended, it is important for you to keep the appointment. Call your primary care physician or return to the Emergency Department immediately if your condition worsens, fails to improve, or new symptoms develop. If you need to find a doctor, you can call [facility] [employer] Link for a referral at [phone] or toll free at [phone]) or log in to [email or web address].. ?? [facility], in keeping with [facility] guidance, no longer requires face masks for [...] portal or by using a health care kenna of your choosing. [employer] is a website that allows you to securely view your medical information including your hospital discharge summary, office visit summaries, medications and follow-up visits. You can also request appointments, renew medications, and request access to your medical information using a health care kenan of your choosing, or just ask a question. You can enroll at [email or web address] or register during your next office visit. You have been discharged from [facility], Patient Care Unit: [facility]??. If you have any questions regarding these instructions, including results of studies pending, afteryou leave, please call us and we will be happy to assist you 12/01. [facility] Nursing Unit Direct Phone Number, for 12/01 contact and results of studies pending [facility] [address] [place] [address] Your Care Team Attending Physician Neal Mayberry MD?? Consulting Providers Neal Mayberry MD?? Discharging Providers Nora June MD Tests Performed Below is a partial list of the tests performed during your hospitalization. You may have had other tests and procedures not included in this list. Please discuss all test results with your provider. Pathology Tissue Request ()?? Primary Care Provider Jacobo Angel MD? Advance Directive Health Care Proxy on File Yes - Health Care Proxy Discharge Vitals Temperature: 97.2 DegF Height: 158 cm Pulse Rate: 71 bpm Weight: 84 kg Respiratory Rate: 17 br/min Body Mass Index:??33.65 kg/m2??Critical Systolic Blood Pressure: 126 mm Hg Body surface area: 1.92 Diastolic Blood Pressure: 83 mm Hg ?? Oxygen Saturation: 97 % ?? Studies Pending All studies ordered during this hospital stay have been completed unless listed below. Please discuss all pending results with your provider listed above in these instructions. ?? Pathology Tissue Request ()?? What to do next Instructions From Your Doctor Discharge Instructions:??General??[facility]gery [facility]??General??Surgery? AFTER YOUR SURGERY? IF YOU HAVE HAD GENERAL ANESTHESIA, NO DRIVING, DRINKING ALCOHOL, OR MAKING LEGAL DECISIONS FOR THENEXT 24 HOURS. ?? Diet: ?Return to your regular diet by advancing slowly from clear liquids to soft, bland foods, and finally to a normal meal over 24 hours, avoiding anything heavy, greasy, or spicy. ?Drink 6 to 8 glasses of fluids per day. ?No alcoholic beverages post-operatively or while taking pain medications. ?? Activity: ?Avoid any activity that causes discomfort. ??Normal daily activities are safe. ?Avoid straining, vigorous sports or lifting anything more than 10??pounds for??4 weeks, or as directed by your surgeon. ?After the first 24 hours, you may drive whenever comfortable, but do not go alone the first time and do not drive after taking pain medications. ?? Dressings and Wound care: ?You may remove your bandage (if you have one in place) in 48 hours and shower (no soaking in a tub, pool, or hot tub.) ??If you have steri-strips, deena, or sutures, it???s okay if they happen to get wet, but be sure to pat dry with a clean towel as soon as you get out. ?It is very important to keep your incision area clean and dry. ??You may cover up the incisionswith a bandage for protection, but once the incisions are dried/ scabbed over, you may leave them open to air. ??Steri-strips will start curling up and drying??out over several days. ??They may startto drop off by themselves, and this is all right. ? Medications: ?Pain: ??If you did not receive your prescription at your office visit, you will be given a prescription for pain at the time of discharge, usually??OXYCODONE.??Follow the instructions for taking these medications. ??If the pain you are experiencing is mild, extra-strength Tylenol will likely take care of it. ??Remember that narcotic pain medications can cause constipation. ??Some narcotics contain Tylenol (acetaminophen) and if additional pain medicines are required, do not take additional Tylenol products- use ibuprofen or naproxen instead??if able. ??Take a stool softener as prescribed below and drink plenty of fluids.?Home Medications: Resume any medications your primary physician has prescribed unless specifically instructed. ?Stool softener: ??Colace 100 mg or its generic form??DOCUSATE tablet??by mouth twice a day as directed.??Some??people will need to take stool softener??short-term after??surgery. If you have chronic diarrhea or inflammatory bowel disease, you should not take stool softener unless you are constipated ?Constipation:?? If needed, take??Milk of Magnesia??as directed on the bottle every 6 hours for 24 hours, OR Miralax at night per directions. ??These are both available over the counter. ??If thisfails to relieve the problem, call the office. ?? Expect the following: ?Some oozing of blood to the bandage in the first 24 hours. ?Fatigue, especially in the first 24 hours. ?Pain or discomfort, which will lessen as time passes. ??If your surgery was done laparoscopically, you could have abdominal, shoulder, or collarbone pains. ??These will disappear gradually over several days. ?Constipation is a possibility, especially if narcotic pain relievers are needed. ?? Call the office or answering service immediately if any of the following occur: ?Severe pain not relieved by pain medication. ?Uncontrollable bleeding/ bleeding that saturates your dressing. ?Any bright redness, red streaking, or swelling around your incision, or any bad odor, or pus-like drainage coming from your incision. ?Temperature more than??101 F (38 C). ?Repeated nausea and vomiting or inability to tolerate or hold down fluids ?Inability to urinate. ?? Post-operative appointments: ?If you have not already scheduled your follow-up appointment, call . You should arrange to be seen in 2-3 weeks after surgery. ??Ask regarding exact timing of follow-up. ?A nurse visit might also??be schedule for??1??week after for staple/suture removal or wound check.? Problems or Questions: ?Office hours are 8:30 am to 5:00 pm Thursday thru Thursday. It is best to call during office hours with routine questions.??But if you??questions please call?at anytime. ?If you cannot reach our office and your problem truly requires emergency attention, go to??[facility] Emergency Room??or the nearest emergency room. ?? Orders? 08/31/23 14:12:00 EDT?? Scheduled Follow-Up Appointments Thursday 11:40 AM EDT ?? With: Raman PANTOJA, Indra Prieto Where: [facility] General Surgery [address] [place] [address] [address] [place] [address]- Status: Pending You Need to Schedule the Following Appointments Follow Up with??Jefe BANERJEE, Neal Schrader When:??Within 1 to 2 weeks Where: ?? Discharge Medications AMANDA BOUDREAUX :2000 Visit Date:08/31/2023 Medications: Please continue your medications until treatment is completed or stopped by your provider. Medications not listed below should be discontinued. Discuss any questions related to medications with your provider. What How Much When Instructions Next Dose New Acetaminophen (Tylenol Extra Strength 500 mg oral tablet) 2 tab(s) Oral 3 times a day as needed for as needed for pain Duration: 7 Days Pickup at [facility]/pharmacy #1971 As needed New Oxycodone (oxyCODONE 5 mg oral tablet) 1 tab(s) Oral Every 6 hours as needed for as needed for pain Duration: 3 Days Pickup at [facility]/pharmacy #1971 9pm Unchanged Ibuprofen (Motrin IB 200 mg oral tablet) 3 tab(s) Oral Every 6 hours as needed for for pain As needed Pharmacy Information [facility]/pharmacy #1971: [address], [place] [id number] [phone] Prescription Given During Visit Acetaminophen (Tylenol Extra Strength 500 mg oral tablet) - 2 tablet = 1,000 mg, By Mouth, 3 times a day, # 56 tablet, 0 Refills, [facility]/pharmacy #1972, [address] [place] [address] [phone]?? Oxycodone (oxyCODONE 5 mg oral tablet) - 1 tablet = 5 mg, By Mouth, Every 6 hours, # 10 tablet, 0 Refills, [facility]/pharmacy #1971, [address] [place] [phone]?? Laboratory Results Below is a partial list of the most recent Laboratory test results done prior to this discharge. You may have had other tests and procedures not included in this list. Please discuss all test resultswith your provider. Allergies (NKA means No Known Allergies) No Known Medication Allergies Other Environmental Allergy??(seasonal allergies) Problems Active Problems??(5) Chlamydia infection during ?? History of chlamydia?? History of Headache, migraine?? History of delivery, currently in second trimester?? Obese class I?? Education Materials Below is the list of Educational Leaflet Providered with your Discharge Instructions. [employer] Patient Education - Surgery Medical Daystay Surgical Overnight Discharge Instructions?? [employer] Patient Education - Having Laparoscopic Cholecystectomy?? Valuables and Belongings I fully understand and agree that [facility] accepts no responsibility for all my personal [...] to send valuables and belongings home. ?? Review of Valuable and Belonging List: With patient Disposition of Belongings: Other: to pt belonging room Date for Pt to Sign Valuables/Belongings: 08/31/23 11:38:00 ?? Valuables & Belongings ?? Clothes Electronic devices Jewelry Monetary Items Personal devices Miscellaneous Medications (Valuables) Valuables at Bedside Jacket, Pants, Shirt, Shoes, Undergarments Cell phone Body rings/chains, Necklace ? Valuables Sent Home ? Valuables Sent to Security ? Other Discharge Information ? Case Management Discharge Plan?? Discharge Plan?? Discharge Level of Care at Discharge: Home/Detention/Foster Care ?? Pulmonary Rehab Status?? Pulmonary Rehab Discharge Status?? Respiratory Rate: 17 br/min ? Common Emergency Awareness Tips IS [...] strongly encouraged to quit. Please call [facility] [employer] [facility] at [phone] or [phone] ([phone]) or log in to [email or web address] for referrals to smoking cessation programs. ?? 988 Suicide & Crisis Lifeline is available 12/01 if you or someone you know needs to find a reason to keep living. By calling 431 you'll be connected to a skilled, trained counselor at a crisis center in your area. INPATIENT DISCHARGE INSTRUCTIONS SIGNATURE AMANDA YOUNG Location:[facility] Registration Date and Time:08/31/2023 10:24 EDT Primary Care Physician: Jacobo Angle MD, Attending Physician: Jefe BANERJEE, Neal Schrader, AMANDA FLORES, have received the above patient education materials/instructions and have verbalized understanding. If ambulance or transport services are being used I further acknowledge being given a choice of service. ?? If you need to contact me, please call me at this number: . Patient/Head Orthopedic Team Physician Name: Patient/Head Orthopedic Team Physician Signature: Relationship to Patient: Witness Name/Signature: Date: * Maryellen Sawant: PERFORM Event Display: Patient Education Leaflets Authored Date: [id number] Surgery Medical Daystay Surgical Overnight Discharge Instructions ?? 295 Medical Daystay/Surgical Overnight Discharge Instructions ? Since your coordination and judgment may be altered by medication and/or anesthesia, a responsible adult must drive you home from the hospital. ? If you have received medication for pain or sedation while under our care, you should not drive, operate machinery, drink alcohol, or sign any legal documents for 24 hours.?? You should have someone with you at home tonight. ? Remain at home the day of discharge.?? You may be up and about unless otherwise instructed by your physician. ? You may resume your daily prescription medication schedule.?? Any depressant medication should be avoided for 24 hours unless otherwise instructed by your surgeon or anesthesiologist. ? Call your physician for a follow-up appointment.? If you experience unusual or severe pain not relied by your pain medication, excessive bleedingor drainage, persistent nausea and vomiting, excessive swelling or redness, foul odor from incisionsite or fever over 100.6F, you need to call your physician. ? A follow-up phone call by a nurse will be made the day after your procedure.?? If you have stayed with us over night, you will not be receiving a follow-up phone call. ? Nausea and vomiting are a common side effect of prescription pain medication.?? We recommend that pills are not taken on an empty stomach.?? While taking any prescription pain medication you should not drive or drink alcohol. ? * Maryellen Sawant: PERFORM Event Display: Patient Education Leaflets Authored Date: [id number] Having Laparoscopic Cholecystectomy ?? [id number] Having Laparoscopic Cholecystectomy You???ve had painful attacks caused by gallstones. Because of this, you are having surgery to remove your gallbladder. This is called??cholecystectomy.??A method called laparoscopy will be used. Thisallows surgery to be done through a few small cuts (incisions). Possible incision sites. Before your surgery ??? Tell your provider what medicines you take. This includes prescription medicines, vvrp-uhv-przphwm medicines, illegal drugs, herbs, vitamins, and other supplements. Be sure tomention if you take prescription blood thinners. This includes warfarin, clopidogrel, ibuprofen, and aspirin. You may be asked to stop taking certain medicines several days before surgery. ??? If youdrink alcohol, tell your provider how much you drink.??This is very important if you are a heavy drinker or have had alcohol withdrawal symptoms in the past.??Alcohol withdrawal can be dangerous. Butthe symptoms can be safely managed if your healthcare provider knows your alcohol history. ??? Haveany tests your provider asks for, such as blood and urine tests and an electrocardiogram (ECG). ???Don???t eat or drink after midnight the night before your surgery. This includes water, coffee, andmints. ??? Wash with a special scrub, if you are told to do so. ?? The day of surgery ??? Your provider may have you take your normal medicine with a sip of water. Check with your provider.?? When you arrive, you will prepare for surgery: ??? An IV (intravenous) line will be put into a veinin your arm or hand. This IV line is the way you are given fluids and medicine. ??? An anesthesiologist will talk with you about anesthesia. This is medicine used to prevent pain. You will receive general anesthesia. This puts you into a deep sleep-like state through the procedure. ?? During laparoscopic surgery For this surgery, a thin tube with a tiny camera is used. This is called a??laparoscope. The scope sends images from inside your body to a video screen. This lets the surgeon view and work on your gallbladder: ??? Small incisions are made in your belly (abdomen). The scope is put through 1 of the incisions. Surgical tools are put through other incisions. ??? Small clips are used to close off the connectionbetween the gallbladder and the bile duct. The gallbladder is then detached from the liver. ??? Thegallbladder is removed through 1 of the incisions. Bile still flows from the liver to the small intestine. ??? When the surgery is done, all tools are removed. Incisions are closed with stitches (sutures), surgical glue, or deena.?? Sometimes, a laparoscopic surgery may need to be changed to an open surgery. This method uses 1 large incision. This change may happen because of scar tissue, unusual anatomy, or for some other unexpected reason. ?? After surgery You will be sent to the post-anesthesia care unit (PACU) to be closely monitored. You will likely go home the same day. In some cases, an overnight stay is needed. When you are released to go home, have a family member or friend ready to drive you. ?? Risks of this surgery All surgeries have risks. The risks of gallbladder surgery include: ??? Bleeding ??? Infection ??? Injury to the common bile duct or nearby organs ??? Blood clots in the legs ??? Bile leaks ??? Hernia at the incision site ??? Pneumonia ?? Last Reviewed Date: 2021 ?? [id number] [employer]. All rights reserved. This information is not intended as a substitute for professional medical care. Always follow your healthcare professional's instructions. ?? Patient Care team information Care Team Personnel Name: Jacobo Angel MD Position: [facility] Resident Member Role: PCP Address: Address: [address] [place] [address]- Name: Peter Li MD Position: [facility] CERTIFIED MEDICINE AIDE Member Role: [employer] CERTIFIED MEDICINE AIDE Physician Address: Address: [address] [place] [address] [facility], [place], [place] [address] Care Team Related Persons Name: CAN ELMORE Address: [address] Address: [address] [place] [address] Name: AMANDA HANEY Address: [address] [place] [address] Name: HECTOR GILLILAND Address: [address] [place] [address] Name: MACIE BOUDREAUX Address: [address] Address: home [address] [place] [address] [place] Name: PRISCILACHETNALAYTON Address: [place] [address]
--- OUTSIDE RECORDS SUMMARY | 2024-03-25 08:21 | XMS_ITS | Continuity of Care Document ---
Author Organization [facility] Address [address] [place] [address] [address] [place] [address]- Care Team Providers Care Geoscientist Name Role Phone Jacobo Angel MD Primary Care Physician Encounter [facility] [place] [place] Date(s): 08/21/23 - 10/16/[address] [place] [address]- Attending Physician: Neal Mayberry MD Allergies, Adverse [...] Vaccine (old term) 99 Given 1Result Comment: [id number] 2Result Comment: [id number] 3Result Comment: VIS GIVEN 04/04/11 4Result Comment: [...] Team Personnel Name: Jacobo Angel MD Position: [facility] Resident Member Role: PCP Address: Address: [address] [place] [address] [place] [address]- Name: Peter Li MD Position: [facility] CHOIR TEACHER MD Member Role: Lifetime CHOIR TEACHER Physician Address: Address: [address] [place] [address] [facility], [place] [address]- Care Team Related Persons Name: CAN ELMORE Address: [address] Address: [address] [place] [address] [place] Name: AMANDA HANEY Address: [address] [place] [address] Name: HECTOR GILLILAND Address: [address] [place] [address] Name: MACIE BOUDREAUX Address: [address] Address: [address] [place] [address] [place] Name: LAYTON COHN Address: [address] [place] [address]
--- OUTSIDE RECORDS SUMMARY | 2024-03-25 08:21 | XMS_ITS | Continuity of Care Document ---
Author Organization [facility] Address [address] [place] [address]- Care Team Providers Care Hockey Scout Name Role Phone Jacobo Angel MD Primary [facility] Phys[facility] - 08/13/[address] [address] Attending Physician: Not on Staff, Attending MD [...] Vaccine (old term) 99 Given 1Result Comment: [id number] 2Result Comment: 40043-420-29 3Result Comment: VIS GIVEN 04/04/11 4Result Comment: [...] Team Personnel Name: Jacobo Angel MD Position: [facility] Resident Member Role: PCP Address: Address: [address] [place] [address] [place] [address]- Name: Peter Li MD Position: [facility] CATERERS HELPER MD Member Role: Lifetime CATERERS HELPER Physician Address: Address: [address] [place] [address] [facility], [place] [address]- Care Team Related Persons Name: CAN ELMORE Address: [address] Address: [address] [place] [address] [place] Name: AMANDA HANEY Address: [address] [place] [address] Name: HECTOR GILLILAND Address: [address] [place] [address] Name: MACIE BOUDREAUX Address: [address] Address: [address] [place] [address] [place] Name: LAYTON COHN Address: [address] [place] [address]
--- OUTSIDE RECORDS SUMMARY | 2024-03-25 08:21 | XMS_ITS | Continuity of Care Document ---
Author Organization [facility] Address [address] [place] [address] [address] [place] [address]- Care Team Providers Care Soubrette Name Role Phone Jacobo Angel MD Primary Care Physician [facility] Date(s): 11/26/23 - 12/03/[address] [place], [place] [address] Attending Physician: Not on Staff, Attending [...] Vaccine (old term) 99 Given 1Result Comment: 00301-518-54 2Result Comment: 16514-426-86 3Result Comment: VIS GIVEN 04/04/11 4Result Comment: [...] recent to oldest [Reference Range]: 1 Height 158 cm (11/26/23 10:00 AM) Weight 85.9 kg (11/26/23 10:00 AM) Pulse Rate [55-90 bpm] 76 bpm (11/26/23 10:00 AM) Body Mass Index [18.5-24.99 kg/m2] 34.41 kg/m2 *>HHI* (11/26/23 10:00 AM) Blood Pressure [90-138/55-84 mm Hg] 119/ 75mm Hg (11/26/23 10:00 AM) Temperature [96.8-100.4 DegF] 97.6 DegF (11/26/23 10:00 AM) Blood pressure sites Arm, left (11/26/23 10:00 AM) Temperature Route Temporal (11/26/23 10:00 AM) Social History Social History Type Response Smoking Status Never smoker; Tobacc o user in household: No entered on: 01/26/18 Sex Patient Care team information Care Team Personnel Name: Jacobo Angel MD Position: [facility] Resident Member Role: PCP Address: Address: [address] [place] [address]- Name: Peter Li MD Position: [facility] ECONOMIC ADVISER MD Member Role: Lifetime ECONOMIC ADVISER Physician Address: Address: [address] [place] [address] [facility], [place] [address]- Care Team Related Persons Name: CAN ELMORE Address: [address] Address: [address] [place] [address] [place] Name: AMANDA HANEY Address: [address] [place] [address] Name: HECTOR GILLILAND Address: [address] [place] [address] Name: MACIE BOUDREAUX Address: [address] Address: [address] [place] [address] [place] Name: LAYTON COHN Address: [address] [place] [address]
--- OUTSIDE RECORDS SUMMARY | 2024-03-25 08:21 | XMS_ITS | Continuity of Care Document ---
Author Organization [facility] Address [address] [place] [address]- Care Team Providers Care Urinalysis Technician Name Role Phone Jacobo Angel MD Primary Care Physician [facility] 09/25/23 - 11/01/23 [facility] [address] [place] [phone] Attending Physician: Not on Staff, Attending MD [...] Vaccine (old term) 99 Given 1Result Comment: 48488-298-78 2Result Comment: 98605-479-80 3Result Comment: VIS GIVEN 04/04/11 4Result Comment: [...] CAMPUS Resident Member Role: PCP Address: Address: [address] [place] [address] [place] [address]- Name: Peter Li MD Position: [facility] TRAVEL TRAILER COMPONENTS ASSEMBLER MD Member Role: Lifetime TRAVEL TRAILER COMPONENTS ASSEMBLER Physician Address: Address: [address] [place] [address] [facility], [place] [address]- Care Team Related Persons Name: CAN ELMORE Address: [address] Address: [address] [place] [address] [place] Name: AMANDA HANEY Address: [address] [place] [address] Name: HECTOR GILLILAND Address: [address] [place] [address] Name: MACIE BOUDREAUX Address: [address] Address: [address] [place] [address] [place] Name: LAYTON COHN Address: [address] [place] [address]
--- OUTSIDE RECORDS SUMMARY | 2024-03-25 08:22 | XMS_ITS | Continuity of Care Document ---
Author Organization [facility] Address [address] [place] [address] [address] [place] [address]- Care Team Providers Care Canvas Cutter Hand Name Role Phone Jacobo Angel MD Primary Care Physician [facility](s): 08/20/23 - 09/19/[address] [place], [place] [address] Allergies, Adverse Reactions, Alerts No Known Medication [...] Vaccine (old term) 99 Given 1Result Comment: [id number] 2Result Comment: 15060-815-67 3Result Comment: VIS GIVEN 04/04/11 4Result Comment: [...] Team Personnel Name: Jacobo Angel MD Position: [facility] Resident Member Role: PCP Address: Address: [address] [place] [address] [place] [address]- Name: Peter Li MD Position: [facility] ANGLE BENDER MD Member Role: Lifetime ANGLE BENDER Physician Address: Address: [address] [place] [address] [facility], [place] [address]- Care Team Related Persons Name: CAN ELMORE Address: [address] Address: [address] [place] [address] [place] Name: AMANDA HANEY Address: [address] [place] [address] Name: HECTOR GILLILAND Address: [address] [place] [address] Name: MACIE BOUDREAUX Address: [address] Address: [address] [place] [address] [place] Name: LAYTON COHN Address: [address] [place] [address]
--- OUTSIDE RECORDS SUMMARY | 2024-03-25 08:22 | XMS_ITS | Continuity of Care Document ---
Author Organization [facility] Address [address] [place] [address]- Care Team Providers Care Energy Assistant Name Role Phone Jacobo Angel MD Primary Care Physician Encounter [facility] Date(s): 08/07/23 - 09/06/[address] [address] Attending Physician: Howard Ledbetter Admitting Physician: AdmHoward fountain Referring Physician: Admtr Ar8 Allergies, Adverse Reactions, Alerts No Known Medication [...] Vaccine (old term) 99 Given 1Result Comment: 43145-716-78 2Result Comment: 23084-807-48 3Result Comment: VIS GIVEN 04/04/11 4Result Comment: [...] Team Personnel Name: Jacobo Angel MD Position: [facility] Resident Member Role: PCP Address: Address: [address] [place] [address] [place] [address]- Name: Peter Li MD Position: [facility] ELEVATOR REPAIRER HELPER MD Member Role: Lifetime ELEVATOR REPAIRER HELPER Physician Address: Address: [address] [place] [address] [facility], [place] [address]- Care Team Related Persons Name: CAN ELMORE Address: [address] Address: [address] [place] [address] [place] Name: AMANDA HANEY Address: [address] [place] [address] Name: HECTOR GILLILAND Address: [address] [place] [address] Name: MACIE BOUDREAUX Address: [address] Address: [address] Name: LAYTON COHN Address: [place] [address]
--- OUTSIDE RECORDS SUMMARY | 2024-03-25 08:22 | XMS_ITS | Continuity of Care Document ---
Author Organization [facility] Address [address] [place] [address]- Care Team Providers Care Rejoiner Name Role Phone Jacobo Angel MD Primary Care Physician [facility]): 09[facility]07/23 - 10/25/23 [facility] [address] [place] [phone] Attending Physician: Werner Weathers MD Admitting Physician: [...] Vaccine 08/16/19 Recorded Human Papillomavirus Vaccine 4 9/2/15 Given Human Papillomavirus Vaccine 5 02/08/14 Given [...] Vaccine (old term) 99 Given 1Result Comment: 43824-663-08 2Result Comment: 92994-741-39 3Result Comment: VIS GIVEN 04/04/11 4Result Comment: [...] Team Personnel Name: Jacobo Angel MD Position: [facility] Resident Member Role: PCP Address: Address: [address] [place] [address]- Name: Peter Li MD Position: [facility] FUEL ASSEMBLER MD Member Role: Lifetime FUEL ASSEMBLER Physician Address: Address: [address] [place] [address] [facility], [address] Care Team Related Persons Name: CAN ELMORE Address: [address] Address: [address] [place] [address] [place] Name: AMANDA HANEY Address: [address] [place] [address] Name: HECTOR GILLILAND Address: [address] [place] [address] Name: MACIE BOUDREAUX Address: [address] Address: [address] [place] [address] [place] Name: LAYTON COHN Address: [address] [place] [address]
--- OUTSIDE RECORDS SUMMARY | 2024-03-25 08:22 | XMS_ITS | Continuity of Care Document ---
Author Organization [facility] Address [address] [place] [address] [address] [place] [address]- Care Team Providers Care Network Intelligence Analyst Name Role Phone Jacobo Angel MD Primary Care Physician Encounter [facility] Date(s): 09/04/23 - 10/04/23 [facility] [address] [place] [address]- Allergies, Adverse Reactions, Alerts No Known Medication [...] Vaccine (old term) 99 Given 1Result Comment: 51131-036-29 2Result Comment: 25633-226-25 3Result Comment: VIS GIVEN 04/04/11 4Result Comment: [...] CENTER Resident Member Role: PCP Address: Address: [address] [place] [address] [place] [address]- Name: Peter Li MD Position: [facility] MASONRY SUPERVISOR MD Member Role: Lifetime MASONRY SUPERVISOR Physician Address: Address: [address] [place] [address] [facility], [place] [address]- Care Team Related Persons Name: CAN ELMORE Address: [address] Address: [address] [place] [address] [place] Name: AMANDA HANEY Address: [address] [place] [address] Name: HECTOR GILLILAND Address: [address] [place] [address] Name: MACIE BOUDREAUX Address: [address] Address: [address] [place] [address] [place] Name: LAYTON COHN Address: [address] [place] [address]
--- OUTSIDE RECORDS SUMMARY | 2024-03-25 08:22 | XMS_ITS | Continuity of Care Document ---
Author Organization [facility] Address [address] [place] [address] [address] [place] [address]- Care Team Providers Care Uniform Attendant Name Role Phone Jacobo Angel MD Primary Care Physician [facility]s): 11/26/23 - 12/26/[address] [place], [place] [address] Attending Physician: AdmHoward fountain Admitting Physician: AdmtrHoward Referring Physician: Admtr, Ar8 [...] Vaccine (old term) 99 Given 1Result Comment: 47605-854-89 2Result Comment: [phone] 3Result Comment: VIS GIVEN 04/04/11 4Result Comment: [...] Care team information Care Team Personnel Name: Jacoob Angel MD Position: [facility] Resident Member Role: PCP Address: Address: [address] [facility] [place] [address]- Name: Peter Li MD Position: [facility] VERTICAL BORING MILL OPERATOR MD Member Role: Lifetime VERTICAL BORING MILL OPERATOR Physician Address: Address: [address] [facility] VERTICAL BORING MILL OPERATOR [place], [place] [address] Care Team Related Persons Name: CAN ELMORE Address: [address] Address: [address] [place] [address] [place] Name: AMANDA HANEY Address: [address] [place] [address] Name: HECTOR GILLILAND Address: [address] [place] [address] Name: MACIE BOUDREAUX Address: [address] Address: [address] [place] [address] [place] Name: LAYTON COHN Address: [address] [place] [address]
--- OUTSIDE RECORDS SUMMARY | 2024-03-25 08:23 | XMS_ITS | Continuity of Care Document ---
Author Organization [facility] Address [address] [place] [address] [address] [place] [address]- Care Team Providers Care Precipitator Operator Name Role Phone Jacobo Angel MD Primary Care Physician Encounter [facility] Date(s): 09/16/23 - 10/16/[address] [place], [place] [address] Attending Physician: Admtr, David8 Admitting Physician: Admtr, Ar8 Referring Physician: Admtr, [...] Vaccine (old term) 99 Given 1Result Comment: 78323-572-43 2Result Comment: 20088-456-62 3Result Comment: VIS GIVEN 04/04/11 4Result Comment: [...] opioid drug., 158, cm, 06/02/23... Start Date: 12/12/23 Status: Ordered Problem List Condition Confirmation Course [...] Team Personnel Name: Jacobo Angel MD Position: [facility] Resident Member Role: PCP Address: Address: [address] [place] [address]- Name: Peter Li MD Position: [facility] FRUIT HARVEST MACHINE OPERATOR MD Member Role: Lifetime FRUIT HARVEST MACHINE OPERATOR Physician Address: Address: [address] [place] [address] [facility], [place] [address]- Care Team Related Persons Name: CAN ELMORE Address: [address] Address: [address] [place] [address] [place] Name: AMANDA HANEY Address: [address] [place] [address] Name: HECTOR GILLILAND Address: [address] [place] [address] Name: MACIE BOUDREAUX Address: [address] Address: [address] [place] [address] [place] Name: LAYTON COHN Address: [address] [place] [address]
--- OUTSIDE RECORDS SUMMARY | 2024-03-25 08:23 | XMS_ITS | Continuity of Care Document ---
Author Organization [facility] Address [address] [place] [address]- Care Team Providers Care Survey Associate Name Role Phone Jacobo Angel MD Primary [facility] Physician [facility]s): 07/15/23 - 08/26/[address] [address] Attending Physician: Not on Staff, Attending MD [...] Vaccine (old term) 99 Given 1Result Comment: 16138-967-46 2Result Comment: [phone] 3Result Comment: VIS GIVEN 04/04/11 4Result Comment: [...] Team Personnel Name: Jacobo Angel MD Position: [facility] Resident Member Role: PCP Address: Address: [address] [place] [address] [place] [address]- Name: Peter Li MD Position: [facility] GLUING MACHINE OPERATOR MD Member Role: Lifetime GLUING MACHINE OPERATOR Physician Address: Address: [address] [place] [address] [facility], [place] [address]- Care Team Related Persons Name: CAN ELMORE Address: [address] Address: [address] [place] [address] [place] Name: AMANDA HANEY Address: [address] [place] [address] Name: HECTOR GILLILAND Address: [address] [place] [address] Name: MACIE BOUDREAUX Address: [address] Address: [address] [place] [address] [place] Name: LAYTON COHN Address: [address] [place] [address]
--- OUTSIDE RECORDS SUMMARY | 2024-03-25 08:23 | XMS_ITS | Continuity of Care Document ---
Author Organization [facility] Address [address] [place] [address] [address] [place] [address]- Care Team Providers Care Senior Associate Name Role Phone Jacobo Angel MD Primary Care Physician [place] [facility] Date(s): 08/10/23 - 08/17/[address] [place] [address]- Attending Physician: Neal Mayberry MD Referring Physician: Not on Staff, Referring [...] Vaccine (old term) 99 Given 1Result Comment: [id number] 2Result Comment: [phone] 3Result Comment: VIS GIVEN 04/04/11 4Result Comment: [...] oldest [Reference Range]: 1 Height 158 cm (08/10/23 11:00 AM) Weight 84.3 kg (08/10/23 11:00 AM) Pulse Rate [55-90 bpm] 78 bpm (08/10/23 11:00 AM) Body Mass Index [18.5-24.99 kg/m2] 33.77 kg/m2 *>HHI* (08/10/23 11:00 AM) Blood Pressure [90-138/55-84 mm Hg] 112/ 73mm Hg (08/10/23 11:00 AM) Temperature [96.8-100.4 DegF] 96.5 DegF *L* (08/10/23 11:00 AM) Blood pressure sites Arm, left (08/10/23 11:00 AM) Temperature Route Temporal (08/10/23 11:00 AM) Social History Social History Type Response Smoking Status Never smoker; Tobacc o user in household: No entered on: 01/26/18 Sex Patient Care team information Care Team Personnel Name: Jacobo Angel MD Position: [facility] Resident Member Role: PCP Address: Address: [address] [place] [address]- Name: Peter Li MD Position: [facility] REHAB CONSULTANT MD Member Role: Lifetime REHAB CONSULTANT Physician Address: Address: [address] [place] [address] [facility], [place] [address]- Care Team Related Persons Name: CAN ELMORE Address: [address] Address: [address] [place] [address] [place] Name: AMANDA HANEY Address: [address] [place] [address] Name: HECTOR GILLILAND Address: [address] [place] [address] Name: MACIE BOUDREAUX Address: [address] Address: [address] [place] [address] [place] Name: LAYTON COHN Address: [address] [place] [address]
--- OUTSIDE RECORDS SUMMARY | 2024-03-25 08:23 | XMS_ITS | Continuity of Care Document ---
Author Organization [facility] Address [address] [place] [address]- Care Team Providers Care Supervisory Investigative Specialist Name Role Phone Jacobo Angel MD Primary Care Physician [phone] Encounter [facility] Date(s): 01/23/24 - 01/24/[address] [address]- Discharge Disposition: A-D/C Walkout Attending Physician: Not on Staff, Attending MD Admitting Physician: Not on Staff, Admitting MD Referring Physician: Not on Staff, Referring [...] Vaccine (old term) 99 Given 1Result Comment: [id number] 2Result Comment: [phone] 3Result Comment: VIS GIVEN 04/04/11 4Result Comment: [...] oldest [Reference Range]: 1 Height 158 cm (01/23/24 11:05 PM) Weight 84 kg (01/23/24 11:05 PM) Oxygen Saturation [94-100 %] 98 % (01/23/24 11:05 PM) Pulse Rate [55-90 bpm] 69 bpm (01/23/24 11:05 PM) Body Mass Index [18.5-24.99 kg/m2] 33.65 kg/m2 *>HHI* (01/23/24 11:05 PM) Blood Pressure [90-138/55-84 mm Hg] 111/ 71mm Hg (01/23/24 11:05 PM) Respiratory Rate [16-30 br/min] 16 br/mi n (01/23/24 11:05 PM) Temperature [96.8-100.4 DegF] 98.7 DegF (01/23/24 11:05 PM) Mode of Delivery (Oxygen) Room air (01/23/24 11:05 PM) Blood pressure sites Arm, left (01/23/24 11:05 PM) Temperature Route Oral (01/23/24 11:05 PM) Dry Weight 84 kg (01/23/24 11:05 PM) Weight Obtained Via Standing scale (01/23/24 11:05 PM) Dry Weight Obtained Via Standing scale (01/23/24 11:05 PM) Social History Social History Type Response Smoking Status Never smoker; Tobacc o user in household: No entered on: 01/26/18 Sex Patient Care team information Care Team Personnel Name: Jacobo Angel MD Position: [facility] Resident Member Role: PCP Address: Address: [address] [facility] Adult [address] Name: Peter Li MD Position: [facility] ALL SOURCE INTELLIGENCE MD Member Role: Lifetime ALL SOURCE INTELLIGENCE Physician Address: Address: [address] [facility] ALL SOURCE INTELLIGENCE [address] Care Team Related Persons Name: CAN ELMORE Address: [address] Address: [address] Name: AMANDA HANEY Address: [address] [place] [address] Name: HECTOR GILLILAND Address: [address] [place] [address] Name: MACIE BOUDREAUX Address: [address] Address: [place] [address] [place] Name: LAYTON COHN Address: home [address] [place] [address]
--- OUTSIDE RECORDS SUMMARY | 2024-03-25 08:23 | XMS_ITS | Continuity of Care Document ---
Author Organization [facility] Address [address] [place] [address]- Care Team Providers Care Real Estate Processor Name Role Phone Jacobo Angel MD Primary Care Physician [phone] [facility]): 10[facility]23 - 11/01/23 [facility] [address] [place] [phone] Attending Physician: Howard Ledbetter Admitting Physician: AdmtrHoward Referring Physician: Admtr, ArBrionna Allergies, Adverse Reactions, Alerts No Known Medication [...] Vaccine (old term) 99 Given 1Result Comment: [phone] 2Result Comment: 25279-312-70 3Result Comment: VIS GIVEN 04/04/11 4Result Comment: [...] Team Personnel Name: Jacobo Angel MD Position: [facility] Resident Member Role: PCP Address: Address: [address] [place] [address]- Name: Peter Li MD Position: [facility] FACULTY RESEARCH PHYSICIAN MD Member Role: Lifetime FACULTY RESEARCH PHYSICIAN Physician Address: Address: [address] [place] [address] [facility], [place], [place] [address] Care Team Related Persons Name: CAN ELMORE Address: [address] Address: [address] [place] [address] [place] Name: AMANDA HANEY Address: [address] [place] [address] Name: HECTOR GILLILAND Address: [address] [place] [address] Name: MACIE BOUDREAUX Address: [address] Address: [address] [place] [address] [place] Name: LAYTON COHN Address: [address] [place] [address]
--- NOTE | 2024-03-25 11:29 | A.OFFVIS_ITS ---
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: Details: Start time: 11.16am, End time: 11.58am ?I spent 37 minutes speaking with the patient on the phone plus an additional 5 minutes reviewing and updating records for a total of 42 minutes HPI Comments Details: Previous weight loss efforts: Keto diet, intermittent fasting Wakes up: 8am, Sleeps: 12am Breakfast: x3-4/wk 11am: eggs with pancakes or omani toast) Lunch: skips Dinner: 8pm (chicken with gravy, rice and chicken wings) Snacks: 4pm (chips, Chobani yogurt with nuts) Exercise: none Fluids: Coffee: none, hot tea: 1 cup x3/wk, soda: Pepsi, juice: daily, ETOH: 2/month PFSH Medical History (Updated 03/25/24 @ 11:50 by Omid Knapp MD) Back pain GERD (gastroesophageal reflux disease) BMI 35.0-35.9,adult Obesity Gallstones Surgical History (Updated 02/26/24 @ 12:01 by Amparo Jean CMA) Hx laparoscopic cholecystectomy Family History (Updated 02/26/24 @ 12:02 by Amparo Jean CMA) Mother No problems noted. Father Diabetes Daughter No problems noted. Daughter No problems noted. Social History (Updated 02/26/24 @ 12:03 by Amparo Jean CMA) Alcohol intake: current Alcohol intake frequency: holidays/special occasions only Patient Tobacco Use Status: Never used Tobacco Physical Exam Vital Signs: BMI result Body Mass Index 35.4 Telehealth Telehealth Telehealth Platform: Telephone Location of provider rendering services: practice address Location of patient: address on file Patient Identification confirmed using: Name, : Yes Telehealth method: voice only Patient verbally consented to treatment: Yes Patient verbally consented to billing insurance company: Yes Patient informed of any privacy concerns related to visit: Yes Minutes spent on Phone/Video with Pt.: 42 Assessment & Plan Assessment & Plan (1) Obesity: Code(s): E66.9 - Obesity, unspecified Category: Medical Qualifiers: Body mass index: BMI 35.0-35.9 Obesity classification: adult class 2 (BMI 35 - 39.9) Obesity type: due to excess calories Serious obesity comorbidity presence: without serious comorbidity Qualified Code(s): E66.812 - Obesity, class 2; E66.09 - Other obesity due to excess calories; Z68.35 - Body mass index [BMI] 35.0-35.9, adult Plan: 1.? Plan for lap sleeve gastrectomy. If diaphragmatic or ventral hernias are present at time of surgery, these will be repaired laparoscopically as well. Risks and complications include possible conversion to an open procedure, anastomotic leak, bleeding requiring transfusion, small bowel obstruction, , DVT and pulmonary embolism, cardiac, or pulmonary complications, as retirement complications such as anastomotic ulcer, insufficient weight loss and vitamin deficiencies. I emphasized the importance of close follow-up, adherence to instructions and good communication. 2. You will receive a link of our software kenan to generate an individualized nutritional and exercise plan specific for you. Please send me a screenshot of the plans you will generate Meal to include lean meat (beef, fish, pork, turkey, chicken), or haitian yogurt, or egg whites, or beans with a salad with olive oil and fruits (berries, pears, apples, kiwi). Avoid salt, breads, potatoes, rice, pasta, desserts. ?3. If you choose shakes, each shake would be drunk slowly, like coffee in a period of 2 hours. ?4. If you choose bars, cut each bar in 4 pieces and eat each piece in 30min ?to make each bar last 2 hours. ?5. I emphasized the importance of measuring accurately the food portion and measure it when serving the food in plate ?6. The meal portions include a specific number of forks of meat and salad. You always eat the meat portion but you can replace up to half of salad/vegetables portion with rice, potatoes or pasta, or a fruit ?if you like. The less you do it the better weight loss will be. ?7. One full-size fork is what it can be scooped on the fork without falling aside and not what can be bit with the fork. Use regular forks like those you find in a typical restaurant. ?8.? Please send me weight measurements as soon as possible and then once a week. Always include your diet and exercise plan. 9. The best choice would be to purchase a stationary bike, elliptical or treadmill at home that can track calories. Let me know if you do so I can give you an exercise plan. ?10.?It is important of avoiding and for at least 18 months postoperatively and has been discussed at the infosession. ?11. Goal is to lose at least 1.5-2lbs per week ?12. Goal to lose 10% of your weight before surgery, which is about 19lbs. Ultimate weight goal: 174lbs before surgery 13. Please follow the diet plan exactly without any change. If you don't like something about the plan or you feel hungry you need to communicate with me so I can help you revise the plan. You should not change the plan yourself. 14. To be scheduled for EGD due to history of GERD. The possibility of biopsies was discussed. Patient needs to avoid use of NSAIDs and aspirin for 1 week prior to EGD. Risks of perforation and bleeding was discussed with the patient. This will be an outpatient procedure with IV sedation. Orders: Orders Insulin Today E66.9 - Obesity, unspecified, K21.9 - Gastro-esophageal reflux disease without esophagitis, Z68.35 - Body mass index [BMI] 35.0-35.9, adult H Pylori Breath Test Today E66.9 - Obesity, unspecified, K21.9 - Gastro- esophageal reflux disease without esophagitis, Z68.35 - Body mass index [BMI] 35.0-35.9, adult IRON PROFILE Today E66.9 - Obesity, unspecified, K21.9 - Gastro-esophageal reflux disease without esophagitis, Z68.35 - Body mass index [BMI] 35.0-35.9, adult Comprehensive Met. Panel Today E66.9 - Obesity, unspecified, K21.9 - Gastro- esophageal reflux disease without esophagitis, Z68.35 - Body mass index [BMI] 35.0-35.9, adult Zinc Today E66.9 - Obesity, unspecified, K21.9 - Gastro-esophageal reflux disease without esophagitis, Z68.35 - Body mass index [BMI] 35.0-35.9, adult Vitamin B1 Today E66.9 - Obesity, unspecified, K21.9 - Gastro-esophageal reflux disease without esophagitis, Z68.35 - Body mass index [BMI] 35.0-35.9, adult Vitamin A Today E66.9 - Obesity, unspecified, K21.9 - Gastro-esophageal reflux disease without esophagitis, Z68.35 - Body mass index [BMI] 35.0-35.9, adult TSH reflex Free T4 Today E66.9 - Obesity, unspecified, K21.9 - Gastro- esophageal reflux disease without esophagitis, Z68.35 - Body mass index [BMI] 35.0-35.9, adult Ferritin Today E66.9 - Obesity, unspecified, K21.9 - Gastro-esophageal reflux disease without esophagitis, Z68.35 - Body mass index [BMI] 35.0-35.9, adult Vitamin D 25-OH Total Today E66.9 - Obesity, unspecified, K21.9 - Gastro- esophageal reflux disease without esophagitis, Z68.35 - Body mass index [BMI] 35.0-35.9, adult US abdomen comp w elastography Today E66.9 - Obesity, unspecified, K21.9 - Gastro-esophageal reflux disease without esophagitis, Z68.35 - Body mass index [BMI] 35.0-35.9, adult XR chest 2V Today E66.9 - Obesity, unspecified, K21.9 - Gastro-esophageal reflux disease without esophagitis, Z68.35 - Body mass index [BMI] 35.0-35.9, adult Hemoglobin A1c Today E66.9 - Obesity, unspecified, K21.9 - Gastro-esophageal reflux disease without esophagitis, Z68.35 - Body mass index [BMI] 35.0-35.9, adult Complete Blood Count Auto Diff Today E66.9 - Obesity, unspecified, K21.9 - Gas tro-esophageal reflux disease without esophagitis, Z68.35 - Body mass index [BMI] 35.0-35.9, adult Lipid Panel Today E66.9 - Obesity, unspecified, K21.9 - Gastro-esophageal reflux disease without esophagitis, Z68.35 - Body mass index [BMI] 35.0-35.9, adult Vitamin B12 and Folate Today E66.9 - Obesity, unspecified, K21.9 - Gastro- esophageal reflux disease without esophagitis, Z68.35 - Body mass index [BMI] 35.0-35.9, adult C Reactive Protein Today E66.9 - Obesity, unspecified, K21.9 - Gastro- esophageal reflux disease without esophagitis, Z68.35 - Body mass index [BMI] 35.0-35.9, adult ECG 12 lead EKG Today E66.9 - Obesity, unspecified, K21.9 - Gastro-esophageal reflux disease without esophagitis, Z68.35 - Body mass index [BMI] 35.0-35.9, adult FL upper GI w air Today E66.9 - Obesity, unspecified, K21.9 - Gastro-esophageal reflux disease without esophagitis, Z68.35 - Body mass index [BMI] 35.0-35.9, adult Referrals Behavioral Health Referral E66.9 - Obesity, unspecified, K21.9 - Gastro-esophageal reflux disease without esophagitis, Z68.35 - Body mass index [BMI] 35.0-35.9, adult Nutrition/Dietitian Referral E66.9 - Obesity, unspecified, K21.9 - Gastro- esophageal reflux disease without esophagitis, Z68.35 - Body mass index [BMI] 35.0-35.9, adult
[2024-03-25 11:39] VITALS: BMI 35.4
== END 2024-03-25 11:59 | disposition home or self-care (01) ==
LOC: HO.HBS 08:18
PROVIDERS: Visit Provider Surgery
DX: E66.812 Obesity, class 2 (principal); E66.09 Other obesity due to excess calories; Z68.35 Body mass index [BMI] 35.0-35.9, adult
CPT/HCPCS: 99203

== ENCOUNTER → 2024-03-25 08:18 | Outpatient (BNVA) | payer OTHER, SELFPAY | PROVIDERS: Visit Provider Surgery ==

== ENCOUNTER 2024-11-16 01:34 | Emergency (ER) | payer OTHER, SELFPAY ==
[2024-11-16 01:37] VITALS: BP 111/74; PULSE 92; RESP 16; TEMP 36.9; O2SAT 97; BMI 36.2
[2024-11-16 02:20] LABS: Basophils Percent Auto 0.3 % (0-2); Eosinophils Absolute Auto 0.1 X10*3/uL (0.0-0.4); Eosinophils Percent Auto 0.4 % (0-4); Hematocrit 34.2 % (37.0-47.0); Hemoglobin 11.6 g/dl (12.0-16.0); Imm Gran Abs Auto 0.05 X10*3/uL (0.00-0.03); Imm Gran Pct Auto 0.4 % (0.0-0.4); Lymphocytes Absolute Auto 1.3 X10*3/uL (1.2-4.9); Lymphocytes Percent Auto 10.1 % (20-40); MANUAL DIFF FLAG NO; Mean Corpuscular HGB Conc 33.9 g/dl (31.0-35.0); Mean Corpuscular Hemoglobin 29.3 pg (27.0-33.0); Mean Corpuscular Volume 86.4 fL (80.0-98.0); Mean Platelet Volume 7.9 fL (9.4-12.3); Monocytes Absolute Auto 0.8 X10*3/uL (0.1-1.2); Monocytes Percent Auto 5.9 % (2-11); Neutrophils Absolute Auto 10.8 x10*3/uL (2.0-8.3); Neutrophils Percent Auto 82.9 % (45-73); Platelet Count 347 X10*3/uL (160-400); Red Blood Count 3.96 X10*6/uL (4.20-5.50); Red Cell Distribution Width 12.6 % (11.0-16.0)
[2024-11-16 02:22] LABS: Appearance Urine Clear; Color Urine Dark Yellow; Glucose Urine UA Negative (Negative); Leukocyte Esterase Urine Negative (Negative); Nitrite Urine Negative (Negative); Specific Gravity - Urine >= 1.030 (1.005-1.025); UMIC TRIGGER UACC YES; Urine Blood Small (1+) (Negative); Urine Ketones 15 mg/dL (Negative); Urine Protein Trace mg/dL (Neg-Trace)
[2024-11-16 02:23] LABS: UPreg QC Valid YES; Urine Pregnancy NEGATIVE (NEGATIVE)
[2024-11-16 02:27] LABS: Bacteria Urine None Seen (None Seen); Hyaline Casts Urine 0-2 /LPF (0-2); WBC Urine 0-5 /HPF (0-5)
[2024-11-16 02:44] LABS: Alanine Aminotransferase 19 U/L (0-31); Albumin Level 4.1 g/dL (3.5-5.0); Alkaline Phosphatase 82 U/L (39-117); Anion Gap 12 (12-20); Aspartate Amino Transferase 24 U/L (5-31); Bilirubin Total 1.1 mg/dL (0.0-1.0); Blood Urea Nitrogen 11 mg/dL (9-16); Calcium 9.3 mg/dL (8.4-10.2); Carbon Dioxide 24 mmol/L (22-29); Chloride 105 mmol/L (96-108); Estimated Glomerular Filt Rate > 60; Glucose Random 114 mg/dL (60-115); Potassium 3.4 mmol/L (3.3-5.1); Sodium 138 mmol/L (135-145); Total Protein 6.8 g/dL (6.5-8.0)
[2024-11-16 02:57] LABS: Influenza A PCR NEGATIVE (Negative); Influenza B PCR NEGATIVE (Negative); Resp Syncy Virus RNA Qual PCR NEGATIVE (Negative); SARS COV2 PCR INHOUSE NEGATIVE (Negative)
[2024-11-16 03:54] VITALS: BP 100/64; PULSE 86; RESP 16; TEMP 37; O2SAT 98
[2024-11-16 05:53] VITALS: BP 96/61; PULSE 98; RESP 16; TEMP 37.2; O2SAT 98
[2024-11-16] MEDS: Acetaminophen 325 MG TABLET 650 MG PO (06:02)
--- NOTE | 2024-11-16 07:42 | ED.GENADULT ---
HPI - General Adult General Chief complaint: Nausea/Vomiting/Diarrhea Stated complaint: vomiting Time Seen by Provider: 11/16/24 07:10 Source: patient Mode of arrival: ambulatory Limitations: no limitations History of Present Illness HPI narrative: This is a 24-year-old woman with a past medical history of GERD, obesity, cholelithiasis status post cholecystectomy s/p cholecystectomy 2023 who presents for evaluation of nausea, vomiting diarrhea. Patient reports that she has been sick for the last 2 days. She reports nonbloody emesis and nonbloody stools. She states that her stepson who was sick with vomiting over the weekend. She states no objective fever or associated chills. She states no chest pain or dyspnea. She states no dysuria or urinary frequency/urgency. She states no hematuria. She states the generalized abdominal discomfort when vomiting and diarrhea. She states no abdominal pain at this time. She states initially she has been in the emergency room she is no longer vomiting or having diarrhea. She states that she has been able to drink carlos raina without subsequent vomiting or associated abdominal pain. Related Data Home Medications ?Medication ?Instructions ?Recorded ?Confirmed ibuprofen 200 mg capsule 200 mg PO Q6H PRN 03/25/24 03/25/24 omeprazole 20 mg capsule,delayed 20 mg PO DAILY 03/25/24 03/25/24 release Previous Rx's ?Medication ?Instructions ?Recorded ondansetron 4 mg disintegrating 4 mg PO Q8H PRN nausea and 11/16/24 tablet vomiting #10 tabs Allergies Allergy/AdvReac Type Severity Reaction Status Date / Time No Known Allergies Allergy Verified 11/16/24 01:38 [No Known Allergies*] Review of Systems Review of Systems: ROS as per HPI [facility] Past Medical History Medical History (Updated 11/16/24 @ 07:49 by Goldy Moody MD) Back pain GERD (gastroesophageal reflux disease) BMI 35.0-35.9,adult Obesity Gallstones Surgical History (Updated 02/26/24 @ 12:01 by Amparo Jean CMA) Hx laparoscopic cholecystectomy Family History Family History (Updated 02/26/24 @ 12:02 by Amparo Jean CMA) Mother No problems noted. Father Diabetes Daughter No problems noted. Daughter No problems noted. Social History Social History (Updated 02/26/24 @ 12:03 by Amparo Colon, JUTE BAG CUTTING MACHINE OPERATOR) Alcohol intake: current Alcohol intake frequency: holidays/special occasions only Patient Tobacco Use Status: Never used Tobacco Smoked in Last 30 Days: No Use of substances other than those prescribed or required for medical reasons: No Advance Directives: No Advance Directives Information Provided: No Do you have a plan to hurt others: No Plan Patient : No Physical Exam ED Vital Signs: Vital Signs - 24 hr 11/16/24 01:37 11/16/24 03:54 11/16/24 05:53 Temperature 98.5 F 98.6 F 99.0 F Pulse Rate 92 86 98 Respiratory Rate 16 16 16 Blood Pressure 111/74 100/64 96/61 Pulse Oximetry 97 98 98 Oxygen Delivery Method Room Air Room Air Room Air BMI result Body Mass Index 36.2 Gen: NAD, AOx3 HEENT: NCAT, EOMI, normal conjunctiva CV: RRR Pulm: CTAB, no increased work of breathing GI: Soft, NTND, no rebound, guarding or rigidity Neuro: Grossly non focal Medications Administered Discontinued Medications Generic Name Dose Route Start Last Admin Trade Name Freq PRN Reason Stop Dose Admin Acetaminophen 650 mg 11/16/24 05:59 11/16/24 06:02 Acetaminophen 325 Mg Tablet PO 11/16/24 06:00 650 mg ONCE ONE Administration Medical Decision Making Medical Decision Making [facility] Narrative: Differential diagnosis includes, but is not limited to viral syndrome, gastroenteritis, acute kidney injury electrolyte derangement. Patient is afebrile and hemodynamically stable on room air. Exam is benign and reassuring. Patient is clinically euvolemic. Considered IV fluids, but she is also tolerating oral intake. Patient is treated supportively with 4 mg p.o. Zofran ODT. I reviewed labs, urinalysis and viral panel as below On re-examination, patient is well-appearing and in no acute distress. ?Patient states symptoms have resolved. ?There is no indication for further emergent evaluation in this otherwise well-appearing patient as above. ?Patient is provided written and verbal instructions, educational materials, recommendations for outpatient follow-up, Zofran, strict return precautions and teach back is performed. ?Patient states understanding and agreement with plan of care. ?Patient is discharged home in stable and improved condition. Admission/Observation Consideration of admission/observation: Escalation of care including admission/observation considered Lab Data [facility] Lab Attestation statement: I reviewed the patient's lab results. CBC is notable for leukocytosis of 13.0, stable anemia of 11.6, metabolic panel reassuring with no electrolyte derangement, no evidence of acute kidney injury, no anion gap elevation to suggest starvation ketosis, LFTs unremarkable. There is mild elevation in total bilirubin of 1.1, which is likely nonspecific and stress related secondary to vomiting. Abdominal exam is reassuring and the patient states no abdominal pain so I have very low, suspicion for any acute biliary process. Urinalysis noncontributory. Viral panel negative 11/16/24 02:15 11/16/24 02:15 Labs: Lab Results 11/16/24 Range/Units 02:15 WBC 13.0 H (4.8-10.8) X10*3/uL RBC 3.96 L (4.20-5.50) X10*6/uL Hgb 11.6 L (12.0-16.0) g/dl Hct 34.2 L (37.0-47.0) % MCV 86.4 (80.0-98.0) fL MCH 29.3 (27.0-33.0) pg MCHC 33.9 (31.0-35.0) g/dl RDW 12.6 (11.0-16.0) % Plt Count 347 (160-400) X10*3/uL MPV 7.9 L (9.4-12.3) fL Immature Gran % (Auto) 0.4 (0.0-0.4) % Neut % (Auto) 82.9 H (45-73) % Lymph % (Auto) 10.1 L (20-40) % Prentiss % (Auto) 5.9 (2-11) % Eos % (Auto) 0.4 (0-4) % Baso % (Auto) 0.3 (0-2) % Lymph # (Auto) 1.3 (1.2-4.9) X10*3/uL Prentiss # (Auto) 0.8 (0.1-1.2) X10*3/uL Eos # (Auto) 0.1 (0.0-0.4) X10*3/uL Baso # (Auto) 0.0 (0.0-0.2) X10*3/uL Abs Immat Gran (auto) 0.05 H (0.00-0.03) X10*3/uL Absolute Neuts (auto) 10.8 H (2.0-8.3) x10*3/uL Absolute Nucleated RBC 0.000 (0.0-0.012) X10*3/uL Nucleated RBC % (auto) 0.0 (0.0-0.2) /100WBC Sodium 138 (135-145) mmol/L Potassium 3.4 (3.3-5.1) mmol/L Chloride 105 (96-108) mmol/L Carbon Dioxide 24 (22-29) mmol/L Anion Gap 12 (12-20) BUN 11 (9-16) mg/dL Creatinine 0.53 (0.5-1.4) mg/dL Estim Creat Clear Calc 169.0 Estimated GFR > 60 Random Glucose 114 (60-115) mg/dL Calcium 9.3 D (8.4-10.2) mg/dL Total Bilirubin 1.1 H (0.0-1.0) mg/dL AST 24 (5-31) U/L ALT 19 (0-31) U/L Alkaline Phosphatase 82 (39-117) U/L Total Protein 6.8 (6.5-8.0) g/dL Albumin 4.1 (3.5-5.0) g/dL Urine Color Dark Yellow Urine Appearance Clear Urine pH 6.0 (5.0-9.0) Ur Specific Berger >= 1.030 H (1.005-1.025) Urine Protein Trace (Neg-Trace) mg/dL Urine Glucose (UA) Negative (Negative) mg/dL Urine Ketones 15 (Negative) mg/dL Urine Blood Small (1+) H (Negative) Urine Nitrite Negative (Negative) Ur Leukocyte Esterase Negative (Negative) Urine RBC 6-10 H (0-2) /HPF Urine WBC 0-5 (0-5) /HPF Ur Squamous Epith Cells 3-5 (0-2) /HPF Urine Bacteria None Seen (None Seen) Hyaline Casts 0-2 (0-2) /LPF Urine Test NEGATIVE (NEGATIVE) Influenza Type A (PCR) NEGATIVE (Negative) Influenza Type B (PCR) NEGATIVE (Negative) RSV RNA Qual (PCR) NEGATIVE (Negative) SARS-CoV-2 RNA (RT-PCR) NEGATIVE (Negative) Discharge Plan Discharge Clinical Impression: Nausea, vomiting and diarrhea Patient Disposition: Home, Self-Care Instructions: Acute Nausea and Vomiting (ED) Additional Instructions: You were seen and evaluated in the emergency room. Your emergency re-evaluation was overall reassuring. You were given and antinausea medicine. You were given a prescription for an antinausea medicine. Please use as directed. Please follow-up with a primary care doctor in 1-2 weeks. Return to the emergency room with any new concerns or symptoms. Prescriptions: New ondansetron 4 mg tablet,disintegrating 4 mg PO Q8H PRN (Reason: nausea and vomiting) Qty: 10 0RF No Action ibuprofen 200 mg capsule 200 mg PO Q6H PRN omeprazole 20 mg capsule,delayed release(DR/EC) 20 mg PO DAILY Referrals: [facility] [place]] [facility]] Stand Alone Forms: Work/School Release Print Language: Serbian
[2024-11-16] MEDS: Ondansetron ODT 4 MG TAB.RAPDIS TRANSLINGU (07:55)
[2024-11-16 08:05] VITALS: BP 105/62; PULSE 77; RESP 15; TEMP 36.6; O2SAT 96
== END 2024-11-16 08:06 | disposition home or self-care (01) ==
PROVIDERS: Emergency Provider Emergency Medicine
DX: R11.2 Nausea with vomiting, unspecified (principal); R19.7 Diarrhea, unspecified; Z03.818 Encounter for observation for suspected exposure to other biological agents ruled out
CPT/HCPCS: 0241U; 36415; 80053; 81001; 81025; 85025; 99283; 99284

== ENCOUNTER 2025-02-11 01:27 | Inpatient (IN) | payer OTHER, SELFPAY ==
[2025-02-11] VITALS (14 sets, daily range): BP systolic 102–132; BP diastolic 59–78; PULSE 75–97; RESP 14–18; TEMP 36–36.8; O2SAT 94–100; BMI 29.0; BMI 34.5
--- NOTE | ~2025-02-11 | CT_ITS ---
CLINICAL HISTORY: RLQ pain and tenderenss CT abdomen and pelvis with contrast Comparison: None provided Findings: No consolidation or effusion. The liver, spleen, adrenal glands and pancreas are unremarkable. Kidneys, ureters and bladder are normal. Reference coronal image 35, the appendix is abnormally dilated, hyperenhancing and exhibits surrounding stranding. No definite free air or abscess. No bowel obstruction or free fluid. Well-positioned IUD. Uterus and adnexa otherwise unremarkable. No acute osseous finding. Impression: Findings suggest acute uncomplicated appendicitis. This document has been electronically signed by: Alessandro Jordan MD on 02/11/2025 09:14:23
[2025-02-11 01:57] LABS: Hematocrit 34.5 % (37.0-47.0); Hemoglobin 12.1 g/dl (12.0-16.0); Mean Corpuscular HGB Conc 35.1 g/dl (31.0-35.0); Mean Corpuscular Hemoglobin 29.3 pg (27.0-33.0); Mean Corpuscular Volume 83.5 fL (80.0-98.0); NRBC Abs Auto 0.000 X10*3/uL (0.0-0.012); NRBC Pct Auto 0.0 /100WBC (0.0-0.2); Platelet Count 398 X10*3/uL (160-400); Red Blood Count 4.13 X10*6/uL (4.20-5.50); White Blood Count 18.4 X10*3/uL (4.8-10.8)
[2025-02-11 02:06] LABS: Appearance Urine Clear; Glucose Urine UA Negative (Negative); PH 7.0 (5.0-9.0); Specific Gravity - Urine >= 1.030 (1.005-1.025); UMIC TRIGGER UACC YES
[2025-02-11 02:08] LABS: UACC Culture Trigger YES
[2025-02-11 02:11] LABS: Alanine Aminotransferase 17 U/L (0-31); Albumin Level 4.4 g/dL (3.5-5.0); Alkaline Phosphatase 93 U/L (39-117); Anion Gap 15 (12-20); Aspartate Amino Transferase 18 U/L (5-31); Blood Urea Nitrogen 11 mg/dL (9-16); Calcium 9.6 mg/dL (8.4-10.2); Carbon Dioxide 22 mmol/L (22-29); Chloride 108 mmol/L (96-108); Creatinine Clr Calc Pharmacy 126.8; Estimated Glomerular Filt Rate > 60; Lipase 19 U/L (8-78); Magnesium 1.9 mg/dL (1.6-2.6); Potassium 3.6 mmol/L (3.3-5.1); Sodium 141 mmol/L (135-145); Total Protein 7.0 g/dL (6.5-8.0)
--- NOTE | 2025-02-11 02:13 | MHC.EDTECH ---
Addendum entered by Ledy Whaley 02/11/25 03:17: @0215 Un-used urine cup placed back into the cart- Patient already gave a urine sample, Lab able to add on test. Original Note: @0210 The patient was brought into Main ED RM2. Where the patient sat down and began to have an emesis episode. 200 mL green in color. Patient stated unable to hold down anything today. Urine cup given to the patient and directions given to the rest, informed to use call lehman when urine sample is collected.
[2025-02-11 02:26] LABS: UPreg QC Valid YES
--- NOTE | 2025-02-11 02:46 | MHC.EDTECH ---
@9070 The patient was given hot pack and warm blanket.
--- NOTE | 2025-02-11 03:19 | PC.NURSE ---
pt reports the pain feels similar to when she had gall stones, but gallbladder was removed then. pain subsides after vomiting. states she vomited 4 times in last 24 hours. mostly RUQ pain. reports normal BMs. didn't eat anything concerning. blood in urine, pt starting period.
--- NOTE | 2025-02-11 06:58 | ED.GENADULT ---
HPI - General Adult General Chief complaint: Abdominal Pain Stated complaint: gen med Time Seen by Provider: 02/11/25 06:58 History of Present Illness ED Provider: rebel BERKOWITZ narrative: The patient is a 24-year-old female with a history of a cholecystectomy. She also has a an IUD. The patient says that she developed upper abdominal pain yesterday morning that was crampy in nature. It progressed throughout the day and seemed to migrate to the lower abdomen. She finally came to the emergency room because of ongoing discomfort. While waiting to be seen she has had a long wait, a 5 hour wait. At the time that I saw her she felt that she was feeling somewhat better but still has ongoing discomfort in the right lower quadrant. No fever. No urinary symptoms. No constipation. No vomiting. No vaginal discharge. She says that she is feeling better at this point but still has some pain in the right lower abdomen. Additionally she notes that she has no sense of an appetite. Related Data Home Medications ?Medication ?Instructions ?Recorded ?Confirmed tirzepatide (weight loss) 7.5 7.5 mg subcut WE@0900 02/11/25 02/11/25 mg/0.5 mL subcutaneous pen injector (Zepbound) Allergies Allergy/AdvReac Type Severity Reaction Status Date / Time No Known Allergies (No Known Allergy Verified 02/11/25 01:36 Allergies*) Review of Systems Review of Systems: Yes all other systems are reviewed and are negative [facility] Past Medical History Medical History (Updated 02/11/25 @ 10:14 by Neal Coronel MD) Back pain GERD (gastroesophageal reflux disease) BMI 35.0-35.9,adult Obesity Gallstones Surgical History (Updated 02/26/24 @ 12:01 by Amparo Jean CMA) Hx laparoscopic cholecystectomy Family History Family History (Updated 02/26/24 @ 12:02 by Amparo Jean CMA) Mother No problems noted. Father Diabetes Daughter No problems noted. Daughter No problems noted. Social History Social History (Updated 02/26/24 @ 12:03 by Amparo Jean CMA) Alcohol intake: current Alcohol intake frequency: holidays/special occasions only Patient Tobacco Use Status: Never used Tobacco Smoked in Last 30 Days: No Use of substances other than those prescribed or required for medical reasons: No Advance Directives: No Advance Directives Information Provided: Yes Nutrition Risks: No Nutritional Risk Patient : No Physical Exam ED Vital Signs: Vital Signs - 24 hr 02/11/25 01:32 02/11/25 02:13 02/11/25 07:11 Temperature 97.4 F 97.8 F 97.8 F Pulse Rate 88 91 85 Respiratory Rate 18 16 Blood Pressure 105/62 118/78 111/73 Pulse Oximetry 98 97 94 Oxygen Delivery Method Room Air Room Air Room Air 02/11/25 08:11 02/11/25 10:08 Temperature 98.3 F Pulse Rate 82 85 Respiratory Rate 18 18 Blood Pressure 115/72 102/74 Pulse Oximetry 100 98 Oxygen Delivery Method Room Air Room Air BMI result Body Mass Index 29.0 Const Other: The patient had fallen asleep while waiting to be seen. She was sleeping peacefully and woke easily with gentle stimulation. She did not seem in obvious distress. Orientation/consciousness: patient oriented x3 HENMT Other: The face is symmetrical. ?Mucous membranes moist. Eyes Other: Pupils are round equal, conjunctivae are clear, extraocular movements intact Neck Neck: Yes normal visual inspection and Yes full ROM Resp Effort & Inspection: normal respiratory effort Auscultation: clear to auscultation bilaterally Cardio Rate: regular rate Rhythm: regular rhythm Heart sounds: S1 normal heart sound present and S2 normal heart sound present GI Other: The patient is tender in the right lower quadrant General: Yes no CVA tenderness Back/Spine/Pelvis Back: no CVA tenderness Skin Other: The skin is dry and unremarkable General skin exam: no rashes or lesions noted Neuro General: patient oriented x3, gait normal, tone normal, moves all extremities, no focal motor deficits and CN's II-XI intact bilaterally Extrem Other: There is no calf swelling or tenderness. No asymmetry. No peripheral edema. Medications Administered Generic Name Dose Route Start Last Admin Trade Name Freq PRN Reason Stop Dose Admin Hydromorphone HCl 0.5 mg 02/11/25 10:09 02/11/25 11:38 Hydromorphone Hcl 0.5 Mg/0.5 Ml Syringe IVPUSH 0.5 mg Q3H PRN Administration Pain, Severe (Pain Scale 7-10) Protocol Lactated Ringer's 1,000 mls @ 100 mls/hr 02/11/25 10:15 02/11/25 10:34 Lr IVCONT 100 mls/hr .Q10H BOUCHRA Administration Ondansetron HCl 4 mg 02/11/25 10:09 02/11/25 11:38 Ondansetron Hcl 4 Mg/2 Ml Vial IVPUSH 4 mg QID PRN Administration Nausea Discontinued Medications Generic Name Dose Route Start Last Admin Trade Name Arshq PRN Reason Stop Dose Admin Ceftriaxone Sodium 2 gm 02/11/25 09:52 02/11/25 10:09 Ceftriaxone Sodium 2 Gm Vial IVPUSH 02/11/25 09:53 2 gm ONCE ONE Administration Sodium Chloride 1,000 mls @ 999 mls/hr 02/11/25 07:15 02/11/25 09:08 Ns IV 02/11/25 08:15 Infused .Q1H1M BOUCHRA Infusion Metronidazole 500 mg in 100 mls @ 100 mls/hr 02/11/25 09:52 02/11/25 11:37 Flagyl IV 02/11/25 10:51 Infused ONCE ONE Infusion Iohexol 100 ml 02/11/25 08:33 02/11/25 08:33 Iohexol 350 Mg/Ml 100 Ml Infus..Btl IV 02/11/25 08:34 85 ml ONCE ONE Administration Ketorolac Tromethamine 15 mg 02/11/25 07:09 02/11/25 07:18 Ketorolac Tromethamine 15 Mg/Ml Vial IVPUSH 02/11/25 07:10 15 mg ONCE ONE Administration Ondansetron HCl 4 mg 02/11/25 03:16 02/11/25 03:24 Ondansetron Odt 4 Mg Tab.Rapdis TRANSLINGU 02/11/25 03:17 4 mg ONCE ONE Administration Medical Decision Making Medical Decision Making [facility] Narrative: The patient is a 24-year-old woman who is here for 24 hours of abdominal pain. She has a long wait during the overnight shift and had fallen asleep. She told me that she was feeling better spontaneously. However on her exam she seems to have significant right lower quadrant tenderness [place] [address]. For this reason I ordered a CT of the abdomen and pelvis which shows acute appendicitis. The patient was given ceftriaxone and metronidazole. I contacted Dr. Coronel of General surgery and the patient will be admitted. Lab Data 02/11/25 01:50 02/11/25 01:50 Labs: Lab Results 02/11/25 Range/Units 01:50 WBC 18.4 H (4.8-10.8) X10*3/uL RBC 4.13 L (4.20-5.50) X10*6/uL Hgb 12.1 (12.0-16.0) g/dl Hct 34.5 L (37.0-47.0) % MCV 83.5 (80.0-98.0) fL MCH 29.3 (27.0-33.0) pg MCHC 35.1 H (31.0-35.0) g/dl RDW 13.1 (11.0-16.0) % Plt Count 398 (160-400) X10*3/uL MPV 8.1 L (9.4-12.3) fL Absolute Nucleated RBC 0.000 (0.0-0.012) X10*3/uL Nucleated RBC % (auto) 0.0 (0.0-0.2) /100WBC Sodium 141 (135-145) mmol/L Potassium 3.6 (3.3-5.1) mmol/L Chloride 108 (96-108) mmol/L Carbon Dioxide 22 (22-29) mmol/L Anion Gap 15 (12-20) BUN 11 (9-16) mg/dL Creatinine 0.63 (0.5-1.4) mg/dL Estim Creat Clear Calc 126.8 Estimated GFR > 60 Random Glucose 111 (60-115) mg/dL Calcium 9.6 (8.4-10.2) mg/dL Magnesium 1.9 (1.6-2.6) mg/dL Total Bilirubin 0.8 (0.0-1.0) mg/dL Direct Bilirubin 0.3 (0.0-0.5) mg/dL AST 18 (5-31) U/L ALT 17 (0-31) U/L Alkaline Phosphatase 93 (39-117) U/L Total Protein 7.0 (6.5-8.0) g/dL Albumin 4.4 (3.5-5.0) g/dL Lipase 19 (8-78) U/L Urine Color Yellow Urine Appearance Clear Urine pH 7.0 (5.0-9.0) Ur Specific [place] >= 1.030 H (1.005-1.025) Urine Protein 30 (1+) H (Neg-Trace) mg/dL Urine Glucose (UA) Negative (Negative) mg/dL Urine Ketones 80 (Negative) mg/dL Urine Blood Small (1+) H (Negative) Urine Nitrite Negative (Negative) Ur Leukocyte Esterase Trace H (Negative) Urine RBC 11-20 H (0-2) /HPF Urine WBC 6-10 H (0-5) /HPF Ur Squamous Epith Cells 3-5 (0-2) /HPF Urine Bacteria None Seen (None Seen) Hyaline Casts 0-2 (0-2) /LPF Urine Test NEGATIVE (NEGATIVE) Discharge Plan Discharge Clinical Impression: Acute appendicitis Qualifiers: Acute appendicitis type: with localized peritonitis Appendicitis gangrene presence: without gangrene Appendicitis perforation presence: without perforation Appendicitis abscess presence: without abscess Qualified Code(s): K35.30 - Acute appendicitis with localized peritonitis, without perforation or gangrene Patient Disposition: Admitted As Inpatient
[2025-02-11] MEDS: iohexoL 350 MG/ML 100 ML INFUS..BTL IV (08:33)
--- NOTE | 2025-02-11 10:12 | PM.HPGS ---
History of Present Illness History of Present Illness Date of Service: 02/11/25 Chief complaint: Abdominal pain right lower quadrant Narrative: Mitra Jaramillo is a 24 year old female presenting with complaints of abdominal pain of 24 hours duration. The pain began in the right upper quadrant and initially felt similar to her previous gallbladder symptoms however the pain gradually radiated down into her right lower quadrant were remains the currently. The pain was associated with nausea and vomiting. She also complains of pain with motion and anorexia. Her last meal was yesterday. She last vomited approximately 05:00 this morning. She denies a previous history of abdominal pain in the right lower quadrant. She presented to the emergency department and was noted to be tender in the right lower quadrant. Laboratories revealed an elevated WBC of [address] abdomen and pelvis revealed a dilated appendix with surrounding inflammatory changes suggestive of acute appendicitis without perforation or abscess. She is admitted to the surgical service for further management of the acute appendicitis. Review of Systems Review of Systems: Yes all other systems are reviewed and are negative PMFSH Past Medical History Medical History (Updated 02/11/25 @ 10:14 by Neal Coronel MD) Back pain GERD (gastroesophageal reflux disease) BMI 35.0-35.9,adult Obesity Gallstones Family History Family History (Updated 02/26/24 @ 12:02 by Amparo Jean CMA) Mother No problems noted. Father Diabetes Daughter No problems noted. Daughter No problems noted. Surgical History Surgical History (Updated 02/26/24 @ 12:01 by Amparo Jean CMA) Hx laparoscopic cholecystectomy Social History Social History (Updated 02/26/24 @ 12:03 by Amparo Jean CMA) Alcohol intake: current Alcohol intake frequency: holidays/special occasions only Patient Tobacco Use Status: Never used Tobacco Smoked in Last 30 Days: No Use of substances other than those prescribed or required for medical reasons: No Advance Directives: No Advance Directives Information Provided: Yes Patient : No Meds Allergies Allergy/AdvReac Type Severity Reaction Status Date / Time No Known Allergies (No Known Allergy Verified 02/11/25 01:36 Allergies*) Active Medications: Current Medications Hydromorphone HCl (Hydromorphone Hcl 0.5 Mg/0.5 Ml Syringe) 0.5 mg IVPUSH Q3H PRN; Protocol PRN Reason: Pain, Severe (Pain Scale 7-10) Metronidazole (Flagyl) 500 mg in 100 mls @ 100 mls/hr IV ONCE ONE Stop: 02/11/25 10:51 Lactated Ringer's (Lr) 1,000 mls @ 100 mls/hr IVCONT .Q10H BOUCHRA Acetaminophen (Ofirmev) 1,000 mg in 100 mls @ 400 mls/hr IV Q6H PRN PRN Reason: Pain, Mild (Pain Scale 1-3) Ondansetron HCl (Ondansetron Hcl 4 Mg/2 Ml Vial) 4 mg IVPUSH QID PRN PRN Reason: Nausea Home Medications ?Medication ?Instructions ?Recorded ?Confirmed ?Last Taken ?Type ibuprofen 200 mg capsule 200 mg PO Q6H PRN 03/25/24 03/25/24 Unknown History omeprazole 20 mg capsule,delayed 20 mg PO DAILY 03/25/24 03/25/24 Unknown History release Physical Exam Vital Signs: Vital Signs: Last Vital Signs Temp 98.3 F 02/11/25 10:08 Pulse 85 02/11/25 10:08 Resp 18 02/11/25 10:08 BP 102/74 02/11/25 10:08 Pulse Ox 98 02/11/25 10:08 O2 Del Method Room Air 02/11/25 10:08 BMI result Body Mass Index 29.0 Const: General: cooperative and no acute distress Nutritional Appearance: well nourished Orientation/consciousness: patient oriented x3 Limitations: no limitations HEENT: Head: Yes normocephalic and Yes atraumatic Ears: hearing grossly normal bilaterally Resp: Effort & Inspection: normal respiratory effort, no audible wheezes, no cough and no respiratory distress Cardio: Jugular venous distension: no JVD GI: Inspection: Yes normal to inspection Palpation (GI): Soft to palpation, Tenderness to palpation present (GI) in the RLQ and at McBurney's point, no guarding, not rigid and No hepatosplenomegaly present Percussion: Yes normal to percussion Auscultation: normal bowel sounds Rectal Exam - Female: deferred Skin: Other: Warm, dry, no rash Neuro: General: patient oriented x3 Extrem: General: Yes no clubbing, cyanosis or edema Results Results Labs: Short CBC 02/11/25 Range/Units 01:50 WBC 18.4 H (4.8-10.8) X10*3/uL Hgb 12.1 (12.0-16.0) g/dl Hct 34.5 L (37.0-47.0) % Plt Count 398 (160-400) X10*3/uL BMP 02/11/25 01:50 Sodium 141 Potassium 3.6 Chloride 108 Carbon Dioxide 22 BUN 11 Creatinine 0.63 Calcium 9.6 Liver Function 02/11/25 Range/Units 01:50 Total Bilirubin 0.8 (0.0-1.0) mg/dL Direct Bilirubin 0.3 (0.0-0.5) mg/dL AST 18 (5-31) U/L ALT 17 (0-31) U/L Alkaline Phosphatase 93 (39-117) U/L Albumin 4.4 (3.5-5.0) g/dL Urine 02/11/25 Range/Units 01:50 Urine Color Yellow Urine Appearance Clear Urine pH 7.0 (5.0-9.0) Ur Specific [place] >= 1.030 H (1.005-1.025) Urine Protein 30 (1+) H (Neg-Trace) mg/dL Urine Glucose (UA) Negative (Negative) mg/dL Urine Test NEGATIVE (NEGATIVE) Assessment and Plan (1) Acute appendicitis: Qualifiers: Acute appendicitis type: with localized peritonitis Appendicitis gangrene presence: without gangrene Appendicitis perforation presence: without perforation Appendicitis abscess presence: without abscess Qualified Code(s): K35.30 - Acute appendicitis with localized peritonitis, without perforation or gangrene Status: Acute Plan 24-year-old female patient presenting with complaints of abdominal pain in the right lower quadrant found on examination to have tenderness in the right lower quadrant over McBurney's point. Workup revealed an elevated WBC and CT abdomen and pelvis confirmed a dilated appendix suggestive of acute appendicitis. We discussed options for management of acute appendicitis. I recommended a laparoscopic or possible open appendectomy and after discussion of procedure, risks and alternatives, she consents to the surgery. She has been added onto the operative schedule for today. Quality Stroke Does the patient have a stroke diagnosis?: No VTE Prior VTE?: No VTE Risk Level:: Surgical - low VTE Device Contraindication: N/A - Device Ordered VTE Drug Contraindication: Treatment Not Indicated Procedures Date of Service Date of Service: 02/11/25
--- NOTE | 2025-02-11 10:29 | PHA.MEDREC ---
Pharmacy Consult ? Medication Reconciliation Pharmacy has completed the medication reconciliation. Spoke to patient at bedside, only reported taking Zepbound but noted she is to take a break for 2 weeks
[2025-02-11] MEDS: Lactated Ringers 1,000 ML 100 ML IVCONT (10:34)
[2025-02-11] MEDS: metroNIDAZOLE/NS 500 MG/100 ML PIGGYBACK 100 MG IV (10:35)
--- NOTE | 2025-02-11 11:27 | PC.NURSE ---
Assumed care of this patient at 1100, patient resting quietly on stretcher at this time, endorsing increasing pain. Awaiting OR time, NPO.
--- NOTE | 2025-02-11 13:25 | P.CONAN_ITS ---
[facility] Active Problems Active Problems: All Active Problems Acute appendicitis (Acute) Back pain (Acute) GERD (gastroesophageal reflux disease) (Acute) BMI 35.0-35.9,adult (Acute) Obesity (Acute) Past Medical History Medical History Back pain GERD (gastroesophageal reflux disease) BMI 35.0-35.9,adult Obesity Gallstones Functional capacity: independent ambulation Patient : No Family History Family History Mother No problems noted. Father Diabetes Daughter No problems noted. Daughter No problems noted. Family history of problems with anesthesia: No Surgical History Surgical History Hx laparoscopic cholecystectomy History of Problems with Anesthesia: No Social History Social History Alcohol intake: current Alcohol intake frequency: holidays/special occasions only Patient Tobacco Use Status: Never used Tobacco Smoked in Last 30 Days: No Use of substances other than those prescribed or required for medical reasons: No Advance Directives: No Advance Directives Information Provided: Yes Nutrition Risks: No Nutritional Risk Patient : No Meds Allergies Allergy/AdvReac Type Severity Reaction Status Date / Time No Known Allergies (No Known Allergy Verified 02/11/25 01:36 Allergies*) Active Medications: Current Medications Hydromorphone HCl (Hydromorphone Hcl 0.5 Mg/0.5 Ml Syringe) 0.5 mg IVPUSH Q3H PRN; Protocol PRN Reason: Pain, Severe (Pain Scale 7-10) Last Admin: 02/11/25 11:38 Dose: 0.5 mg Lactated Ringer's (Lr) 1,000 mls @ 100 mls/hr IVCONT .Q10H BOUCHRA Last Admin: 02/11/25 10:34 Dose: 100 mls/hr Acetaminophen (Ofirmev) 1,000 mg in 100 mls @ 400 mls/hr IV Q6H PRN PRN Reason: Pain, Mild (Pain Scale 1-3) Ondansetron HCl (Ondansetron Hcl 4 Mg/2 Ml Vial) 4 mg IVPUSH QID PRN PRN Reason: Nausea Last Admin: 02/11/25 11:38 Dose: 4 mg Sodium Chloride (0.9 % Sodium Chloride Flush 3 Ml Syringe) [address] [facility] Home Medications ?Medication ?Instructions ?Recorded ?Confirmed ?Last Taken ?Type tirzepatide (weight loss) 7.5 7.5 mg subcut WE@0900 02/11/25 02/08/25 History mg/0.5 mL subcutaneous pen injector (Zepbound) Exam Height,Weight and Vital Signs: Height 5 ft 2 in Weight 72 kg Last Vital Signs Temp 98.3 F 02/11/25 10:08 Pulse 85 02/11/25 10:08 Resp 18 02/11/25 10:08 BP 102/74 02/11/25 10:08 Pulse Ox 98 02/11/25 10:08 O2 Del Method Room Air 02/11/25 10:08 Pertinent Lab Results Pertinent Lab Results: Laboratory Tests 02/11/25 01:50 WBC 18.4 H RBC 4.13 L Hgb 12.1 Hct 34.5 L MCV 83.5 MCH 29.3 MCHC 35.1 H RDW 13.1 Plt Count 398 MPV 8.1 L Absolute Nucleated RBC 0.000 Nucleated RBC % (auto) 0.0 Sodium 141 Potassium 3.6 Chloride 108 Carbon Dioxide 22 Anion Gap 15 BUN 11 Creatinine 0.63 Estim Creat Clear Calc 126.8 Estimated GFR > 60 Random Glucose 111 Calcium 9.6 Magnesium 1.9 Total Bilirubin 0.8 Direct Bilirubin 0.3 AST 18 ALT 17 Alkaline Phosphatase 93 Total Protein 7.0 Albumin 4.4 Lipase 19 Urine Color Yellow Urine Appearance Clear Urine pH 7.0 Ur Specific [place] >= 1.030 H Urine Protein 30 (1+) H Urine Glucose (UA) Negative Urine Ketones 80 Urine Blood Small (1+) H Urine Nitrite Negative Ur Leukocyte Esterase Trace H Urine RBC 11-20 H Urine WBC 6-10 H Ur Squamous Epith Cells 3-5 Urine Bacteria None Seen Hyaline Casts 0-2 Urine Test NEGATIVE Airway Mallampati Class: II TM Dist: >3cm Neck ROM: Full Heart: RRR Lungs: CTA Assessment and Plan Assessment Anesthesia Assessment: Anesthesia Plan Discussed and Chart Reviewed Final Anesthetic Review Family History of Problems with Anesthesia: No History of Problems with Anesthesia: No NPO: Yes ASA Class: II and Emergency Final Preanesthetic Review: Meds/Allgs Chart Reviewed, Consent Obtained/Reviewed and Anes Risks/Benef Reviewed Patient Risk: Intermediate Procedure Risk: Low Anesthetic Plan Anesthetic Plan: MAC: Disposition: Standard PACU
--- NOTE | 2025-02-11 13:54 | P.OP_ITS ---
Operative Note Operative Note Date of Service: 02/11/25 Narrative: Preoperative diagnosis: Acute appendicitis Postoperative diagnosis: Same Procedure: Laparoscopic appendectomy Surgeon: Neal Coronel MD Vice President Global Advertising Sales: None Anesthesia: General endotracheal Indications for procedure: 24-year-old female patient presenting with complaints of abdominal pain in the right lower quadrant [place] [address] findings consistent with acute appendicitis. Operative findings: Mildly inflamed appendix Specimen: Appendix Estimated blood loss: Less than 2 mL Complications: None Procedure details: Patient was brought to the OR and placed in a supine position. After administering general anesthesia the patient's abdomen was prepped with ChloraPrep and draped in a sterile fashion. A surgical time-out was called and consent confirmed. Patient received preoperative antibiotics and Venodyne boots were in place. Local anesthesia consisting of 0.5% Sensorcaine without epinephrine was infiltrated in periumbilical region. A 5 mm incision was made below the umbilicus and carried down through subcutaneous tissue. A Veress needle was then inserted while elevating abdominal cavity with towel clips. After a positive drop test the abdomen was insufflated to a pressure of 15 mm of mercury. The Veress needle was removed and a 5 mm trocar inserted. The camera was then inserted in the abdomen explored. A 2nd 5 mm trocars placed in the lower midline. A 12 mm trocar was then placed in the left lower quadrant. The patient was then placed in a Trendelenburg position and rotated to the left. The appendix was identified in the right lower quadrant and brought up using blunt dissecting clamps. The mesentery of the appendix was then divided using the LigaSure. The appendiceal artery was cauterized and divided using the LigaSure. Dissection was continued down to the base of the cecum. An Endo-DAVID stapler with a purple reload was then used to divide the appendix at the base with the cecum. The appendix was then placed in Endo-Catch bag and brought out through the left lower quadrant incision. The abdomen was then irrigated with saline solution and suctioned dry. Wounds were checked for hemostasis. CO2 was then evacuated from the abdominal cavity and all trocars removed. Skin was closed at all incisions using a subcuticular 4-0 Polysorb suture. Steri- Strips 2 x 2 gauze and Tegaderm were then applied. The patient tolerated the procedure well. Sponge, instrument, needle counts reported as correct. The patient was transferred to PACU in stable condition.
--- NOTE | 2025-02-11 14:11 | PC.NURSE ---
iv patent #[id number] left a/c
[2025-02-11] MEDS: 0.9 % Sodium Chloride Flush 3 ML SYRINGE IVFLUSH ×2 (15:08→20:40)
[2025-02-12 03:45] VITALS: BP 110/64; PULSE 61; RESP 18; TEMP 36.4; O2SAT 92
[2025-02-12 07:22] VITALS: BP 107/69; PULSE 64; RESP 16; TEMP 36.4; O2SAT 94
--- NOTE | 2025-02-12 08:26 | PM.PNGS ---
Subjective Subjective Date of Service: 02/12/25 Interval history: Patient reports some incisional soreness but otherwise feels well. Was able to tolerate a regular diet last night. Physical Exam Vital Signs: Vital Signs: Last Vital Signs Temp 97.6 F 02/12/25 07:22 Pulse 64 02/12/25 07:22 Resp 16 02/12/25 07:22 BP 107/69 02/12/25 07:22 Pulse Ox 94 02/12/25 07:22 O2 Del Method Room Air 02/12/25 07:22 BMI result Body Mass Index 34.5 Const: General: no acute distress Nutritional Appearance: well nourished Orientation/consciousness: patient oriented x3 Limitations: no limitations Resp: Effort & Inspection: normal respiratory effort GI: Other: Soft and nondistended. Trocar incisions with clean dressings, no surrounding erythema. Skin: Other: Warm, dry, no rash Neuro: General: patient oriented x3 Extrem: Other: No edema Objective Data Active Medications Hydromorphone HCl (Hydromorphone Hcl 0.5 Mg/0.5 Ml Syringe) 0.5 mg IVPUSH Q3H PRN; Protocol PRN Reason: Pain, Severe (Pain Scale 7-10) Last Admin: 02/12/25 02:45 Dose: 0.5 mg Documented By: HAY Acetaminophen ([facility]) 1,000 mg in 100 mls @ 400 mls/hr IV Q6H PRN PRN Reason: Pain, Mild (Pain Scale 1-3) Ondansetron HCl (Ondansetron Hcl 4 Mg/2 Ml Vial) 4 mg IVPUSH QID PRN PRN Reason: Nausea Last Admin: 02/11/25 11:38 Dose: 4 mg Documented By: ANA MARIA Oxycodone HCl (Oxycodone Hcl Immed Release 5 Mg Tablet) 5 mg PO Q6H PRN PRN Reason: Pain, Moderate(Pain Scale 4-6) Sodium Chloride (0.9 % Sodium Chloride Flush 3 Ml Syringe) 3 [facility] Last Admin: 02/11/25 20:40 Dose: 3 ml Documented By: HAY Labs 02/11/25 01:50 02/11/25 01:50 Procedures Date of Service Date of Service: 02/12/25 Progress Note: A&P Assessment and plan (1) Acute appendicitis: Status: Acute (2) S/P laparoscopic appendectomy: Status: Acute Plan 24-year-old female patient s/p laparoscopic appendectomy for uncomplicated acute appendicitis. She tolerated the procedure well and remains hemodynamically stable. Her wounds are clean and intact with no discharge. Patient tolerated regular diet yesterday without nausea or vomiting. She feels ready for discharge to home. Discharge to home with follow-up in the office in 1 week. She will stay out of work for 2 weeks. I recommended low lifting more than 10 lb for the next 2 weeks. She may resume a regular diet. The patient expressed understanding and agrees with the plan. Time Spent With Patient Time: Total time managing care of this patient today ____ minutes. Quality Stroke Does the patient have a stroke diagnosis?: No VTE Prior VTE?: No VTE Risk Level:: Surgical - low VTE Device Contraindication: N/A - Device Ordered VTE Drug Contraindication: Treatment Not Indicated
--- NOTE | 2025-02-12 08:30 | P.DS_ITS ---
DS: Providers Provider Date of Service: 02/12/25 Date of admission: 02/11/25 10:31 Date of discharge: 02/12/25 Primary care physician: Unknown Physician Admitting clinician: Neal Coronel Discharging clinician: Neal Coronel DS: Diagnosis Discharge Diagnosis (1) Acute appendicitis: Status: Acute (2) S/P laparoscopic appendectomy: Status: Acute DS: Summary Hospital Course Hospital Course: 24-year-old female patient presenting with complaints of abdominal pain beginning in the right upper quadrant but then radiating down to the right lower quadrant. The pain began approximately 24 hours prior to presentation to the emergency department on 07/14/2024. She reports increased pain with motion especially moving in bed. The pain was associated with nausea and vomiting. She denied fever or chills. She has a previous history of a laparoscopic cholecystectomy approximately 1 year ago. She presented to the emergency department and was noted to be tender in the right lower quadrant. Workup with laboratories revealed an elevated WBC of 18. CT abdomen and pelvis revealed a thickened appendix with surrounding inflammatory changes consistent with acute appendicitis. She was admitted to the surgical service and arrangements made for a laparoscopic appendectomy. This was performed on 02/11/2025. Operative findings were consistent with acute appendicitis without abscess or gangrene. She tolerated the procedure well and remained hemodynamically stable. She was started on a regular diet and tolerated this well. POD 1 she is comfortable with some mild incisional discomfort especially in the left lower quadrant. Her wounds are clean, dry and intact. Plan for discharge to home today. She should avoid lifting greater than 10 lb for the next 2 weeks. She may resume a regular diet without restriction. I recommended a follow-up appointment in the office in approximately 1 week for wound. She may remove the plastic dressings after 3 day and leave the wounds open. She may shower at any point. She is welcome to call our office for any new concerns or questions. Time Attestation Discharge Coordination Time (in mins): 25 Quality: Safe Use of Opioids Does Pt have an Active Cancer Diagnosis on the Problem List?: No Quality: Stroke Does the patient have a stroke diagnosis?: No Physical Exam Vital Signs: Vital Signs: Last Vital Signs Temp 97.6 F 02/12/25 07:22 Pulse 64 02/12/25 07:22 Resp 16 02/12/25 07:22 BP 107/69 02/12/25 07:22 Pulse Ox 94 02/12/25 07:22 O2 Del Method Room Air 02/12/25 07:22 BMI result Body Mass Index 34.5 Const: General: no acute distress Nutritional Appearance: well nourished Orientation/consciousness: patient oriented x3 Limitations: no limitations Resp: Effort & Inspection: normal respiratory effort GI: Other: Soft and nondistended. Trocar incisions with clean dressings, no surrounding erythema. Skin: Other: Warm, dry, no rash Neuro: General: patient oriented x3 Extrem: Other: No edema DS: Data Data Completed and Pending Pending studies at discharge: Pending at discharge 02/11/25 13:37 Surgical [PTH] Routine Discharge Plan Discharge Anticipated Discharge Date/Time: 02/12/25 08:19 Patient Disposition: Home, Self-Care Discharge Diagnosis: Acute appendicitis Referrals: Neal Coronel MD [Physician, General Surgery] - 1 Week PhysicianChandana [Primary Care Provider, Medical] - 1 Week Discharge Medications: New oxycodone 5 mg tablet 5 mg PO Q6H PRN (Reason: pain (scale score 7-10)) Qty: 15 0RF Rx Instructions: Partial Fill upon patient request. Continued Zepbound 7.5 mg/0.5 mL pen injector 7.5 mg subcut WE@0900 Discharge Orders: Discharge Order (Routine); Ordered 02/12/25 Ordered By: Neal Coronel Diet: Advance to usual diet Activity on Discharge: No heavy lifting Stand Alone Forms: Patient Portal Discharge page, Work/School Release Print Language: Bel[place]ian Activity Restrictions/Additional Instructions: No lifting > 10 pounds for 2 weeks No driving for one week Ice to the incision x 24 hours After 24 hours, use warm compress or heating pad on low as needed Take Tylenol Extra-strength 1-2 tabs every 6 hours as needed Oxycodone every 6-8 hours as needed for pain Colace 100 mg every day as needed for constipation Remove dressing in 3 days Follow up in office in one week (call office at [phone] for appointment). Care Plan Goals: Normal activity and diet Health Concerns: Abdominal pain right lower quadrant Plan of Treatment: Laparoscopic appendectomy on 02/11/2025 Assessment: Acute appendicitis, uncomplicated
[2025-02-12 08:54] VITALS: RESP 14
[2025-02-12] MEDS: 0.9 % Sodium Chloride Flush 3 ML SYRINGE IVFLUSH (08:54)
--- NOTE | 2025-02-12 09:02 | PC.NURSE ---
Patient concern with prior experience with Oxycodone causing GI burning , requiring previous hospitalization. Reached out to Provider Berna via [employer] and discharge medication changed.
--- NOTE | 2025-02-12 09:07 | MHC.CM.PN ---
PT REPORTS SHE LIVES WITH HER S/O AND CHILDREN SHE IS INDEPENDENT AND WORKS SHE HAS NO DME OR SERVICES DECLINES HCP PCP: RONNIE BECKER PT WILL DC HOME TODAY WITH NO SERVICES VIA PRIVATE TRANSPORT
[2025-02-12 11:00] VITALS: BP 110/70; PULSE 70; RESP 16; TEMP 36.1; O2SAT 97
== END 2025-02-12 11:05 | disposition home or self-care (01) | DRG 234 ==
LOC: HO.ED 10:13 → HO.EDOVER 10:32 → HO.S3 14:22
PROVIDERS: Admitting Provider Surgery; Emergency Provider Emergency Medicine; Visit Provider Surgery
PROC: 0DTJ4ZZ Resection of Appendix, Percutaneous Endoscopic Approach (ICD-10-PCS; CPT 44970; principal; 2025-02-11 13:00)
DX: K35.30 Acute appendicitis with localized peritonitis, without perforation or gangrene (principal); Z79.899 Other long term (current) drug therapy
CPT/HCPCS: 36415; 74177; 80053; 81001; 81003; 81025; 82248; 83690; 83735; 85027; 87086; 88304; 99221; 99284; J0131; J0696; J1171; J1836; J1885; J2003; J2250; J2405; J2704; J2795; J3010; J7120; Q9967

== ENCOUNTER → 2025-02-11 02:18 | Outpatient (BNV) | payer OTHER, SELFPAY | PROVIDERS: Emergency Provider Emergency Medicine; Visit Provider Surgery | DX: K35.30 Acute appendicitis with localized peritonitis, without perforation or gangrene (principal); Z90.49 Acquired absence of other specified parts of digestive tract | CPT/HCPCS: 44970; 99024; 99222 ==

== ENCOUNTER → 2025-02-11 07:09 | Outpatient (BNV) | payer OTHER, SELFPAY | PROVIDERS: Emergency Provider Emergency Medicine; Visit Provider Radiology Vascular & Interventional Radiology | DX: R10.31 Right lower quadrant pain (principal); R10.813 Right lower quadrant abdominal tenderness | CPT/HCPCS: 74177 ==

== ENCOUNTER 2025-02-21 10:52 | Outpatient (AMB) | payer OTHER, SELFPAY ==
--- NOTE | 2025-02-21 10:55 | MHC.OFFVIS ---
Vital Signs 02/21/25 11:01 Weight 184 lb BP 114/68 Blood Pressure Location Rt brachial Position Sitting Pulse 80 Intake Visit Reasons: s/p lap appy Intake Note: Patient here s/p Laparoscopic appendectomy on 02-11-2025. Patient c/o: diarrhea. States took stool softner for constipation due to rx pain meds but diarrhea not stopping. 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 States she was experiencing constipation, did not have a bowel movement for 3 days after the procedure. So she took stool softener. Has now been having diarrhea 2 times per day since. Does not endorse any excessive malodor or discoloration of the stool. Denies fevers or chills, abdominal distention. Otherwise not experiencing any abdominal pain, incision sites are doing well denies discharge from them. [facility] Medical History (Updated 02/21/25 @ 11:10 by Marquez Rashid PA-C) Acute appendicitis Back pain GERD (gastroesophageal reflux disease) BMI 35.0-35.9,adult Obesity Gallstones Surgical History (Updated 02/12/25 @ 08:28 by Neal Coronel MD) S/P laparoscopic appendectomy (02/11/25) Hx laparoscopic cholecystectomy Family History Mother No problems noted. Father Diabetes Daughter No problems noted. Daughter No problems noted. Social History Household Members: Significant Other and Children Housing: Apartment Alcohol intake: current Alcohol intake frequency: holidays/special occasions only Patient Tobacco Use Status: Never used Tobacco service: No Review of Systems Const All systems reviewed & are unremarkable except as noted in HPI and below Physical Exam Vital Signs: Last Vital Signs Pulse 80 02/21/25 11:01 BP 114/68 02/21/25 11:01 Const General: comfortable and no acute distress Orientation/consciousness: patient oriented x3 GI Other: Incision sites healing well., Steri-Strips removed in office. Incision sites are clean dry and intact. No concern for infection at this time Inspection: No distended Palpation (GI): Soft to palpation and nontender Neuro General: patient oriented x3 Assessment & Plan Assessment & Plan (1) S/P laparoscopic appendectomy: Onset Date: 02/11/25 Comment: Dr. Coronel Code(s): Z90.49 - Acquired absence of other specified parts of digestive tract Category: Medical Plan 24-year-old female s/p laparoscopic appendectomy on 02/11/2025 returning to the office for routine follow up. Overall she is doing well, now experiencing frequent diarrhea for about the last week. States she was originally constipated the 1st 3 days after the procedure so she took the stool softener as prescribed. She does not note any discoloration of the stool, there was no significant malodor. Stools are soft and liquidy. We will obtain stool culture for C diff PCR, if negative patient okay to take loperamide. I sent a prescription for loperamide to her pharmacy, discussed that she is to not take this until she is called from the office regarding her results of the stool culture once they result. She understands this. Otherwise the abdomen is soft and benign, the incision sites were healing well without concern for infection at this time. We will continue activity restrictions no heavy lifting greater than 15-20 lb for 1 more week. She is okay to returned to work given that there was no heavy lifting requirements at work. She is okay with this plan. She will follow-up in 2 weeks for routine one-month follow up. She can call to be seen sooner with any concerns or questions Orders: Orders CDiff Gene PCR Today R19.7 - Diarrhea, unspecified, Z90.49 - Acquired absence of other specified parts of digestive tract Medications: New loperamide 2 mg PO BID PRN 20 caps 0RF loose stool Coding Level of Care Code Global (77402) Diagnoses S/P laparoscopic appendectomy Z90.49
[2025-02-21 11:01] VITALS: BP 114/68; PULSE 80
== END 2025-02-21 11:08 | disposition home or self-care (01) ==
LOC: HO.HGS 10:53
PROVIDERS: PCP Internal Medicine
DX: Z90.49 Acquired absence of other specified parts of digestive tract (principal)
CPT/HCPCS: 99024

== ENCOUNTER → 2025-02-21 10:52 | Outpatient (BNVA) | payer OTHER, SELFPAY | PROVIDERS: PCP Internal Medicine | DX: Z98.890 Other specified postprocedural states (principal); Z90.49 Acquired absence of other specified parts of digestive tract; R19.7 Diarrhea, unspecified | CPT/HCPCS: 99212 ==